=== PATIENT | male | born 1955 | race Caucasian/White ===

== ENCOUNTER 2024-11-29 12:07 | Outpatient (OUT) | payer MEDICARE, OTHER, SELFPAY ==
--- NOTE | 2024-11-29 13:19 | PM.CN ---
Consult Note: HPI Data of Consult Patient: new to practice Requesting Physician: Rima Abraham NP Primary Care Provider: ALEC VANESSA Consult Narrative Reason for consult: neck, right thoracic, low back pain Narrative: Onesimo Caldwell a pleasant 69 year old male presents for evaluation of neck, middle right back, and low back pain worsening over the last 3 months. initially pt reported no injury or known cause of onset, however upon conversation pt reports he fell in july/august with increased pain since. Pain today 2/10 increasing with bending, twisting. utilizing motrin for headaches. has not trialed tylenol or motrin for joint pain/inflammation. failed heat and ice. no imaging or PT per pt. cc:: CC: Rima Abraham NP Meds Home Medications and Allergies Home Medications ?Medication ?Instructions ?Recorded ?Confirmed ?Type fluoxetine 40 mg capsule (Prozac) 40 mg PO QAM 11/29/24 11/29/24 History levothyroxine 75 mcg capsule 75 mcg PO DAILY 11/29/24 11/29/24 History lisinopril 10 mg tablet 10 mg PO DAILY 11/29/24 11/29/24 History metformin 500 mg tablet 500 mg PO BID 11/29/24 11/29/24 History omeprazole 20 mg capsule,delayed 20 mg PO DAILY 11/29/24 11/29/24 History release pravastatin 40 mg tablet 40 mg PO DAILY 11/29/24 11/29/24 History Allergies Allergy/AdvReac Type Severity Reaction Status Date / Time metaxalone (From Skelaxin) Allergy Unknown Unknown Verified 11/29/24 13:04 pioglitazone Allergy Unknown Unknown Verified 11/29/24 13:04 tizanidine Allergy Unknown Unknown Verified 11/29/24 13:04 Exam Neck & C-Spine Cervical spine: cervical ROM abnormal and pain with cervical ROM Other: positive spurlings strength intact BUE, sensation intact BUE Back & Pelvis Thoracic spine/upper back: thoracic ROM normal; no pain with ROM and no thoracic spinal tenderness Lumbar spine/lower back: lumbar ROM normal; no pain with ROM and no lumbar spinal tenderness Other: notes pain over left flank without rash or tenderness to touch no increased pain with facet loading or palpation strength 5/5 in BLE sensation intact Assessment and Plan Assessment and Plan (1) Cervical spondylosis: (2) Thoracic spondylosis: (3) Lumbar spondylosis: (4) Myalgia: Plan 69 year old male with chronic neck, middle back, low back pain. advised tylenol and NSAIDs PRN. start baclofen 5-10mg BID PRN pain/spasms, risks vs benefits reviewed. PT for neck and back pain. update cervical, thoracic, lumbar xray. f/u 8 weeks to assess response to PT
== END 2024-11-29 12:08 | disposition home or self-care (01) ==
LOC: PM 12:08
PROVIDERS: PCP Internal Medicine; Visit Provider Nurse Practitioner
DX: M47.812 Spondylosis without myelopathy or radiculopathy, cervical region (principal); M47.814 Spondylosis without myelopathy or radiculopathy, thoracic region; M47.816 Spondylosis without myelopathy or radiculopathy, lumbar region; M50.30 Other cervical disc degeneration, unspecified cervical region; M51.369 Other intervertebral disc degeneration, lumbar region without mention of lumbar back pain or lower extremity pain; M48.14 Ankylosing hyperostosis [Forestier], thoracic region; M79.18 Myalgia, other site
CPT/HCPCS: 72050; 72070; 72110; G0463

== ENCOUNTER 2024-11-29 13:33 | Outpatient (OUT) | payer MEDICARE, OTHER, SELFPAY ==
--- NOTE | 2024-11-29 13:39 | XR_ITS ---
[address] [address] Patient Name: NEAL TOBIN MRN: [id number] date: 1955 Sex: M Assigned Patient Location: [facility] Current Patient Location: [facility] Accession/Order Number: [id number] Exam Date: 11/29/2024 15:10 Report Date: 11/29/2024 15:16 At the request of: COLTEN PAEZ NP Procedure: XR thoracic spine 2V 5 views of thecervical spine HISTORY: Chronic cervical, thoracic and lumbar back pain for years. Injury. COMPARISON: 10/02/2022 POSTOPERATIVE CHANGES: None BONY ALIGNMENT: Adequate HYPERMOBILITY::No bending imaging. LISTHESIS:Similar 5 mm C3-4 degenerative retrolisthesis additional mild degenerative listhesis. FRACTURE: None DISC DEGENERATION: Extensive C3-4 spondylosis. Extensive C4-5 spondylosis. Extensive C5-6 spondylosis. Moderate C6-7 spondylosis. FACETS: Multilevel facet degeneration FORAMEN: C3-C7 bilateral bony neural foraminal narrowing DENS: Intact CRANIOCERVICAL JUNCTION: Unremarkable SOFT TISSUES: Unremarkable XR/XR cervical spine 5V IMPRESSION: Extensive multilevel cervical degenerative and degenerative changes. Similar 5 mm C3-4 degenerative retrolisthesis 3 views thoracic spine Anterior hyperostosis. Moderate spondylosis. No acute compression fracture. IMPRESSION: Thoracic spondylosis and hyperostosis. 4 views lumbar spine Extensive L5-S1 spondylosis. Extensive L1-L2 3 spondylosis. Mild L3-4 spondylosis. Adequate alignment. No acute displaced fracture. Anterior hyperostosis. Lower lumbar hypertrophic facet changes. IMPRESSION: Extensive lower lumbar facet degeneration. Extensive L5-S1, L1-2 and L2-3 spondylosis. Impression dictated by: Gigi Garcia M.D. 11/29/2024 3:16 PM Dictation Location: [place] [address] Electronically authenticated by: [id number] Y Date: 11/29/2024 15:16
--- NOTE | 2024-11-29 13:39 | XR_ITS ---
[address] [address] Patient Name: NEAL TOBIN MRN: [id number] date: 1955 Sex: M Assigned Patient Location: [facility] Current Patient Location: [facility] Accession/Order Number: [id number] Exam Date: 11/29/2024 15:10 Report Date: 11/29/2024 15:16 At the request of: COLTEN PAEZ NP Procedure: XR thoracic spine 2V 5 views of thecervical spine HISTORY: Chronic cervical, thoracic and lumbar back pain for years. Injury. COMPARISON: 10/02/2022 POSTOPERATIVE CHANGES: None BONY ALIGNMENT: Adequate HYPERMOBILITY::No bending imaging. LISTHESIS:Similar 5 mm C3-4 degenerative retrolisthesis additional mild degenerative listhesis. FRACTURE: None DISC DEGENERATION: Extensive C3-4 spondylosis. Extensive C4-5 spondylosis. Extensive C5-6 spondylosis. Moderate C6-7 spondylosis. FACETS: Multilevel facet degeneration FORAMEN: C3-C7 bilateral bony neural foraminal narrowing DENS: Intact CRANIOCERVICAL JUNCTION: Unremarkable SOFT TISSUES: Unremarkable XR/XR thoracic spine 2V IMPRESSION: Extensive multilevel cervical degenerative and degenerative changes. Similar 5 mm C3-4 degenerative retrolisthesis 3 views thoracic spine Anterior hyperostosis. Moderate spondylosis. No acute compression fracture. IMPRESSION: Thoracic spondylosis and hyperostosis. 4 views lumbar spine Extensive L5-S1 spondylosis. Extensive L1-L2 3 spondylosis. Mild L3-4 spondylosis. Adequate alignment. No acute displaced fracture. Anterior hyperostosis. Lower lumbar hypertrophic facet changes. IMPRESSION: Extensive lower lumbar facet degeneration. Extensive L5-S1, L1-2 and L2-3 spondylosis. Impression dictated by: Gigi Garcia M.D. 11/29/2024 3:16 PM Dictation Location: [place] [address] Electronically authenticated by: [id number] Y Date: 11/29/2024 15:16
--- NOTE | 2024-11-29 13:41 | XR_ITS ---
[address] [address] Patient Name: NEAL TOBIN MRN: [id number] date: 1955 Sex: M Assigned Patient Location: [facility] Current Patient Location: [facility] Accession/Order Number: [id number] Exam Date: 11/29/2024 15:10 Report Date: 11/29/2024 15:16 At the request of: COLTEN PAEZ NP Procedure: XR thoracic spine 2V 5 views of thecervical spine HISTORY: Chronic cervical, thoracic and lumbar back pain for years. Injury. COMPARISON: 10/02/2022 POSTOPERATIVE CHANGES: None BONY ALIGNMENT: Adequate HYPERMOBILITY::No bending imaging. LISTHESIS:Similar 5 mm C3-4 degenerative retrolisthesis additional mild degenerative listhesis. FRACTURE: None DISC DEGENERATION: Extensive C3-4 spondylosis. Extensive C4-5 spondylosis. Extensive C5-6 spondylosis. Moderate C6-7 spondylosis. FACETS: Multilevel facet degeneration FORAMEN: C3-C7 bilateral bony neural foraminal narrowing DENS: Intact CRANIOCERVICAL JUNCTION: Unremarkable SOFT TISSUES: Unremarkable XR/XR lumbar spine min 4V IMPRESSION: Extensive multilevel cervical degenerative and degenerative changes. Similar 5 mm C3-4 degenerative retrolisthesis 3 views thoracic spine Anterior hyperostosis. Moderate spondylosis. No acute compression fracture. IMPRESSION: Thoracic spondylosis and hyperostosis. 4 views lumbar spine Extensive L5-S1 spondylosis. Extensive L1-L2 3 spondylosis. Mild L3-4 spondylosis. Adequate alignment. No acute displaced fracture. Anterior hyperostosis. Lower lumbar hypertrophic facet changes. IMPRESSION: Extensive lower lumbar facet degeneration. Extensive L5-S1, L1-2 and L2-3 spondylosis. Impression dictated by: Gigi Garcia M.D. 11/29/2024 3:16 PM Dictation Location: [place] [address] Electronically authenticated by: [id number] Y Date: 11/29/2024 15:16
== END 2024-11-29 13:34 | disposition home or self-care (01) ==
LOC: RAD 13:35
PROVIDERS: PCP Internal Medicine; Visit Provider Nurse Practitioner
DX: M47.816 Spondylosis without myelopathy or radiculopathy, lumbar region (principal); M47.814 Spondylosis without myelopathy or radiculopathy, thoracic region; M47.812 Spondylosis without myelopathy or radiculopathy, cervical region; M50.30 Other cervical disc degeneration, unspecified cervical region; M48.14 Ankylosing hyperostosis [Forestier], thoracic region
CPT/HCPCS: 72050; 72070; 72110

== ENCOUNTER 2024-12-04 10:27 | Outpatient (RCR) | payer MEDICARE, OTHER, SELFPAY | END 2025-02-02 07:42 | disposition home or self-care (01) | LOC: PT 10:27 | PROVIDERS: PCP Internal Medicine; Visit Provider Nurse Practitioner | DX: M47.812 Spondylosis without myelopathy or radiculopathy, cervical region (principal); M47.816 Spondylosis without myelopathy or radiculopathy, lumbar region | CPT/HCPCS: 97110; 97112; 97140; 97163 ==

== ENCOUNTER 2024-12-15 13:33 | Outpatient (OUT) | payer MEDICARE, OTHER, SELFPAY ==
--- NOTE | 2024-12-15 13:35 | MR_ITS ---
The [address] [address] Patient Name: NEAL TOBIN MRN: [id number] date: 1955 Sex: M Assigned Patient Location: [facility] Current Patient Location: [facility] Accession/Order Number: [id number] Exam Date: 12/15/2024 14:53 Report Date: 12/15/2024 14:58 At the request of: COLTEN PAEZ NP Procedure: MR cervical spine wo con MR cervical spine wo con 12/15/2024 2:20 PM SIGNS AND SYMPTOMS: Chronic back pain left greater than right PROTOCOL: Multiplanar multisequence MR images of the cervical spine without IV contrast COMPARISON: None. FINDINGS: There is 5 mm of retrolisthesis of C3 upon C4. The bones are in anatomic alignment otherwise. There is preservation of vertebral body heights. There is moderate disc height loss at C3-4 with Modic type I endplate edema. There is mild disc height loss at C4-5, C5-6, and C6-C7. The cord is normal in signal. No epidural or paraspinous fluid collection is appreciated. The visualized paraspinous soft tissues are within normal limits. The prevertebral soft tissues are within normal limits. At C2-C3: Facet degenerative changes are present with operative joint spurring contributing to moderate severe left neural foraminal narrowing with mild right neural foraminal narrowing. No spinal canal narrowing. At C3-C4: There is a broad-based disc bulge with facet hypertrophy joint degenerative change contributing to severe bilateral neural foraminal narrowing right greater than left. There is moderate spinal canal stenosis. At C4-C5: There is a broad-based disc bulge with facet hypertrophy and uncovertebral joint spurring. There is moderate spinal canal narrowing with severe right and moderate to severe left neural foraminal stenosis. At C5-C6: There is a broad-based disc bulge with facet hypertrophy and uncovertebral joint spurring. There is moderate spinal canal stenosis with severe right and moderate to severe left neural foraminal stenosis. At C6-C7: There is a broad-based disc bulge with facet and operative joint degenerative change. There is severe left and moderate to severe right neural foraminal narrowing. There is mild spinal canal narrowing. At C7-T1: There is a normal disc, central canal, and neural foramen. MR/MR cervical spine wo con IMPRESSION: No cord compression or cord signal abnormality. Significant multilevel spinal canal and neural foraminal stenosis is present as detailed above. There is 5 mm of retrolisthesis of C3 upon C4. Impression dictated by: Carmelo Kramer M.D. 12/15/2024 2:58 PM Dictation Location: [place] [address] Electronically authenticated by: [id number] Y Date: 12/15/2024 14:58
== END 2024-12-15 13:34 | disposition home or self-care (01) ==
LOC: MRI 13:33
PROVIDERS: PCP Internal Medicine; Visit Provider Nurse Practitioner
DX: M47.812 Spondylosis without myelopathy or radiculopathy, cervical region (principal); M48.02 Spinal stenosis, cervical region
CPT/HCPCS: 72141

== ENCOUNTER 2025-01-24 13:15 | Outpatient (OUT) | payer MEDICARE, OTHER, SELFPAY ==
--- OUTSIDE RECORDS SUMMARY | 2025-01-24 13:17 | XMS_ITS | Clinical Summary ---
Author Organization [facility] Address [address] [place], [place] [id number] Care Team Providers Care Programming Development Project Manager Name Role Phone Mann Baker MD Primary Care Provider [phone] Allergies Active Allergy Reactions Criticality Noted Date Comments Metaxalone Unknown 02/20/2014 Medications SUMAtriptan (IMITREX) 50 mg tablet Take 50 mg by mouth as needed. Active Omeprazole Magnesium (PRILOSEC OTC) 20 mg tablet Take 20 mg by mouth twice daily. Active pravastatin (PRAVACHOL) 40 mg tablet Take 40 mg by mouth once daily. Active levothyroxine (LEVOXYL) 100 mcg tablet Take 100 mcg by mouth daily before breakfast. Active FLUoxetine HCl (PROZAC) 40 mg capsule Take 40 mg by mouth once daily. Active FLUOXETINE HCL (PROZAC ORAL) Take 80 mg by mouth once daily. Active haloperidol 0.5 mg tablet Take 0.5 mg by mouth once daily. Active albuterol HFA (VENTOLIN HFA) 90 mcg/actuation inhaler Inhale 2 Puffs as instructed every 6 hours as needed. Active aspirin, enteric coated 81 mg EC tablet Take 81 mg by mouth once daily. Active ferrous sulfate 325 mg (65 mg iron) tablet Take 325 mg by mouth daily with breakfast. Active glipiZIDE (GLUCOTROL) 10 mg tablet Take 10 mg by mouth twice daily before meals. Active lisinopril (ZESTRIL, PRINIVIL) 5 mg tablet Take 5 mg by mouth once daily. Active metFORMIN (GLUCOPHAGE) 500 mg tablet Take 500 mg by mouth twice daily with meals. Active sucralfate (CARAFATE) 1 gram tablet Take 1 g by mouth four times daily. Active Active Problems Problem Noted Date Diagnosed Date Herniated disc Overview (02/13/2014): c5/6 OCD (obsessive compulsive disorder) Hypothyroidism DM (diabetes mellitus) Hyperlipidemia Colon cancer Tourette's Family History Medical History Relation Comments Coronary Artery Disease Father age 78 c omplications gallbladder surgery Colon Cancer Mother age 72 [place] Relation Status Comments Father Mother Social History Tobacco Use Types Packs/Day Years Used Date Smoking Tobacco: Former Cigarettes 1.5 31 0 06/21/1974 - 06/21/2005 Alcohol Use Standard Drinks/Week Comments No 0 (1 standard drink = 0.6 oz pur e alcohol) PHQ-2 Answer Date Recorded PHQ-2 score 0 04/14/2018 Area Deprivation Index Answer Date Jeevan rded National Score (1-100), lower number is lower ri sk Not on file 05/29/2020 State Score (1-10), lower number is lower risk N ot on file 05/29/2020 Data from: https://www.neighborhoodatlas.medicine.[facility]/. Last address used for calculation Not on file 05/29/2020 Sex and Gender Information Value Date Recorded Sex Assigned at Not on file Legal Sex Male 9:14 AM EDT Gender Identity Not on file Sexual Orientation Not on file Last Filed Vital Signs Vital Sign Reading Time Taken Comments Blood Pressure 129/83 04/14/2018 10:27 AM EDT Pulse 78 04/14/2018 10:27 AM EDT Temperature 36.6 C (97.9 F) 04/14/2018 10:27 AM EDT Respiratory Rate 18 04/14/2018 10:27 AM EDT Oxygen Saturation 100% 04/14/2018 10:27 AM EDT Inhaled Oxygen Concentration - - Weight 88.2 kg (194 lb 8 oz) 04/14/2018 10:27 AM EDT Height 182.9 cm (6' 0.01 ) 04/14/2018 10:27 AM E DT Body Mass Index 26.37 04/14/2018 10:27 AM EDT Plan of Treatment Health Maintenance Due Date Last Done Comments Abdominal Aortic Aneurysm Screening 1955 Anxiety Screening 1975 Depression Screening 1975 Hepatitis C Screening 1975 DTaP,Tdap,Td Vaccine (1 - Tdap) 02/05/1976 Lipid Screening 02/05/1992 CT Colonography 2002 Cologuard (FIT-DNA) 2002 Colonoscopy 2002 Colorectal Cancer Screening 2002 Fecal Occult Blood 2002 Prostate Cancer Screening Discussion 2002 Sigmoidoscopy 2002 Pneumococcal Vaccine: 50+ (1 of 1 - PCV) 2007 Shingrix Vaccine (1 of 2) 2007 Diabetes Screening 07/16/2021 07/16/2018 Advance Directive Discussion 06/21/2024 Influenza Vaccine (#1) 2025 RSV Vaccine (1 - 1-dose 75+ series) 02/05/2032 Insurance [employer] Care Teams Programming Development Project Manager Relationship Specialty Start Date End Date Mann Baker MD [address] [place] [address] PCP - General Family Medicine 03/24/18
--- NOTE | 2025-01-24 13:55 | PM.CN ---
Consult Note: HPI Data of Consult Patient: known to practice within the last 3 years Requesting Physician: Rima Abraham NP Primary Care Provider: ALEC VANESSA Consult Narrative Reason for consult: neck, right thoracic, low back pain Narrative: Onesimo Caldwell a pleasant 69 year old male presents for evaluation of neck, middle right back, and low back pain worsening over the last 5 months. initially pt reported no injury or known cause of onset, however upon conversation pt reports he fell in july/august with increased pain since. Pain today 2/10 increasing with bending, twisting. utilizing motrin for headaches. utilizing baclofen prn with benefit without side effects. underwent cervical, thoracic, and lumbar xray as well as cervical MRI which is consistent with degenerative disc disease, facet arthropathy, and cervical stenosis. cc:: CC: Rima Abraham NP Meds Home Medications and Allergies Home Medications ?Medication ?Instructions ?Recorded ?Confirmed ?Type fluoxetine 40 mg capsule (Prozac) 40 mg PO QAM 11/29/24 11/29/24 History levothyroxine 75 mcg capsule 75 mcg PO DAILY 11/29/24 11/29/24 History lisinopril 10 mg tablet 10 mg PO DAILY 11/29/24 11/29/24 History metformin 500 mg tablet 500 mg PO BID 11/29/24 11/29/24 History omeprazole 20 mg capsule,delayed 20 mg PO DAILY 11/29/24 11/29/24 History release pravastatin 40 mg tablet 40 mg PO DAILY 11/29/24 11/29/24 History Allergies Allergy/AdvReac Type Severity Reaction Status Date / Time metaxalone (From Skelaxin) Allergy Unknown Unknown Verified 11/29/24 13:04 pioglitazone Allergy Unknown Unknown Verified 11/29/24 13:04 tizanidine Allergy Unknown Unknown Verified 11/29/24 13:04 Exam Neck & C-Spine Cervical spine: cervical ROM abnormal and pain with cervical ROM Other: positive spurlings decreased sensation to left C5,6,7 strength intact BUE Back & Pelvis Thoracic spine/upper back: thoracic ROM normal; no pain with ROM and no thoracic spinal tenderness Lumbar spine/lower back: lumbar ROM normal; no pain with ROM and no lumbar spinal tenderness Other: no increased pain with facet loading or palpation strength 5/5 in BLE sensation intact Assessment and Plan Assessment and Plan (1) Cervical spinal stenosis: (2) Cervical radiculopathy: (3) Cervical spondylosis: (4) Thoracic spondylosis: (5) Lumbar spondylosis: (6) Myalgia: Plan imaging reviewed with pt, recommend left C5,6,7 TFESI under fluoroscopy but pt would like to defer at this time. informational handout provided. continue current medications. f/u PRN at this time
== END 2025-01-24 13:16 | disposition home or self-care (01) ==
LOC: PM 13:15
PROVIDERS: PCP Internal Medicine; Visit Provider Nurse Practitioner
DX: M48.02 Spinal stenosis, cervical region (principal); M54.12 Radiculopathy, cervical region; M47.812 Spondylosis without myelopathy or radiculopathy, cervical region; M47.814 Spondylosis without myelopathy or radiculopathy, thoracic region; M47.816 Spondylosis without myelopathy or radiculopathy, lumbar region; M79.18 Myalgia, other site
CPT/HCPCS: G0463

== ENCOUNTER 2025-02-05 09:25 | Day surgery (SDC) | payer MEDICARE, OTHER, SELFPAY ==
--- OUTSIDE RECORDS SUMMARY | 2025-01-31 16:00 | XMS_ITS | Encounter Summary ---
Author Organization [facility] tem Address [facility] [id number] [address] [place] [address] Care Team Providers Care Franchise Sales Manager Name Role Phone Javier Espinosa DO Primary Care Provider [phone] Reason for Referral * Consultation (Routine) - Authorized Specialty Diagnoses / Procedures Referred By Contac t Referred To Contact Nutrition Diagnoses Type 2 diabetes mellitus with diabetic polyneuropathy, without long-term current use of insulin ([facility]) Javier Espinosa DO [address] [place] [address] Phone: tel: fax: [facility] - Nutrition Services [address] [place] [address] Phone: tel: fax: Referral ID Status Reason Start Date Expiration Date V isits Requested Visits Authorized [id number] Authorized 01/31/2025 01/31/2026 1 1 Reason for Visit * Reason Comments intermittent lower abd pain Encounter Details Date Type Department Care Team (Late st Contact Info) Description 01/31/2025 4:00 PM EDT Office Visit [facility] Internal Medicine - Family Medicine [address] [place] [address] Javier Espinosa DO [address] [place] [address] Type 2 diabetes mellitus with diabetic polyneuropathy, without long-term current use of insulin ([facility]) (Primary Dx); Dea rash of groin; Laryngopharyngeal reflux (LPR) Social History Tobacco Use Types Packs/Day Years Used Date Smoking Tobacco: Former Cigarettes 1.5 20 1 982 - 2001 Smokeless Tobacco: Never Comments:Quit over 20 years ago Alcohol Use Standard Drinks/Week Comments Not Currently 0 (1 standard drink = 0.6 oz pur e alcohol) PHQ-2 Answer Date Recorded Total Score 0 01/31/2025 Childcare Answer Date Recorded Childcare Unknown 11/30/2018 Employment Answer Date Recorded Employment Unknown 11/30/2018 Hunger Screening Answer Date Recorded Within the past 12 months we worried whether our food would run out before we got money to buy more. Never True 01/31/2025 Within the past 12 months th e food we bought just didn't last and we didn't have money to get more. Never True 01/31/2025 Purpose - Life Answer Date Recorded Purpose and direction in life Unknown Sex and Gender Information Value Date Recorded Sex Assigned at Not on file Legal Sex Male 11:29 AM EDT Gender Identity Not on file Sexual Orientation Not on file documented as of this encounter Last Filed Vital Signs Vital Sign Reading Time Taken Comments Blood Pressure 110/78 01/31/2025 4:28 PM EDT Pulse 53 01/31/2025 4:28 PM EDT Temperature 36.6 C (97.8 F) 01/31/2025 4:28 PM EDT Respiratory Rate 18 01/31/2025 4:28 PM EDT Oxygen Saturation 98% 01/31/2025 4:28 PM EDT Inhaled Oxygen Concentration - - Weight 93.9 kg (207 lb) 01/31/2025 4:28 PM EDT Height 180.3 cm (5' 10.98 ) 01/31/2025 4:28 PM E DT Body Mass Index 28.88 01/31/2025 4:28 PM EDT documented in this encounter Progress Notes * Javier Espinosa DO - 01/31/2025 4:00 PM EDT Images from the original note were not included. IM PROGRESS NOTE Patient - Onesimo E Javi Age - 69 y.o. - 1955 [facility] # - [id number] ASSESSMENT & PLAN 1. Type 2 diabetes mellitus with diabetic polyneuropathy, without long-term current use of insulin ([facility]) (Primary) -goals of treatment reviewed with the patient -currently on metformin 500 mg b.i.d. -we discussed the importance of diet in controlling his diabetes -referral to dietitian for carb counting and increased fiber in his diet - [facility] - Nutrition Services; Future 2. Dea rash of groin -classic candidal rash in his groin and scrotal area -advised patient to wash the area well and dry completely before applying nystatin powder to the area on a daily basis - nystatin (MYCOSTATIN) powder; Apply 1 Application topically in the morning and 1 Application at noon and 1 Application in the evening and 1 Application before bedtime. Dispense: 30 g; Refill: 0 3. Laryngopharyngeal reflux (LPR) -we discussed control of the LPR in the rolls of medication -currently well controlled with omeprazole every other day, and this does minimize risks associatedwith long-term use of omeprazole -unfortunately, patient still worried about long-term effects and would like to try something different -he was advised he may stop the daily use of omeprazole, and use it p.r.n. he may also use a p.r.n.and acid to control symptoms if this is feasible Subjective 69-year-old male presents for a multitude of issues. Initially he scheduled this because he thoughthe was having more abdominal pain. However, he was seen by General surgery, and was scheduled for acolonoscopy to recheck on his colon cancer with resection. However he had to cancel the colonoscopybecause of transportation issues. The discomfort he originally was experiencing is now gone. -however, he is concerned that his diet may be affecting his bowels, as well as his diabetes. He typically eats TV dinners, and other processed foods for his evening meal. Does not follow any specific diet, in his never had any instruction in a diabetic diet. -patient stopped taking his Trelegy because he could not afford the medication. Insurance would notcover and it was going to cost him $ 900. -he is concerned about continuing to use omeprazole. In the past I tried taking him off of the omeprazole, but he said his heartburn and LPR were not controlled, and so we started the omeprazole every other day. He says this is controlling the symptoms and is wondering about replacing it with baking soda. A review of systems was negative except for the following: Dermatological: rash and has been noted in his groin and scrotal region bilaterally for the past year. Is intermittent, but generally worse during the summer and when he is sweating more. He has tried various OTC creams and has not been able to make it go away. He has never shown it to anyone in the past, and has never had any official treatment.. Exam BP 110/78 (BP Site: Left Arm, BP Postition: Sitting, BP CUFF SIZE: S (7-9 inches)) Pulse 53 Temp 36.6 ??C (97.8 ??F) (Tympanic) Resp 18 Ht 180.3 cm (5' 10.98 ) Wt 93.9 kg (207 lb) SpO2 98% BMI 28.88 kg/m?? Physical Exam Vitals reviewed. Constitutional: General: He is not in acute distress. Appearance: He is well-developed. He is not toxic-appearing. Comments: Overweight HENT: Head: Normocephalic. Right Ear: External ear normal. Left Ear: External ear normal. Nose: Nose normal. Mouth/Throat: Mouth: Mucous membranes are moist. Eyes: General: No scleral icterus. Neck: Vascular: No carotid bruit. Cardiovascular: Rate and Rhythm: Normal rate and regular rhythm. Heart sounds: No murmur heard. No gallop. Pulmonary: Effort: Pulmonary effort is normal. Breath sounds: No wheezing or rales. Abdominal: General: There is no distension. Palpations: Abdomen is soft. Tenderness: There is no abdominal tenderness. There is no guarding. Genitourinary: Pubic Area: Rash present. Comments: [place], slightly raised, macerated skin in the bilateral groin region extending under the scrotum and between the thighs Musculoskeletal: Right lower leg: No edema. Left lower leg: No edema. Comments: Lumbar flexion normal. Lumbar extension restricted, but without pain Lymphadenopathy: Cervical: No cervical adenopathy. Skin: General: Skin is warm and dry. Coloration: Skin is not jaundiced. Findings: No bruising. Neurological: Mental Status: He is alert and oriented to person, place, and time. Sensory: Sensory deficit (Loss of vibratory sensation in stocking-glove distribution to above the ankles bilaterally.) present. Motor: No weakness. Coordination: Coordination normal. Psychiatric: Mood and Affect: Mood normal. Behavior: Behavior normal. Meds Current Outpatient Medications: albuterol (PROVENTIL,VENTOLIN) 2.5 mg /3 mL (0.083 %) nebulizer solution, Inhale 3 mL (2.5 mg total) by nebulization 4 (four) times a day., Disp: 75 mL, Rfl: 1 artificial tears,hypromellose, (ISOPTO TEARS) 0.5 % ophthalmic solution, Administer 1 drop to both eyes as needed (15)., Disp: 15 mL, Rfl: 0 azelastine (ASTELIN) 137 mcg (0.1 %) nasal spray, One spray in each nostril as needed for congestion or nose pain, Disp: 30 mL, Rfl: 2 cyanocobalamin 1000 MCG tablet, TAKE 1 TABLET BY MOUTH EVERY MORNING, Disp: 90 tablet, Rfl: 1 FLUoxetine (PROzac) 40 mg capsule, TAKE 1 CAPSULE BY MOUTH EVERY MORNING, Disp: 90 capsule, Rfl: 0 hydrocortisone (HYTONE) 1 % ointment, , Disp: , Rfl: ibuprofen (MOTRIN) 800 mg tablet, Take 1 tablet (800 mg total) by mouth every 6 (six) hours as needed for pain., Disp: 21 tablet, Rfl: 0 levothyroxine (SYNTHROID, LEVOTHROID) 75 MCG tablet, TAKE 1 TABLET BY MOUTH EVERY MORNING ON AN EMPTY STOMACH SIX DAYS PER WEEK, Disp: 77 tablet, Rfl: 1 lisinopriL (PRINIVIL,ZESTRIL) 10 mg tablet, TAKE 1 TABLET BY MOUTH EVERY MORNING, Disp: 90 tablet, Rfl: 0 metFORMIN XR (GLUCOPHAGE XR) 500 mg 24 hr tablet, TAKE 1 TABLET BY MOUTH EVERY MORNING AND 1 TABLETBEFORE BEDTIME, Disp: 180 tablet, Rfl: 0 metroNIDAZOLE (MetrogeL) 1 % gel, Apply 1 Application topically in the morning., Disp: 60 g, Rfl: 0 pravastatin (PRAVACHOL) 40 mg tablet, TAKE 1 TABLET BY MOUTH EVERY MORNING, Disp: 90 tablet, Rfl: 1 psyllium husk (METAMUCIL ORAL), in the morning., Disp: , Rfl: vlfgatcxvyj-yfscrgkxf-jawaqlwk (TRELEGY ELLIPTA) 200-62.5-25 mcg blister with device, Inhale 1 puffin the morning. (Patient not taking: Reported on 01/31/2025), Disp: 180 each, Rfl: 1 nystatin (MYCOSTATIN) powder, Apply 1 Application topically in the morning and 1 Application at noon and 1 Application in the evening and 1 Application before bedtime., Disp: 30 g, Rfl: 0 Lab Results No visits with results within 1 Month(s) from this visit. Latest known visit with results is: Office Visit on 11/21/2024 Component Date Value Ref Range Status CHOLESTEROL 11/21/2024 159 150 - 200 mg/dL Final TRIGLYCERIDE 11/21/2024 233 (H) 27 - 150 mg/dL Final HDL CHOLESTEROL 11/21/2024 51 >39 mg/dL Final LDL (CALC) 11/21/2024 61 <130 mg/dL Final CHOLESTEROL:HDL 11/21/2024 3.1 1.0 - 5.0 Final VERY LOW LIPOPROTEIN 11/21/2024 47 (H) 0 - 30 mg/dL Final SODIUM 11/21/2024 139 134 - 146 mmol/L Final POTASSIUM 11/21/2024 4.6 3.5 - 5.0 mmol/L Final CHLORIDE 11/21/2024 106 98 - 109 mmol/L Final CARBON DIOXIDE 11/21/2024 23 22 - 32 mmol/L Final ANION GAP 11/21/2024 10 5 - 15 mmol/L Final BLOOD UREA NITROGEN 11/21/2024 18 5 - 27 mg/dL Final CREATININE 11/21/2024 1.12 0.60 - 1.30 mg/dL Final GLUCOSE 11/21/2024 112 (H) 65 - 99 mg/dL Final CALCIUM 11/21/2024 9.7 8.5 - 10.5 mg/dL Final TOTAL PROTEIN 11/21/2024 7.0 6.0 - 8.0 g/dL Final ALBUMIN 11/21/2024 4.5 3.2 - 5.3 g/dL Final ALKALINE PHOSPHATASE 11/21/2024 76 39 - 130 U/L Final AST 11/21/2024 18 <=41 U/L Final ALT 11/21/2024 14 <=40 U/L Final BILIRUBIN,TOTAL 11/21/2024 0.6 0.3 - 1.2 mg/dL Final EGFR Non-Race Dependent 11/21/2024 72 >=60 ml/min/1.73sq.m Final HEMOGLOBIN A1C 11/21/2024 6.6 (H) 4.4 - 5.6 % Final EST. AVERAGE GLUCOSE 11/21/2024 143 mg/dL Final FREE T4 11/21/2024 0.77 0.61 - 1.60 ng/dL Final TSH 11/21/2024 3.02 0.49 - 4.67 uIU/mL Final Other Testing No results found. Javier Espinosa DO., JEFF [facility] Office: [phone] documented in this encounter Plan of Treatment Upcoming Encounters Date Type Department Care Team (Late st Contact Info) Description 03/08/2025 1:00 PM EDT Support Visit [facility] - Diabetes and Nutrition Education [address] [place] [address] Javier Espinosa DO [address] [place] [address] Madelaine Schulz LD 03/27/2025 3:00 PM EDT Office Visit [facility] Internal Medicine - Family Medicine [address] [place] [address] Javier Espinosa DO [address] [place] [address] Scheduled Referrals Name Type Priority Associated Diagnoses Order Schedule [facility] - Nutrition Services Outpatient Referral Routine Type 2 diabetes mellitus with diabetic polyneuropathy, without long-term current use of insulin ([facility]) 1 Occurrences starting 01/31/2025 until 01/31/2026 documented as of this encounter Visit Diagnoses Diagnosis Type 2 diabetes mellitus with diabetic polyneuropathy, without long-term current use of insulin ([facility])- Primary Dea rash of groin Laryngopharyngeal reflux (LPR) documented in this encounter Additional Health Concerns Assessment Noted Time PHQ-9 Depression Total Score: 0 02/01/20 25 4:28 PM EDT documented as of this encounter Care Teams Franchise Sales Manager Relationship Specialty Start Date End Date Javier Espinosa DO [facility] [address] [place] [id number] PCP - General Internal Medicine 04/13/24 documented as of this encounter
--- OUTSIDE RECORDS SUMMARY | 2025-02-05 09:28 | XMS_ITS | Encounter Summary ---
Author Organization [facility] tem Address [id number] [address] [place] [address] Care Team Providers Care Wax Pattern Coater Name Role Phone Javier Espinosa DO Primary Care Provider [phone] Encounter Details Date Type Department Care Team (Late st Contact Info) Description [facility]/10[facility] [address] [place] [phone] Jennifer Coleman CMA Social History Tobacco Use Types Packs/Day Years Used Date Smoking Tobacco: Former Cigarettes 1.5 20 1 982 - 2002 Smokeless Tobacco: Never Comments:Quit over 20 years ago Alcohol Use Standard Drinks/Week Comments Not Currently 0 (1 standard drink = 0.6 oz pur e alcohol) PHQ-2 Answer Date Recorded Total Score 0 05/09/2024 Childcare Answer Date Recorded Childcare Unknown 11/30/2018 Employment Answer Date Recorded Employment Unknown 11/30/2018 Hunger Screening Answer Date Recorded Within the past 12 months we worried whether our food would run out before we got money to buy more. Never True 05/09/2024 Within the past 12 months th e food we bought just didn't last and we didn't have money to get more. Never True 05/09/2024 Purpose - Life Answer Date Recorded Purpose and direction in life Unknown Sex and Gender Information Value Date Recorded Sex Assigned at Not on file Legal Sex Male 11:29 AM EDT Gender Identity Not on file Sexual Orientation Not on file documented as of this encounter Miscellaneous Notes * Telephone Encounter - Jennifer Coleman CMA - 05/10/2024 11:13 AM EST ----- Message from Dr. Javier Espinosa DO sent at 05/10/2024 10:52 AM EST ----- So, does he want to do the B12 injections? ----- Message ----- From: Kaleb Rivera CMA Sent: 05/10/2024 9:03 AM EST To: Javier Espinosa DO I called pt and read result note. Pt verbally states he understands. He is taking the B12 everyday.I told him to make sure he is taking his Thyroid med on a empty stomach waiting a hour before eating. * Telephone Encounter - Jennifer Coleman CMA - 05/10/2024 11:13 AM EST Yes pt would like to start the B12 injections. * Telephone Encounter - Javier Espinosa DO - 05/10/2024 11:13 AM EST Message noted. I set up the injections at the infusion center at [facility] They should be contacting him * Telephone Encounter - Kaleb Rivera CMA - 05/10/2024 11:13 AM EST I called pt and let him know. They should be calling him. Also Should he stop taking the B12 supplements once he starts the injections? * Telephone Encounter - Javier Espinosa DO - 05/10/2024 11:13 AM EST Message noted. Yes * Telephone Encounter - Kaleb Rivera CMA - 05/10/2024 11:13 AM EST I called and told him. documented in this encounter Plan of Treatment Upcoming Encounters Date Type Department Care Team (Late st Contact Info) Description 03/08/2025 1:00 PM EDT Support Visit [facility] - Diabetes and Nutrition Education [address] [place] [place] [address] Javier Espinosa, [address] [facility] [place] [address] Madelaine Schulz LD 03/27/2025 3:00 PM EDT Office Visit [facility]icians Internal Medicine - Family Medicine [address] [place] [address] Javier Espinosa DO [address] [place] [address] documented as of this encounter Visit Diagnoses Not on filedocumented in this encounter Additional Health Concerns Infection Onset Date Last Indicated Resolved Time Respiratory Rule-Out 08/28/2024 08/28/2024 025 11:18 AM EDT Assessment Noted Time PHQ-9 Depression Total Score: 0 05/09/20 2:11 PM EST documented as of this encounter Care Teams Wax Pattern Coater Relationship Specialty Start Date End Date Javier Espinosa DO [address] [place] [address] PCP - General Internal Medicine 04/13/24 documented as of this encounter
--- OUTSIDE RECORDS SUMMARY | 2025-02-05 09:28 | XMS_ITS | Encounter Summary ---
Author Organization [facility] tem Address [id number] [address] [place] [address] Care Team Providers Care Honey Grader And Blender Name Role Phone Javier Espinosa DO Primary Care Provider [phone] Encounter Details Date Type Department Care Team (Late st Contact Info) Description 08/24/2024 Orders Only [facility] Internal Medicine - Family Medicine [address] [place] [address] Javier Espinosa DO [address] [place] [address] Hypothyroidism, unspecified type Social History Tobacco Use Types Packs/Day Years Used Date Smoking Tobacco: Former Cigarettes 1.5 20 1 982 - 2002 Smokeless Tobacco: Never Comments:Quit over 20 years ago Alcohol Use Standard Drinks/Week Comments Not Currently 0 (1 standard drink = 0.6 oz pur e alcohol) PHQ-2 Answer Date Recorded Total Score 0 08/23/2024 Childcare Answer Date Recorded Childcare Unknown 11/30/2018 Employment Answer Date Recorded Employment Unknown 11/30/2018 Hunger Screening Answer Date Recorded Within the past 12 months we worried whether our food would run out before we got money to buy more. Never True 08/23/2024 Within the past 12 months th e food we bought just didn't last and we didn't have money to get more. Never True 08/23/2024 Purpose - Life Answer Date Recorded Purpose and direction in life Unknown Sex and Gender Information Value Date Recorded Sex Assigned at Not on file Legal Sex Male 11:29 AM EDT Gender Identity Not on file Sexual Orientation Not on file documented as of this encounter Plan of Treatment Upcoming Encounters Date Type Department Care Team (Late st Contact Info) Description 03/08/2025 1:00 PM EDT Support Visit [facility] - Diabetes and Nutrition Education [address] [place] [address] Javier Espinosa, DO [address] [place] [address] Madelaine Schulz LD 03/27/2025 3:00 PM EDT Office Visit [facility]icians Internal Medicine - Family Medicine [address] [place] [address] Javier Espinosa DO [address] [place] [address] documented as of this encounter Visit Diagnoses Diagnosis Hypothyroidism, unspecified type documented in this encounter Additional Health Concerns Infection Onset Date Last Indicated Resolved Time Respiratory Rule-Out 08/28/2024 08/28/2024 025 11:18 AM EDT Assessment Noted Time PHQ-9 Depression Total Score: 0 08/24/19 25 2:37 PM EST documented as of this encounter Care Teams Honey Grader And Blender Relationship Specialty Start Date End Date Javier Espinosa DO [address] [place] [address] PCP - General Internal Medicine 04/13/24 documented as of this encounter
--- OUTSIDE RECORDS SUMMARY | 2025-02-05 09:28 | XMS_ITS ---
Author Organization [employer] tem Address [facility] [place]-[id number] [address] [place] [address] Care Team Providers Care Agricultural Equipment Operator Name Role Phone Javier Espinosa DO Primary Care Provider [phone] Active Problems Problem Noted Date Diagnosed Date B12 deficiency 05/10/2024 B12 neuropathy 07/08/2023 Type 2 diabetes mellitus wit h diabetic polyneuropathy, without long-term current use of insulin 07/08/2023 OCD (obsessive compulsive disorder) 03/30/2023 Mixed hyperlipidemia 08/29/2019 Current Treatment and Therapy Plans No current plan information found. Other Current Plans Cyanocobalamin (vitamin B12) IM titration to monthly* Plan Start Date:05/31/2024 Plan Provider:Javier Espinosa DO Linked Problems B12 deficiency Treatment Medications No medications scheduled. Past Treatment and Therapy Plans No past plan information found. Lifetime Dose Tracking * Chemical Lifetime Dose Automatic Entry Manual Entr y Fluoroscopy 6.2 mGy 6.2 mGy 0 mGy Resolved Problems Problem Noted Date Diagnosed Date Resolved Date Malignant neoplasm of colon, unspecified part of colon 08/17/2023 07/31/2024
--- OUTSIDE RECORDS SUMMARY | 2025-02-05 09:28 | XMS_ITS | Encounter Summary ---
Author Organization [facility] tem Address [facility] [place]-[id number] [address] [place] [address] Care Team Providers Care Radio Installer Automobile Name Role Phone Javier Espinosa DO Primary Care Provider Encounter Details Date Type Department Care Team (Late st Contact Info) Description 05/10/2024 Orders Only [facility] Internal Medicine - Family Medicine [address] [place] [address] Javier Espinosa DO [address] [place] [address] B12 deficiency (Primary Dx) Social History Tobacco Use Types Packs/Day Years [...] Description 03/08/2025 1:00 PM EDT Support Visit [facility] - Diabetes and Nutrition Education [address] [place] [address] Javier Espinosa, DO [address] [place] [address] Madelaine Schulz LD 03/27/2025 3:00 PM EDT Office Visit [facility] Internal Medicine - Family Medicine [address] [place] [address] Javier Espinosa DO [address] [place] [address] documented as of this encounter Visit Diagnoses Diagnosis B12 deficiency- Primary documented in this encounter Additional Health Concerns Infection Onset Date Last Indicated Resolved Time Respiratory Rule-Out 08/28/2024 08/28/2024 025 11:18 AM EDT Assessment Noted Time PHQ-9 Depression Total Score: 0 05/09/20 24 2:11 PM EST documented as of this encounter Care Teams Radio Installer Automobile Relationship Specialty Start Date End Date Javier Espinosa DO [address] [place] [address] PCP - General Internal Medicine 04/13/24 documented as of this encounter
--- OUTSIDE RECORDS SUMMARY | 2025-02-05 09:29 | XMS_ITS | Encounter Summary ---
Author Organization [facility] tem Address [facility] [place]-[id number] [address] [place] [address] Care Team Providers Care Senior Accounting Manager Name Role Phone Javier Espinosa DO Primary Care Provider [phone] Encounter Details Date Type Department Care Team (Late Contact Info) Description 01/10/2025 Orders Only [facility] Internal Medicine - Family Medicine [address] [place] [address] Ref Prov, [place] [address] Social History Tobacco Use Types Packs/Day Years Used Date Smoking Tobacco: Former Cigarettes 1.5 20 1 982 - 2002 Smokeless Tobacco: Never Comments:Quit over 20 years ago Alcohol Use Standard Drinks/Week Comments Not Currently 0 (1 standard drink = 0.6 oz pur e alcohol) PHQ-2 Answer Date Recorded Total Score 0 11/21/2024 Childcare Answer Date Recorded Childcare Unknown 11/30/2018 Employment Answer Date Recorded Employment Unknown 11/30/2018 Hunger Screening Answer Date Recorded Within the past 12 months we worried whether our food would run out before we got money to buy more. Never True 12/28/2024 Within the past 12 months th e food we bought just didn't last and we didn't have money to get more. Never True 12/28/2024 Purpose - Life Answer Date Recorded Purpose and direction in life Unknown Sex and Gender Information Value Date Recorded Sex Assigned at Not on file Legal Sex Male 11:29 AM EDT Gender Identity Not on file Sexual Orientation Not on file documented as of this encounter Plan of Treatment Upcoming Encounters Date Type Department Care Team (Late Contact Info) Description 03/08/2025 1:00 PM EDT Support Visit [facility] - Diabetes and Nutrition Education [address] [place] [place] [address] Javier Espinosa, DO [address] [facility] [place] [address] Zeus MadelaineSONIA 03/27/2025 3:00 PM EDT Office Visit [facility] Internal Medicine - Family Medicine [address] [place] [address] Javier Espinosa, DO [address] [place] [address] documented as of this encounter Procedures Procedure Name Priority Date/Time Associated Diagnosis Comments XR SPINE CERVICAL 3 VWS OR LESS Routine 11/29/2024 10:58 AM EDT XR LUMBAR SPINE AP, LATERAL, FLEXION AND EXTENSION ONLY Routine 11/29/2024 10:57 AM EDT XR SPINE THORACIC 2 VWS Routine 11/29/2024 10:53 AM EDT documented in this encounter Results * X-ray spine cervical 3 views or less (11/29/2024 10:58 AM EDT) Anatomical Region Laterality Modality MSK, Neuro, Spine, C-spine N/A Compu silvino Radiography us Not In System Ref Prov IMG DIAGNOSTIC IMAGING OR DERABLES Final Result * X-ray spine lumbar ap, lateral, flexion and extension only (11/29/2024 10:57 AM EDT) Anatomical Region Laterality Modality MSK, Neuro, Spine, L-spine N/A Compu silvino Radiography us Not In System Ref Prov IMG DIAGNOSTIC IMAGING OR DERABLES Final Result * X-ray spine thoracic 2 views (11/29/2024 10:53 AM EDT) Anatomical Region Laterality Modality MSK, Neuro, Spine, T-spine N/A Compu silvino Radiography us Not In System Ref Prov IMG DIAGNOSTIC IMAGING OR DERABLES Final Result documented in this encounter Visit Diagnoses Not on filedocumented in this encounter Additional Health Concerns Assessment Noted Time PHQ-9 Depression Total Score: 0 11/22/19 25 2:24 PM EDT documented as of this encounter Care Teams Senior Accounting Manager Relationship Specialty Start Date End Date Javier Espinosa DO [address] [place] [address] PCP - General Internal Medicine 04/13/24 documented as of this encounter
--- OUTSIDE RECORDS SUMMARY | 2025-02-05 09:29 | XMS_ITS | Encounter Summary ---
Author Organization [employer] [facility] tem Address [facility] [id number] [address] [place] [address] Care Team Providers Care Cook Jelly Name Role Phone Javier Espinosa DO Primary Care Provider [phone] Reason for Referral * Physical Therapy (Routine) - Closed Specialty Diagnoses / Procedures Referred By Contac t Referred To Contact Rehabilitation Diagnoses Cervical spondylosis without myelopathy Javier Espinosa DO [address] [place] [address] Phone: tel: fax: [facility] [address] [place] [address] Phone: tel: fax: Referral ID Status Reason Start Date Expiration Date V isits Requested Visits Authorized [id number] Closed Specialty Services Required 08/23/2023 08/22/2024 12 12 Encounter Details Date Type Department Care Team (Late st Contact Info) Description 08/23/2023 Orders Only [facility] Internal Medicine - Family Medicine [address] [place] [address] Javier Espinosa DO [address] [place] [address] Cervical spondylosis without myelopathy (Primary Dx) Social History Tobacco Use Types Packs/Day Years Used Date Smoking Tobacco: Former Cigarettes 1.5 20 1 982 - 2002 Smokeless Tobacco: Never Comments:Quit over 20 years ago Alcohol Use Standard Drinks/Week Comments Not Currently 0 (1 standard drink = 0.6 oz pur e alcohol) PHQ-2 Answer Date Recorded Total Score 0 08/17/2023 Childcare Answer Date Recorded Childcare Unknown 11/30/2018 Employment Answer Date Recorded Employment Unknown 11/30/2018 Hunger Screening Answer Date Recorded Within the past 12 months we worried whether our food would run out before we got money to buy more. Never True 08/17/2023 Within the past 12 months th e food we bought just didn't last and we didn't have money to get more. Never True 08/17/2023 Purpose - Life Answer Date Recorded Purpose [...] Description 03/08/2025 1:00 PM EDT Support Visit [facility] - Diabetes and Nutrition Education [address] [place] [address] Javier Espinosa DO [address] [place] [address] Madelaine Schulz LD 03/27/2025 3:00 PM EDT Office Visit [facility] Internal Medicine - Family Medicine [address] [place] [address] Javier Espinosa DO [address] [place] [address] Scheduled Referrals Name Type Priority Associated Diagnoses Order Schedule Ambulatory referral to Physical Therapy Outpatient Referral Routine Cervical spondylosis without myelopathy 1 Occurrences starting 08/23/2023 until 08/22/2024 documented as of this encounter Visit Diagnoses Diagnosis Cervical spondylosis without myelopathy- Primary documented in this encounter Additional Health Concerns Infection Onset Date Last Indicated Resolved Time Respiratory Rule-Out 08/28/2024 08/28/2024 025 11:18 AM EDT Assessment Noted Time PHQ-9 Depression Total Score: 0 08/17/19 8:10 AM EST documented as of this encounter Care Teams Cook Jelly Relationship Specialty Start Date End Date Javier Espinosa DO [address] [place] [id number] PCP - General Internal Medicine 04/13/24 documented as of this encounter
--- OUTSIDE RECORDS SUMMARY | 2025-02-05 09:29 | XMS_ITS | Encounter Summary ---
Author Organization [employer] [facility] tem Address [facility][id number] [address] [place] [address] Care Team Providers Care Glass Tinter Name Role Phone Javier Espinosa DO Primary Care Provider [phone] Reason for Referral * Consultation (Routine) - Authorized Specialty Diagnoses / Procedures Referred By Contac t Referred To Contact Pain Medicine Diagnoses Cervical spondylosis without myelopathy Javier Espinosa DO [address] [place] [address] Phone: tel: fax: Radha Chinchilla MD [address] [place] [address] Phone: tel: fax: Referral ID Status Reason Start Date Expiration Date V isits Requested Visits Authorized [id number] Authorized 11/07/2024 11/07/2025 4 4 Encounter Details Date Type Department Care Team (Late st Contact Info) Description 11/07/2024 Orders Only [facility] Internal Medicine - Family Medicine [address] [place] [address] Javier Espinosa DO [address] [place] [address] Cervical spondylosis without myelopathy (Primary Dx) Social History Tobacco Use Types Packs/Day Years Used Date Smoking Tobacco: Former Cigarettes 1.5 20 1 982 - 2002 Smokeless Tobacco: Never Comments:Quit over 20 years ago Alcohol Use Standard Drinks/Week Comments Not Currently 0 (1 standard drink = 0.6 oz pur e alcohol) PHQ-2 Answer Date Recorded Total Score 0 10/24/2024 Childcare Answer Date Recorded Childcare Unknown 11/30/2018 Employment Answer Date Recorded Employment Unknown 11/30/2018 Hunger Screening Answer Date Recorded Within the past 12 months we worried whether our food would run out before we got money to buy more. Never True 10/24/2024 Within the past 12 months th e food we bought just didn't last and we didn't have money to get more. Never True 10/24/2024 Purpose - Life Answer Date Recorded Purpose [...] Description 03/08/2025 1:00 PM EDT Support Visit [facility] - Diabetes and Nutrition Education [address] [place] [address] Javier Espinosa DO [address] [place] [address] Madelaine Schulz LD 03/27/2025 3:00 PM EDT Office Visit [facility] Internal Medicine - Family Medicine [address] [place] [address] Javier Espinosa DO [address] [place] [address] documented as of this encounter Results * Ambulatory referral to Pain Management ([facility]) (01/09/2025 4:51 PM EDT) us Javier Espinosa DO OUTPATIENT REFERRAL ORDERABLES F inal Result MANUALLY TRANSCRIBED RESULTS documented in this encounter Visit Diagnoses Diagnosis Cervical spondylosis without myelopathy- Primary documented in this encounter Additional Health Concerns Assessment Noted Time PHQ-9 Depression Total Score: 0 10/25/19 25 4:17 PM EDT documented as of this encounter Care Teams Glass Tinter Relationship Specialty Start Date End Date Javier Espinosa DO [address] [place] [address] PCP - General Internal Medicine 04/13/24 documented as of this encounter
--- OUTSIDE RECORDS SUMMARY | 2025-02-05 09:29 | XMS_ITS | Encounter Summary ---
Author Organization [facility] tem Address [facility] [place]-[id number] [address] [place] [address] Care Team Providers Care Master Coastal Waters Name Role Phone Javier Espinosa DO Primary Care Provider [phone] Reason for Visit * Reason Comments Med Refill Encounter Details Date Type Department Care Team (Late st Contact Info) Description 05/09/2023 Refill [facility] Internal Medicine - Family Medicine [address] [place] [address] Javier Espinosa DO [address] [place] [address] Laryngopharyngeal reflux (LPR) Social History Tobacco Use Types Packs/Day Years Used Date Smoking Tobacco: Former Cigarettes 1.5 20 1 982 - 2002 Smokeless Tobacco: Never Comments:Quit over 20 years ago Alcohol Use Standard Drinks/Week Comments Not Currently 0 (1 standard drink = 0.6 oz pur e alcohol) PHQ-2 Answer Date Recorded Total Score 0 04/26/2023 Childcare Answer Date Recorded Childcare Unknown 11/30/2018 Employment Answer Date Recorded Employment Unknown 11/30/2018 Hunger Screening Answer Date Recorded Within the past 12 months we worried whether our food would run out before we got money to buy more. Never True 04/26/2023 Within the past 12 months th e food we bought just didn't last and we didn't have money to get more. Never True 04/26/2023 Purpose - Life Answer Date Recorded Purpose and direction in life Unknown Sex and Gender Information Value Date Recorded Sex Assigned at Not on file Legal Sex Male 11:29 AM EDT Gender Identity Not on file Sexual Orientation Not on file documented as of this encounter Miscellaneous Notes * Telephone Encounter - Javier Espinosa DO - 05/09/2023 11:21 AM EST Duplicate request documented in this encounter Plan of Treatment Upcoming Encounters Date Type Department Care Team (Late st Contact Info) Description 03/08/2025 1:00 PM EDT Support Visit [facility] - Diabetes and Nutrition Education [address] [place] [address] Javier Espinosa DO [address] [place] [address] Madelaine Schulz LD 03/27/2025 3:00 PM EDT Office Visit [facility] Internal Medicine - Family Medicine [address] [place] [address] Javier Espinosa DO [address] [place] [address] documented as of this encounter Visit Diagnoses Diagnosis Laryngopharyngeal reflux (LPR) documented in this encounter Additional Health Concerns Infection Onset Date Last Indicated Resolved Time Respiratory Rule-Out 08/28/2024 08/28/2024 025 11:18 AM EDT Assessment Noted Time PHQ-9 Depression Total Score: 0 04/26/20 23 2:29 PM EST documented as of this encounter Care Teams Master Coastal Waters Relationship Specialty Start Date End Date Javier Espinosa DO [address] [place] [address] PCP - General Internal Medicine 04/13/24 documented as of this encounter
--- OUTSIDE RECORDS SUMMARY | 2025-02-05 09:29 | XMS_ITS | Encounter Summary ---
Author Organization [employer] [facility] tem Address [facility] [id number] [address] [place] [address] Care Team Providers Care Digital Media Associate Name Role Phone Javier Espinosa DO Primary Care Provider [phone] Encounter Details Date Type Department Care Team (Late st Contact Info) Description 06/15/2023 Telephone [facility]icians Internal Medicine - Family Medicine [address] [facility] [place] [address] Katherine Pierson CMA Social History Tobacco Use Types Packs/Day [...] encounter Miscellaneous Notes * Telephone Encounter - Katherine Pierson CMA - 06/15/2023 5:24 PM EST [facility] pharmacy called for pt , they need the quantity changed to 120 if pt is taking 4x a day * Telephone Encounter - Javier Espinosa DO - 06/15/2023 5:24 PM EST What medication? * Telephone Encounter - Katherine Pierson CMA - 06/15/2023 5:24 PM EST Sorry about that , omeprazole 20 mg * Telephone Encounter - Javier Espinosa DO - 06/15/2023 5:24 PM EST Message noted. Rx corrected and sent to [facility] * Telephone Encounter - Katherine Pierson CMA - 06/15/2023 5:24 PM EST Thank you documented in this encounter Plan of Treatment Upcoming Encounters Date Type Department Care Team (Late st Contact Info) Description 03/08/2025 1:00 PM EDT Support Visit [facility] - Diabetes and Nutrition Education [address] [place] [address] Javier Espinosa DO [address] [place] [address] Madelaine Schulz LD 03/27/2025 3:00 PM EDT Office Visit [facility] Internal Medicine - Family Medicine [address] [place] [address] Javier Espinosa DO [address] [place] [address] documented as of this encounter Visit Diagnoses Not on filedocumented in this encounter Additional Health Concerns Infection Onset Date Last Indicated Resolved Time Respiratory Rule-Out 08/28/2024 08/28/2024 025 11:18 AM EDT Assessment Noted Time PHQ-9 Depression Total Score: 0 04/26/20 23 2:29 PM EST documented as of this encounter Care Teams Digital Media Associate Relationship Specialty Start Date End Date Javier Espinosa DO [address] [place] [address] PCP - General Internal Medicine 04/13/24 documented as of this encounter
--- OUTSIDE RECORDS SUMMARY | 2025-02-05 09:29 | XMS_ITS | Encounter Summary ---
Author Organization [facility] [employer] [facility] tem Address [facility] [id number] [address] [place] [address] Care Team Providers Care Coal Washer Name Role Phone Javier Espinosa DO Primary Care Provider [phone] Encounter Details Date Type Department Care Team (Late st Contact Info) Description 12/28/2023 Orders Only [facility] Internal Medicine - Family Medicine [address] [place] [address] Javier Espinosa DO [address] [place] [address] Hypothyroidism, unspecified type (Primary Dx) Social History Tobacco Use Types Packs/Day Years Used Date Smoking Tobacco: Former Cigarettes 1.5 20 1 982 - 2002 Smokeless Tobacco: Never Comments:Quit over 20 years ago Alcohol Use Standard Drinks/Week Comments Not Currently 0 (1 standard drink = 0.6 oz pur e alcohol) PHQ-2 Answer Date Recorded Total Score 0 12/27/2023 Childcare Answer Date Recorded Childcare Unknown 11/30/2018 Employment Answer Date Recorded Employment Unknown 11/30/2018 Hunger Screening Answer Date Recorded Within the past 12 months we worried whether our food would run out before we got money to buy more. Never True 12/27/2023 Within the past 12 months th e food we bought just didn't last and we didn't have money to get more. Never True 12/27/2023 Purpose - Life Answer Date Recorded Purpose [...] 1:00 PM EDT Support Visit [facility] - Diabetes and Nutrition Education [address] [place] [address] Javier Espinosa, DO [address] [place] [address] Zeus MadelaineSONIA 03/27/2025 3:00 PM EDT Office Visit [facility] Physicians Internal Medicine - Family Medicine [address] [place] [address] Javier Espinosa DO [address] [place] [address] documented as of this encounter Visit Diagnoses Diagnosis Hypothyroidism, unspecified type- Primary documented in this encounter Additional Health Concerns Infection Onset Date Last Indicated Resolved Time Respiratory Rule-Out 08/28/2024 08/28/2024 025 11:18 AM EDT Assessment Noted Time PHQ-9 Depression Total Score: 0 12/27/19 24 2:36 PM EDT documented as of this encounter Care Teams Coal Washer Relationship Specialty Start Date End Date Javier Espinosa DO [address] [place] [address] PCP - General Internal Medicine 04/13/24 documented as of this encounter
--- OUTSIDE RECORDS SUMMARY | 2025-02-05 09:29 | XMS_ITS | Encounter Summary ---
Author Organization [employer] [facility] tem Address [facility] [place]-[id number] [address] [place] [address] Care Team Providers Care Credit Operations Specialist Name Role Phone Javier Espinosa DO Primary Care Provider [phone] Encounter Details Date Type Department Care Team (Late st Contact Info) Description 10/26/2024 Telephone [facility] - [facility] Medicine [address] [facility] [place] [address] Katherine Pierson CMA Social History Tobacco Use [...] Telephone Encounter - Katherine Pierson CMA - 10/26/2024 2:45 PM EDT ----- Message from SHERRIE Schroeder sent at 10/25/2024 2:04 PM EDT ----- DM recheck. ??BP recheck ----- Message ----- From: Javier Espinosa DO Sent: 10/23/2024 12:00 AM EDT To: [facility] Alessandra Guidance Adviser DM recheck. BP recheck documented in this encounter Plan of Treatment Upcoming Encounters Date Type Department Care Team (Late st Contact Info) Description 03/08/2025 1:00 PM EDT Support Visit [facility] - Diabetes and Nutrition Education [address] [place] [address] Javier Espinosa DO [address] [place] [address] Madelaine Schulz LD 03/27/2025 3:00 PM EDT Office Visit [facility]icians Internal Medicine - Family Medicine [address] [place] [address] Javier Espinosa DO [address] [place] [address] documented as of this encounter Visit Diagnoses Not on filedocumented in this encounter Additional Health Concerns Assessment Noted Time PHQ-9 Depression Total Score: 0 10/25/19 25 4:17 PM EDT documented as of this encounter Care Teams Credit Operations Specialist Relationship Specialty Start Date End Date Javier Espinosa DO [address] [place] [address] PCP - General Internal Medicine 04/13/24 documented as of this encounter
--- OUTSIDE RECORDS SUMMARY | 2025-02-05 09:29 | XMS_ITS | Encounter Summary ---
Author Organization [facility] [facility] tem Address [facility] [place][id number] [address] [place] [address] Care Team Providers Care Lard Renderer Name Role Phone Javier Espinosa DO Primary Care Provider [phone] Encounter Details Date Type Department Care Team (Late st Contact Info) Description 06/02/2023 Orders Only [facility] Internal Medicine - Family Medicine [address] [place] [address] Javier Espinosa DO [address] [place] [address] Chest pain, unspecified type (Primary Dx) Social History Tobacco [...] Description 03/08/2025 1:00 PM EDT Support Visit [facility] - Diabetes and Nutrition Education [address] [facility] [place] [address] Javier Espinosa, [address] [place] [address] Zeus MadelaineSONIA 03/27/2025 3:00 PM EDT Office Visit [facility] Internal Medicine - Family Medicine [address] [place] [address] Javier Espinosa DO [address] [place] [address] documented as of this encounter Visit Diagnoses Diagnosis Chest pain, unspecified type- Primary documented in this encounter Additional Health Concerns Infection Onset Date Last Indicated Resolved Time Respiratory Rule-Out 08/28/2024 08/28/2024 025 11:18 AM EDT Assessment Noted Time PHQ-9 Depression Total Score: 0 04/26/20 23 2:29 PM EST documented as of this encounter Care Teams Lard Renderer Relationship Specialty Start Date End Date Javier Espinosa DO [address] [place] [address] PCP - General Internal Medicine 04/13/24 documented as of this encounter
--- OUTSIDE RECORDS SUMMARY | 2025-02-05 09:29 | XMS_ITS | Encounter Summary ---
Author Organization [facility] [employer] [facility] tem Address [id number] [address] [place] [address] Care Team Providers Care Hat Forming Machine Feeder Name Role Phone Javier Espinosa DO Primary Care Provider [phone] Encounter Details Date Type Department Care Team (Late st Contact Info) Description 10/04/2023 Orders Only [facility] Internal Medicine - Family Medicine [address] [place] [address] Javier Espinosa DO [address] [place] [address] Laryngopharyngeal reflux (LPR) (Primary Dx) Social History Tobacco Use Types [...] Description 03/08/2025 1:00 PM EDT Support Visit [facility] - Diabetes and Nutrition Education [address] [facility] [place] [address] Javier Espinosa, [address] [place] [address] Zeus MadelaineSONIA 03/27/2025 3:00 PM EDT Office Visit [facility] Internal Medicine - Family Medicine [address] [place] [address] Javier Espinosa DO [address] [place] [address] documented as of this encounter Visit Diagnoses Diagnosis Laryngopharyngeal reflux (LPR)- Primary documented in this encounter Additional Health Concerns Infection Onset Date Last Indicated Resolved Time Respiratory Rule-Out 08/28/2024 08/28/2024 025 11:18 AM EDT Assessment Noted Time PHQ-9 Depression Total Score: 0 08/17/19 24 8:10 AM EST documented as of this encounter Care Teams Hat Forming Machine Feeder Relationship Specialty Start Date End Date Javier Espinosa DO [address] [place] [address] PCP - General Internal Medicine 04/13/24 documented as of this encounter
--- OUTSIDE RECORDS SUMMARY | 2025-02-05 09:29 | XMS_ITS | Encounter Summary ---
Author [facility] [facility] tem Address [id number] [address] [place] [address] Care Team Providers Care Product Grader Name Role Phone Javier Espinosa DO Primary Care Provider [phone] Encounter Details Date Type Department Care Team (Late st Contact Info) Description 07/21/2023 Orders Only [facility] Internal Medicine - Family Medicine [address] [place] [address] Javier Espinosa DO [address] [place] [address] Type 2 diabetes mellitus with diabetic polyneuropathy, without long-term current use of insulin ([facility]) Social History Tobacco Use Types Packs/Day Years Used Date Smoking Tobacco: Former Cigarettes 1.5 20 1 982 - 2002 Smokeless Tobacco: Never Comments:Quit over 20 years ago Alcohol Use Standard Drinks/Week Comments Not Currently 0 (1 standard drink = 0.6 oz pur e alcohol) PHQ-2 Answer Date Recorded Total Score 0 07/08/2023 Childcare Answer Date Recorded Childcare Unknown 11/30/2018 Employment Answer Date Recorded Employment Unknown 11/30/2018 Hunger Screening Answer Date Recorded Within the past 12 months we worried whether our food would run out before we got money to buy more. Never True 07/08/2023 Within the past 12 months th e food we bought just didn't last and we didn't have money to get more. Never True 07/08/2023 Purpose - Life Answer Date Recorded Purpose [...] Visit [facility] - Diabetes and Nutrition Education [address] [place] [address] Javier Espinosa, [address] [place] [address] Madelaine Schulz LD 03/27/2025 3:00 PM EDT Office Visit [facility] Internal Medicine - Family Medicine [address] [place] [address] Javier Espinosa DO [address] [place] [address] documented as of this encounter Visit Diagnoses Diagnosis Type 2 diabetes mellitus with diabetic polyneuropathy, without long-term current use of insulin ([facility]) documented in this encounter Additional Health Concerns Infection Onset Date Last Indicated Resolved Time Respiratory Rule-Out 08/28/2024 08/28/2024 025 11:18 AM EDT Assessment Noted Time PHQ-9 Depression Total Score: 0 07/08/19 24 7:59 AM EST documented as of this encounter Care Teams Product Grader Relationship Specialty Start Date End Date Javier Espinosa DO [address] [place] [address] PCP - General Internal Medicine 04/13/24 documented as of this encounter
--- OUTSIDE RECORDS SUMMARY | 2025-02-05 09:29 | XMS_ITS | Encounter Summary ---
Author Organization [facility] [employer] [facility] tem Address [id number] [address] [place] [address] Care Team Providers Care Wheel Worker Name Role Phone Javier Espinosa DO Primary Care Provider [phone] Encounter Details Date Type Department Care Team (Latest Contact Info) Description 01/31/2025 Travel Social History Tobacco Use Types Packs/Day Years [...] 1:00 PM EDT Support Visit [facility] - Diabetes and Nutrition Education [address] [place] [address] Javier Espinosa DO [address] [place] [address] Zeus MadelaineSONIA 03/27/2025 3:00 PM EDT Office Visit [facility] Internal Medicine - Family Medicine [address] [place] [address] Javier Espinosa DO [address] [place] [address] documented as of this encounter Visit Diagnoses Not on filedocumented in this encounter Additional Health Concerns Assessment Noted Time PHQ-9 Depression Total Score: 0 02/01/20 25 4:28 PM EDT documented as of this encounter Care Teams Wheel Worker Relationship Specialty Start Date End Date Javier Espinosa DO [address] [place] [address] PCP - General Internal Medicine 04/13/24 documented as of this encounter
--- OUTSIDE RECORDS SUMMARY | 2025-02-05 09:29 | XMS_ITS | Clinical Summary ---
Author Organization [employer] tem Address [id number] [address] [place] [address] Care Team Providers Care Environmental Inspector Name Role Phone Javier Espinosa Kelle MORA Primary Care Provider [phone] Allergies Active Allergy Reactions Criticality Noted Date Comments Pioglitazone 07/01/2022 Metaxalone 07/16/2018 Tizanidine 07/16/2018 Medications psyllium husk (METAMUCIL ORAL) in the morning. Active artificial tears,hypromellos e, (ISOPTO TEARS) 0.5 % ophthalmic solution Administer 1 drop to both eyes as needed (15). 15 mL 023 Active azelastine (ASTELIN) 137 mcg (0.1 %) nasal sprayIndications: Seasonal allergic rhinitis, unspecified trigger One spray in each nostril as needed for congestion or nose pain 30 mL 2 024 Active hydrocortisone (HYTONE) 1 % ointment 024 Active ibuprofen (MOTRIN) 800 mg tablet Take 1 tablet (800 mg total) by mouth every 6 (six) hours as needed for pain. 21 tablet 024 Active metroNIDAZOLE (MetrogeL) 1 % gelIndications:Ac ne rosacea Apply 1 Application topically in the morning. 60 g 024 Active levothyroxine (SYNTHROID, LEVOTHROID) 75 MCG tabletIndications :Hypothyroidism, unspecified type TAKE 1 TABLET BY MOUTH EVERY MORNING ON AN EMPTY STOMACH SIX DAYS PER WEEK 77 tablet 1 025 Active albuterol (PROVENTIL,VENTOL IN) 2.5 mg /3 mL (0.083 %) nebulizer solutionIndicatio ns:Acute exacerbation of chronic obstructive pulmonary disease (COPD) ([facility] [place] [place]) Inhale 3 mL (2.5 mg total) by nebulization 4 (four) times a day. 75 mL 1 025 Active cyanocobalamin 1000 MCG tabletIndications :B12 deficiency TAKE 1 TABLET BY MOUTH EVERY MORNING 90 tablet 1 025 Active fluticasone-umecl idin-vilanter (TRELEGY ELLIPTA) 200-62.5-25 mcg blister with deviceIndications :Chronic obstructive pulmonary disease, unspecified COPD type ([facility] [place] [place]) Inhale 1 puff in the morning. 180 each 1 025 Active Additional Information Patient not taking.Reason: Cost, Reported on 01/31/2025 FLUoxetine (PROzac) 40 mg capsuleIndication s:Obsessive-compu lsive disorder, unspecified type TAKE 1 CAPSULE BY MOUTH EVERY MORNING 90 capsule 025 Active pravastatin (PRAVACHOL) 40 mg tabletIndications :Hyperlipidemia, unspecified hyperlipidemia type TAKE 1 TABLET BY MOUTH EVERY MORNING 90 tablet 1 025 Active metFORMIN XR (GLUCOPHAGE XR) 500 mg 24 hr tabletIndications :Type 2 diabetes mellitus with diabetic polyneuropathy, without long-term current use of insulin ([facility] [place] [place]) TAKE 1 TABLET BY MOUTH EVERY MORNING AND 1 TABLET BEFORE BEDTIME 180 tablet 025 Active lisinopriL (PRINIVIL,ZESTRIL ) 10 mg tabletIndications :Essential hypertension TAKE 1 TABLET BY MOUTH EVERY MORNING 90 tablet 025 Active nystatin (MYCOSTATIN) powderIndications :Dea rash of groin Apply 1 Application topically in the morning and 1 Application at noon and 1 Application in the evening and 1 Application before bedtime. 30 g 025 Active omeprazole (PriLOSEC) 20 mg capsuleIndication s:Laryngopharynge al reflux (LPR) Take 1 capsule (20 mg total) by mouth every other day. 90 capsule 025 2024 Discontinued(T herapy completed) metFORMIN XR (GLUCOPHAGE XR) 500 mg 24 hr tabletIndications :Type 2 diabetes mellitus with diabetic polyneuropathy, without long-term current use of insulin ([facility] [place] [place]) TAKE 1 TABLET BY MOUTH EVERY MORNING AND TAKE 1 TABLET BEFORE BEDTIME 180 tablet 025 2024 Discontinued lisinopriL (PRINIVIL,ZESTRIL ) 10 mg tabletIndications :Essential hypertension TAKE 1 TABLET BY MOUTH EVERY MORNING 90 tablet 025 2024 Discontinued Active Problems Problem Noted Date Diagnosed Date B12 deficiency 05/10/2024 B12 neuropathy 07/08/2023 Type 2 diabetes mellitus wit h diabetic polyneuropathy, without long-term current use of insulin 07/08/2023 OCD (obsessive compulsive disorder) 03/30/2023 Mixed hyperlipidemia 08/29/2019 Resolved Problems Problem Noted Date Diagnosed Date Resolved Date Malignant neoplasm of colon, unspecified part of colon 08/17/2023 07/31/2024 Encounters Date Type Department Care Team Description 02/01/2025 Telephone [facility] - Diabetes [address] [facility] [address] [place] [phone] Ana Moeller CMA 01/31/2025 4:00 PM EDT Office Visit [facility] - Family Medicine [address] [place] [address] Javier Espinosa, Type 2 diabetes mellitus with diabetic polyneuropathy, without long-term current use of insulin ([facility]) (Primary Dx); Dea rash of groin; Laryngopharyngeal reflux (LPR) 01/31/2025 Travel 01/20/2025 Refill [facility] - [facility] Medicine [address] [place] [address] Javier Espinosa DO Essential hypertension 01/10/2025 Orders Only [facility] [address] [facility] [place] [address] Ref Prov, Not In System 01/09/2025 Orders Only [facility] - Family Medicine [address] [place] [address] Maria A Mitchell CMA Cervical spondylosis without myelopathy 01/08/2025 Refill [facility] [address] [facility] [facility] [place] [address] Javier Espinosa, Type 2 diabetes mellitus with diabetic polyneuropathy, without long-term current use of insulin ([facility]) 01/02/2025 Telephone [facility] [address] [place] [address] Dawood Hitchcock, DO 01/01/2025 11:59 PM EDT Anesthesia Event [facility] - Surgery [address] [place] [address] Carlos Reyes, DO 12/28/2024 11:00 AM EDT Office Visit [facility] General Surgery [address] [place] [address] Cathy Lopez, IESHA-FELTMAKER Rectal bleeding (Primary Dx); History of colon cancer 12/28/2024 Travel 12/18/2024 Refill [facility] - [facility] Medicine [address] [place] [address] Javier Espinosa, Hyperlipidemia, unspecified hyperlipidemia type 12/04/2024 Refill [facility] Internal Medicine - Family Medicine [address] [place] [address] Javier Espinosa, Obsessive-compulsive disorder, unspecified type 11/28/2024 10:00 AM EDT Clinical Support [facility] [address] [place] [address] Javier Espinosa DO Chronic obstructive pulmonary disease, unspecified COPD type ([facility]) (Primary Dx) 11/28/2024 Travel 11/21/2024 2:15 PM EDT Office Visit [facility] - [facility] Medicine [address] [place] [address] Javier Espinosa, Chronic obstructive pulmonary disease, unspecified COPD type ([facility]) (Primary Dx); Hypothyroidism, unspecified type; Type 2 diabetes mellitus with diabetic polyneuropathy, without long-term current use of insulin ([facility]); Essential hypertension 11/21/2024 Travel 11/21/2024 Refill [facility] - [facility] Medicine [address] [place] [address] Javier Espinosa, B12 deficiency 11/07/2024 Orders Only [facility] - Family Medicine [address] [place] [phone] Javier Espinosa, Cervical spondylosis without myelopathy (Primary Dx) 11/06/2024 Telephone [facility] - [facility] Medicine [address] [place] [phone] Elda Hunt CMA from Last 3 Months Immunizations Immunization Administration Dates Next Due Hep A / Hep B 08/21/2020,07/04/2020 Influenza (IM) Preservative Free 05/06/2017,03/23 Influenza, Injectable, quadrivalent (PF) 021,04/06/2019 Tdap 06/10/2010 Zoster Vaccine Recombinant 11/22/2020,07/04/2020 Family History Medical History Relation Name Comments Hypertension Brother Heart disease Father Cancer Mother Atrial fibrillation Sister Heart disease Sister Hypertension Sister Relation Name Status Comments Brother Father Mother Sister Social History Tobacco Use Types Packs/Day Years Used Date Smoking Tobacco: Former Cigarettes 1.5 20 1 982 - 2002 Smokeless Tobacco: Never Tobacco Cessation:Counseling Given: Not Answered Comments:Quit over 20 years ago Alcohol Use [...] Mass Index 28.88 01/31/2025 4:28 PM EDT Plan of Treatment Upcoming Encounters Date Type Department Care Team (Late st Contact Info) Description 03/08/2025 1:00 PM EDT Support Visit [facility] - Diabetes and Nutrition Education [address] [place] [address] Javier Espinosa, DO [address] [place] [address] Madelaine Schulz LD 03/27/2025 3:00 PM EDT Office Visit [facility] Internal Medicine - Family Medicine [address] [place] [address] Javier Espinosa, DO [address] [place] [address] Health Maintenance Due Date Last Done Comments Diabetic Ophthalmology Exam 1955 Medicare Annual Wellness Visit 1955 Adult BMI Follow Up Plan 1975 DTaP,Tdap and Td Vaccines (2 - Td or Tdap) 06/10/2020 06/10/2010 Abdominal Aortic Aneurysm (A AA) Screen 2022 Diabetic Foot Exam 12/26/2024 12/27/2023 Influenza Vaccine 02/19/2025 04/29/2021, , 05/06/2017, Additional history exists Statin Use: Diabetic 12/18/2025 12/18/2024 Adult BMI Screening 01/31/2026 01/31/2025 Depression Screening 01/31/2026 01/31/2025 Fall Risk Screening 01/31/2026 01/31/2025 Tobacco Screening 01/31/2026 01/31/2025 Colonoscopy 09/29/2027 09/28/2022, 09/19, 05/18/2022, Additional history exists Zoster (Shingles) Vaccine Completed 11/22/2020, Medical Devices Not on file Procedures Procedure Name Priority Date/Time Associated Diagnosis Comments AMB REFERRAL TO PAIN MANAGEMENT Routine 01/09/2025 4:51 PM EDT Cervical spondylosis without myelopathy XR SPINE CERVICAL 3 VWS OR LESS Routine 11/29/2024 10:58 AM EDT XR LUMBAR SPINE AP, LATERAL, FLEXION AND EXTENSION ONLY Routine 11/29/2024 10:57 AM EDT XR SPINE THORACIC 2 VWS Routine 11/29/2024 10:53 AM EDT THYROID PROFILE INCLUDES TSH FT4 Routine 11/21/2024 2:53 PM EDT Hypothyroidism, unspecified type HEMOGLOBIN A1C Routine 11/21/2024 2:53 PM EDT Type 2 diabetes mellitus with diabetic polyneuropathy, without long-term current use of insulin ([facility] [place] [place]) COMPREHENSIVE METABOLIC PANEL Routine 11/21/2024 2:53 PM EDT Type 2 diabetes mellitus with diabetic polyneuropathy, without long-term current use of insulin ([facility] [place] [place]) LIPID PROFILE Routine 11/21/2024 2:53 PM EDT Type 2 diabetes mellitus with diabetic polyneuropathy, without long-term current use of insulin ([facility] [place] [place]) COLONOSCOPY 09/28/2022 9:52 AM EDT from Last 3 Months or Most Recently Relevant to Health Maintenance Results * Ambulatory referral to Pain Management ([facility]) (01/09/2025 4:51 PM EDT) us Javier Espinosa DO OUTPATIENT REFERRAL ORDERABLES F inal Result MANUALLY TRANSCRIBED RESULTS * X-ray spine cervical 3 views or [...] DIAGNOSTIC IMAGING OR DERABLES Final Result * Thyroid profile includes TSH FT4 (11/21/2024 2:53 PM EDT) [facility] Signature FREE T4 0.77 0.61 - 1.60 ng/dL 11/21/2024 6:48 PM EDT [facility] TSH 3.02 0.49 - 4.67 uIU/mL 11/21/2024 6:48 PM EDT [facility] Blood Venous blood / Unknown 11/21/2024 2:53 PM EDT 11/21/2024 2:53 PM EDT us Javier Espinosa DO LAB BLOOD ORDERABLES Final Resul t [facility] [address] [place] [address], * (ABNORMAL) Hemoglobin A1c (11/21/2024 2:53 PM EDT) HEMOGLOBIN A1C 6.6(H) 4.4 - 5.6 % 11/21/2024 6:52 PM EDT [facility] Comment: ADA Guidelines Result HgbA1c Normal : less than 5.7 % Prediabetes : 5.7 % to 6.4 % Diabetes : > 6.4 % Use with caution in patients with abnormal hemoglobin variants as the half-life of red blood cells and in vivo glycation rates are affected. EST. AVERAGE GLUCOSE 143 mg/dL 11/21/2024 6:52 PM EDT [facility] Blood Venous blood / Unknown 11/21/2024 2:53 PM EDT 11/21/2024 2:53 PM EDT Javier Espinosa DO LAB BLOOD ORDERABLES Final Resul t [facility] [address] [place] [address], * (ABNORMAL) Lipid profile (11/21/2024 2:53 PM EDT) CHOLESTEROL 159 150 - 200 mg/dL 11/21/2024 6:39 PM EDT [facility] TRIGLYCERIDE 233(H) 27 - 150 mg/dL 11/21/2024 6:39 PM EDT [facility] HDL CHOLESTEROL 51 >39 mg/dL 6:39 PM EDT [facility] Comment: HDL <40 mg/dL - High Risk HDL > or = 40mg/dL- Desirable HDL >60 mg/dL - Negative Risk LDL (CALC) 61 <130 mg/dL 11/21/2024 6:39 PM EDT [facility] Comment: LDL <100 mg/dL - Desirable LDL >160 mg/dL - High Risk CHOLESTEROL:HDL 3.1 1.0 - 5.0 6:39 PM EDT [facility] VERY LOW LIPOPROTEIN 47(H) 0 - 30 mg/dL 11/21/2024 6:39 PM EDT [facility] Blood Venous blood / Unknown 11/21/2024 2:53 PM EDT 11/21/2024 2:53 PM EDT Javier Espinosa DO LAB BLOOD ORDERABLES Final Resul t [facility] [address] [place] [address], * (ABNORMAL) Comprehensive metabolic panel (11/21/2024 2:53 PM EDT) SODIUM 139 134 - 146 mmol/L 11/21/2024 6:39 PM EDT [facility] POTASSIUM 4.6 3.5 - 5.0 mmol/L 11/21/2024 6:39 PM EDT [facility] CHLORIDE 106 98 - 109 mmol/L 11/21/2024 6:39 PM EDT [facility] CARBON DIOXIDE 23 22 - 32 mmol/L 11/21/2024 6:39 PM EDT [facility] ANION GAP 10 5 - 15 mmol/L 11/21/2024 6:39 PM EDT [facility] BLOOD UREA NITROGEN 18 5 - 27 mg/dL 11/21/2024 6:39 PM EDT [facility] CREATININE 1.12 0.60 - 1.30 mg/dL 11/21/2024 6:39 PM EDT [facility] Comment:METHOD TRACEABLE TO IDMS STANDARD GLUCOSE 112(H) 65 - 99 mg/dL 11/21/2024 6:39 PM EDT [facility] CALCIUM 9.7 8.5 - 10.5 mg/dL 11/21/2024 6:39 PM EDT [facility] TOTAL PROTEIN 7.0 6.0 - 8.0 g/dL 11/21/2024 6:39 PM EDT [facility] ALBUMIN 4.5 3.2 - 5.3 g/dL 11/21/2024 6:39 PM EDT [facility] ALKALINE PHOSPHATASE 76 39 - 130 U/L 11/21/2024 6:39 PM EDT [facility] AST 18 <=41 U/L 11/21/2024 6:39 PM EDT [facility] ALT 14 <=40 U/L 11/21/2024 6:39 PM EDT [facility] BILIRUBIN,TOTAL 0.6 0.3 - 1.2 mg/dL 11/21/2024 6:39 PM EDT [facility] EGFR Non-Race Dependent 72 >=60 ml/min/1.7 3sq.m 11/21/2024 6:39 PM EDT [facility] Comment: Reported eGFR is based on the CKD-EPI 2020 equation that does not use a race coefficient. Blood Venous blood / Unknown 11/21/2024 2:53 PM EDT 11/21/2024 2:53 PM EDT Javier Espinosa DO LAB BLOOD ORDERABLES Final Resul t [facility] [address] [place] [address], * Colonoscopy (09/28/2022 9:52 AM EDT) 09/28/2022 9:52 AM EDT Narrative PM CARDIOVASCULAR - 09/28/2022 10:13 AM EDT [facility] Patient Name: Onesimo Caldwell Procedure Date No Time: 09/28/2022 CSN : [id number] Date of : 1955 Admit Type: Outpatient Age: 67 Room: [place] [address] Gender: Male Note Status: Finalized Attending MD: Dawood Hitchcock DO, Procedure: Colonoscopy Indications: Screening for colorectal malignant neoplasm, Personal history of malignant neoplasm of the colon Providers: Dawood Hitchcock DO Referring MD: Dawood Hitchcock DO Medicines: Propofol per Anesthesia Complications: No immediate complications. Procedure: After I obtained informed consent, the scope was passed under direct vision. Throughout the procedure, the patient's blood pressure, pulse, and oxygen saturations were monitored continuously. The [employer] [id number] #[id number] ADULT COLONOSCOPE was introduced through the anus and advanced to the ileocolonic anastomosis. The colonoscopy was performed without difficulty. The patient tolerated the procedure well. The quality of the bowel preparation was adequate to identify polyps greater than 5 mm in size. Findings: The perianal and digital rectal examinations were normal. A 5 mm polyp was found in the mid rectum. The polyp was sessile. The polyp was removed with a hot snare. Resection and retrieval were complete. The exam was otherwise without abnormality on direct and retroflexion views. Estimated Blood Loss: Estimated blood loss: none. Impression: - One 5 mm polyp in the mid rectum, removed with a hot snare. Resected and retrieved. - The examination was otherwise normal on direct and retroflexion views. Recommendation: - Discharge patient to home. - Patient has a contact number available for emergencies. The signs and symptoms of potential delayed complications were discussed with the patient. Return to normal activities tomorrow. Written discharge instructions were provided to the patient. - Repeat colonoscopy in 5 years for surveillance based on pathology results. - Return to my office PRN. Procedure Code(s): --- Professional --- 72345, Colonoscopy, flexible; with removal of tumor(s), polyp(s), or other lesion(s) by snare technique Diagnosis Code(s): --- Professional --- Z12.11, Encounter for screening for malignant neoplasm of colon D12.8, Benign neoplasm of rectum Z85.038, Personal history of other malignant neoplasm of large intestine CPT copyright 2021 [employer]. All rights reserved. The codes documented in this report are preliminary and upon irrigation service technician review may be revised to meet current compliance requirements. DO Dawood Reis DO 09/28/2022 10:13:13 AM Number of Addenda: 0 Note Initiated On: 09/28/2022 9:52 AM Procedure Note Dawood Hitchcock DO - 09/28/2022 [facility] Patient Name: Onesimo Caldwell Procedure Date No Time: 09/28/2022 CSN : [id number] Date of : 1955 Admit Type: Outpatient Age: 67 Room: [place] [address] Gender: Male Note Status: Finalized Attending MD: Dawood Hitchcock DO, Procedure: Colonoscopy Indications: Screening for colorectal malignant neoplasm,Personal history of malignant neoplasm of the colon Providers: Dawood Hitchcock DO Referring MD: Dawood Hitchcock DO Medicines: Propofol per Anesthesia Complications: No immediate complications. Procedure: After I obtained informed consent, the scope was passed under direct vision. Throughout theprocedure, the patient's blood pressure, pulse, and oxygen saturations were monitored continuously. [employer] [id number] #[id number] ADULT COLONOSCOPE was introduced through the anus and advanced to the ileocolonic anastomosis. The colonoscopy was performed without difficulty. The patient tolerated the procedurewell. The quality of the bowel preparation was adequateto identify polyps greater than 5 mm in size. Findings: The perianal and digital rectal examinations were normal. A 5 mm polyp was found in the mid rectum. The polyp was sessile. The polyp was removed with a hot snare. Resection and retrieval were complete. The exam was otherwise without abnormality on direct and retroflexion views. Estimated Blood Loss: Estimated blood loss: none. Impression: - One 5 mm polyp in the mid rectum, removed with ahot snare. Resected and retrieved. - The examination was otherwise normal on directand retroflexion views. Recommendation: - Discharge patient to home. - Patient has a contact number available for emergencies. The signs and symptoms of potential delayed complications were discussed with thepatient. Return to normal activities tomorrow. Written discharge instructions were provided to thepatient. - Repeat colonoscopy in 5 years for surveillancebased on pathology results. - Return to my office PRN. Procedure Code(s): --- Professional --- 25237, Colonoscopy, flexible; with removal of tumor(s), polyp(s), or other lesion(s) by snare technique Diagnosis Code(s): --- Professional --- Z12.11, Encounter for screening for malignant neoplasm of colon D12.8, Benign neoplasm of rectum Z85.038, Personal history of other malignant neoplasm of largeintestine CPT copyright 2021 [employer]. All rights reserved. The codes documented in this report are preliminary and upon irrigation service technician reviewmay be revised to meet current compliance requirements. DO Dawood Reis DO 09/28/2022 10:13:13 AM Number of Addenda: 0 Note Initiated On: 09/28/2022 9:52 AM us Dawood Hitchcock DO GI PROCEDURE ORDERABLES Fin al Result PM CARDIOVASCULAR from Last 3 Months or Most Recently Relevant to Health Maintenance Insurance MEDICARE [facility] Care Teams Environmental Inspector Relationship Specialty Start Date End Date Javier Espinosa DO [address] [place] [address] PCP - General Internal Medicine 04/13/24
--- OUTSIDE RECORDS SUMMARY | 2025-02-05 09:29 | XMS_ITS | Encounter Summary ---
Author Organization [facility] [employer] [facility] tem Address [id number] [address] [place] [address] Care Team Providers Care Jacquard Lace Weaver Name Role Phone Javier Espinosa DO Primary Care Provider [phone] Encounter Details Date Type Department Care Team (Late Contact Info) Description 03/30/2023 Orders Only [facility] Internal Medicine - Family Medicine [address] [place] [phone] Javier Esipnosa DO [address] [place] [address] B12 deficiency (Primary Dx) Social History Tobacco Use Types Packs/Day Years Used Date Smoking Tobacco: Former Cigarettes 1.5 20 1 982 - 2002 Smokeless Tobacco: Never Comments:Quit over 20 years ago Alcohol Use Standard Drinks/Week Comments Not Currently 0 (1 standard drink = 0.6 oz pur e alcohol) Childcare Answer Date Recorded Childcare Unknown 11/30/2018 Employment Answer Date Recorded Employment Unknown 11/30/2018 Purpose - Life Answer Date Recorded Purpose [...] Description 03/08/2025 1:00 PM EDT Support Visit [facility] - Diabetes and Nutrition Education [address] [place] [address] Javier Espinosa DO [address] [place] [address] Madelaine SchulzSONIA 03/27/2025 3:00 PM EDT Office Visit [facility] - Family Medicine [address] [place] [address] Javier Espinosa DO [address] [place] [address] documented as of this encounter Visit Diagnoses Diagnosis B12 deficiency- Primary documented in this encounter Additional Health Concerns Infection Onset Date Last Indicated Resolved Time Respiratory Rule-Out 08/28/2024 08/28/2024 025 11:18 AM EDT documented as of this encounter Care Teams Jacquard Lace Weaver Relationship Specialty Start Date End Date Javier Espinosa DO [address] [place] [address] PCP - General Internal Medicine 04/13/24 documented as of this encounter
--- OUTSIDE RECORDS SUMMARY | 2025-02-05 09:29 | XMS_ITS | Encounter Summary ---
Author Organization [facility] tem Address [facility]-[id number] [address] [place] [address] Care Team Providers Care Clay Machine Operator Name Role Phone Javier Espinosa DO Primary Care Provider [phone] Encounter Details Date Type Department Care Team (Late Contact Info) Description 10/20/2024 Orders Only [facility] Internal Medicine - Family Medicine [address] [place] [address] Ref Prov, [place] [address] Social History Tobacco Use Types Packs/Day Years [...] Description 03/08/2025 1:00 PM EDT Support Visit [facility] - Diabetes and Nutrition Education [address] [facility] [place] [address] Javier Espinosa DO [address] [place] [address] Zeus MadelaineSONIA 03/27/2025 3:00 PM EDT Office Visit [facility] Internal Medicine - Family Medicine [address] [place] [address] Javier Espinosa DO [address] [place], [place] [id number] documented as of this encounter Procedures Procedure Name Priority Date/Time Associated Diagnosis Comments [id number] Routine 10/19/2024 6:55 AM EDT documented in this encounter Results * [id number] (10/19/2024 6:55 AM EDT) Blood Venous blood / Unknown us Not In System Ref Prov LAB BLOOD ORDERABLES Padma farzad Result MANUALLY TRANSCRIBED RESULTS documented in this encounter Visit Diagnoses Not on filedocumented in this encounter Additional Health Concerns Assessment Noted Time PHQ-9 Depression Total Score: 0 10/20/19 25 4:33 PM EDT documented as of this encounter Care Teams Clay Machine Operator Relationship Specialty Start Date End Date Javier Espinosa DO [address] [place] [address] PCP - General Internal Medicine 04/13/24 documented as of this encounter
--- OUTSIDE RECORDS SUMMARY | 2025-02-05 09:29 | XMS_ITS | Encounter Summary ---
Author [facility] Address [id number] [address] [place] [address] Care Team Providers Care Chief Of Harbor Patrol Name Role Phone Javier Espinosa DO Primary Care Provider [phone] Reason for Visit * Reason Comments Med Refill Encounter Details Date Type Department Care Team (Late st Contact Info) Description 09/12/2023 Refill [facility] Internal Medicine - Family Medicine [address] [place] [address] Javier Espinosa DO [address] [place] [address] Laryngopharyngeal reflux (LPR) Social History Tobacco Use [...] Telephone Encounter - Javier Espinosa DO - 09/12/2023 6:57 AM EDT Discontinued documented in this encounter Plan of Treatment Upcoming Encounters Date Type Department Care Team (Late st Contact Info) Description 03/08/2025 1:00 PM EDT Support Visit [facility] - Diabetes and Nutrition Education [address] [place] [address] Javier Espinosa DO [address] [facility] [place] [address] Madelaine Schulz LD 03/27/2025 3:00 PM EDT Office Visit [facility] Internal Medicine - Family Medicine [address] [place] [address] Javier Espinosa DO [address] [place] [address] documented as of this encounter Visit Diagnoses Diagnosis Laryngopharyngeal reflux (LPR) documented in this encounter Additional Health Concerns Infection Onset Date Last Indicated Resolved Time Respiratory Rule-Out 08/28/2024 08/28/2024 025 11:18 AM EDT Assessment Noted Time PHQ-9 Depression Total Score: 0 08/17/19 8:10 AM EST documented as of this encounter Care Teams Chief Of Harbor Patrol Relationship Specialty Start Date End Date Jaiver Espinosa DO [address] [facility] [place] [address] PCP - General Internal Medicine 04/13/24 documented as of this encounter
--- OUTSIDE RECORDS SUMMARY | 2025-02-05 09:29 | XMS_ITS | Encounter Summary ---
Author Organization [facility] [employer] [facility] tem Address [facility] [id number] [address] [place] [address] Care Team Providers Care Lead Presser Name Role Phone Javier Espinosa DO Primary Care Provider [phone] Encounter Details Date Type Department Care Team (Late Contact Info) Description 01/09/2025 Orders Only [facility] Internal Medicine - Family Medicine [address] [facility] [place] [place] [id number] Maria A Mitchell CMA Cervical spondylosis without myelopathy Social History Tobacco Use Types Packs/Day Years [...] Description 03/08/2025 1:00 PM EDT Support Visit [facility] - Diabetes and Nutrition Education [address] [facility] [place] [address] Javier Espinosa DO [address] [facility] [place] [address] Zeus MadelaineSONIA 03/27/2025 3:00 PM EDT Office Visit [facility] Internal Medicine - Family Medicine [address] [place] [address] Javier Espinosa DO [address] [place] [address] documented as of this encounter Procedures Procedure Name Priority Date/Time Associated Diagnosis Comments AMB REFERRAL TO PAIN MANAGEMENT Routine 01/09/2025 4:51 PM EDT Cervical spondylosis without myelopathy documented in this encounter Results * Ambulatory referral to Pain Management ([facility]) (01/09/2025 4:51 PM EDT) Javier Espinosa DO OUTPATIENT REFERRAL ORDERABLES F inal Result MANUALLY TRANSCRIBED RESULTS documented in this encounter Visit Diagnoses Diagnosis Cervical spondylosis without myelopathy documented in this encounter Additional Health Concerns Assessment Noted Time PHQ-9 Depression Total Score: 0 11/22/19 25 2:24 PM EDT documented as of this encounter Care Teams Lead Presser Relationship Specialty Start Date End Date Javier Espinosa DO [address] [facility] [place] [address] PCP - General Internal Medicine 04/13/24 documented as of this encounter
--- OUTSIDE RECORDS SUMMARY | 2025-02-05 09:29 | XMS_ITS | Encounter Summary ---
Author Organization [facility] Address [id number] [address] [place] [address] Care Team Providers Care Warrant Clerk Name Role Phone Javier Espinosa DO Primary Care Provider Reason for Visit * Reason Comments Med Refill Encounter Details Date Type Department Care Team (Late st Contact Info) Description 11/22/2023 Refill [facility] Internal Medicine - Family Medicine [address] [place] [address] Javier Espinosa DO [address] [place] [address] Laryngopharyngeal reflux (LPR) Social History Tobacco Use Types Packs/Day Years Used Date Smoking Tobacco: Former Cigarettes 1.5 20 1 982 - 2002 Smokeless Tobacco: Never Comments:Quit over 20 years ago Alcohol Use Standard Drinks/Week Comments Not Currently 0 (1 standard drink = 0.6 oz pur e alcohol) PHQ-2 Answer Date Recorded Total Score 0 10/19/2023 Childcare Answer Date Recorded Childcare Unknown 11/30/2018 Employment Answer Date Recorded Employment Unknown 11/30/2018 Hunger Screening Answer Date Recorded Within the past 12 months we worried whether our food would run out before we got money to buy more. Never True 10/19/2023 Within the past 12 months th e food we bought just didn't last and we didn't have money to get more. Never True 10/19/2023 Purpose - Life Answer Date Recorded Purpose and direction in life Unknown Sex and Gender Information Value Date Recorded Sex Assigned at Not on file Legal Sex Male 11:29 AM EDT Gender Identity Not on file Sexual Orientation Not on file documented as of this encounter Miscellaneous Notes * Telephone Encounter - Javier Espinosa DO - 11/22/2023 6:10 PM EDT Requested refill too early documented in this encounter Plan of Treatment Upcoming Encounters Date Type Department Care Team (Late st Contact Info) Description 03/08/2025 1:00 PM EDT Support Visit [facility] - Diabetes and Nutrition Education [address] [place] [address] Javier Espinosa DO [address] [place] [address] Madelaine Schulz LD 03/27/2025 3:00 PM EDT Office Visit [facility] Internal Medicine - Family Medicine [address] [place] [address] Javier Espinosa DO [address] [place] [address] documented as of this encounter Visit Diagnoses Diagnosis Laryngopharyngeal reflux (LPR) documented in this encounter Additional Health Concerns Infection Onset Date Last Indicated Resolved Time Respiratory Rule-Out 08/28/2024 08/28/2024 025 11:18 AM EDT Assessment Noted Time PHQ-9 Depression Total Score: 0 10/19/19 24 7:55 AM EDT documented as of this encounter Care Teams Warrant Clerk Relationship Specialty Start Date End Date Javier Espinosa DO [address] [facility] [place] [address] PCP - General Internal Medicine 04/13/24 documented as of this encounter
--- OUTSIDE RECORDS SUMMARY | 2025-02-05 09:29 | XMS_ITS | Encounter Summary ---
Author Organization [facility] Address [facility] [place] [id number] Care Team Providers Care Aerospace Control And Warning Systems Name Role Phone Lai Pena DO Primary Care Provider [phone] Mann Baker MD Primary Care Provider [phone] Source Comments In the event this information is protected by the Federal Confidentiality of Alcohol and Drug AbusePatient Records regulations: The Federal rules restrict any use of the information to criminally investigate or prosecute any alcohol or drug abuse patient.[facility] Encounter Details Date Type Department Care Team (Latest Contact Info) Description 02/16/2018 H&P External-NonCCF Provider, External, PA-C Do not enter address information under generic External Provider. Social History Tobacco Use Types Packs/Day Years Used Date Smoking Tobacco: Former Cigarettes 1.5 31 0 06/21/1974 - 06/21/2005 Alcohol Use Standard Drinks/Week Comments No 0 (1 standard drink = 0.6 oz pur e alcohol) Sex and Gender Information Value Date Recorded Sex Assigned at Not on file Legal Sex Male 9:14 AM EDT Gender Identity Not on file Sexual Orientation Not on file documented as of this encounter Functional Status * Are you deaf or do you have serious difficulty hearing? Answer Date of Assessment Author No 02/20/2014 7:00 AM EDT Augie Toribio LPN * Are you blind or do you have serious difficulty seeing, even when wearing glasses? Answer Date of Assessment Author No 02/20/2014 7:00 AM BRENAugie Arnold CIRCULATION LIBRARIAN * Do you have serious difficulty walking or climbing stairs? Answer Date of Assessment Author Yes 02/20/2014 7:00 AM Augie Mullen LPN * Do you have difficulty dressing or bathing? Answer Date of Assessment Author 02/20/2014 7:00 AM Augie Mullen LPN * Because of a physical, mental, or emotional condition, do you have difficulty doing errands alone such as visiting a doctor's office or shopping? Answer Date of Assessment Author No 02/20/2014 7:00 AM BRENAugie Arnold LPN documented as of this encounter Mental Status * Because of a physical, mental, or emotional condition, do you have serious difficulty concentrating, remembering, or making decisions? Answer Entry Date Author No 02/20/2014 7:00 AM Augie Mullen LPN documented in this encounter Plan of Treatment Not on file documented as of this encounter Visit Diagnoses Not on filedocumented in this encounter Care Teams Aerospace Control And Warning Systems Relationship Specialty Start Date End Date Lai Pena DO PCP - General Family Medicine 02/01/14 03/23/18 Mann Baker MD [address] [place] [address] PCP - General Family Medicine 03/24/18 documented as of this encounter
--- OUTSIDE RECORDS SUMMARY | 2025-02-05 09:29 | XMS_ITS | Encounter Summary ---
Author Organization [facility] tem Address [facility]-[id number] [address] [place] [address] Care Team Providers Care Travel Counselor Automobile Club Name Role Phone Javier Espinosa DO Primary Care Provider [phone] Encounter Details Date Type Department Care Team (Late st Contact Info) Description 06/16/2023 Orders Only [facility] Internal Medicine - Family Medicine [address] [place] [address] Javier Espinosa DO [address] [place] [address] Laryngopharyngeal reflux (LPR) Social History Tobacco Use [...] Description 03/08/2025 1:00 PM EDT Support Visit [facility] - Diabetes and Nutrition Education [address] [place] [address] Javier Espinosa, DO [address] [place] [address] Madelaine Schulz LD 03/27/2025 3:00 PM EDT Office Visit [facility] Internal Medicine - Family Medicine [address] [place] [address] Javier Espinosa DO [address] [place] [address] documented as of this encounter Visit Diagnoses Diagnosis Laryngopharyngeal reflux (LPR) documented in this encounter Additional Health Concerns Infection Onset Date Last Indicated Resolved Time Respiratory Rule-Out 08/28/2024 08/28/2024 025 11:18 AM EDT Assessment Noted Time PHQ-9 Depression Total Score: 0 04/26/20 23 2:29 PM EST documented as of this encounter Care Teams Travel Counselor Automobile Club Relationship Specialty Start Date End Date Javier Espinosa DO [address] [place] [address] PCP - General Internal Medicine 04/13/24 documented as of this encounter
--- OUTSIDE RECORDS SUMMARY | 2025-02-05 09:29 | XMS_ITS | Encounter Summary ---
Author Organization [facility] tem Address [facility] [place]-[id number] [address] [place] [address] Care Team Providers Care Human Factors Advisor Lead Name Role Phone Javier Espinosa DO Primary Care Provider [phone] Encounter Details Date Type Department Care Team (Late Contact Info) Description 11/01/2024 Orders Only [facility] Internal Medicine - Family Medicine [address] [place] [address] Ref Prov, [place] [address] Social History Tobacco Use Types Packs/Day Years [...] 1:00 PM EDT Support Visit [facility] - Diabetes and Nutrition Education [address] [place] [address] Javier Espinosa, [address] [place] [address] Zeus MadelaineSONIA 03/27/2025 3:00 PM EDT Office Visit [facility] Internal Medicine - Family Medicine [address] [place] [address] Javier Espinosa, DO [address] [place], [place] [address] documented as of this encounter Procedures Procedure Name Priority Date/Time Associated Diagnosis Comments [id number] Routine 11/01/2024 4 :15 PM EDT documented in this encounter Results * [id number] (11/01/2024 4:15 PM EDT) Blood Venous blood / Unknown us Not In System Ref Prov LAB BLOOD ORDERABLES Padma l Result MANUALLY TRANSCRIBED RESULTS documented in this encounter Visit Diagnoses Not on filedocumented in this encounter Additional Health Concerns Assessment Noted Time PHQ-9 Depression Total Score: 0 10/25/19 25 4:17 PM EDT documented as of this encounter Care Teams Human Factors Advisor Lead Relationship Specialty Start Date End Date Javier Espinosa DO [address] [place] [address] PCP - General Internal Medicine 04/13/24 documented as of this encounter
--- OUTSIDE RECORDS SUMMARY | 2025-02-05 09:29 | XMS_ITS | Encounter Summary ---
Author Organization [employer] [facility] tem Address [facility]-[id number] [address] [place] [address] Care Team Providers Care Crib Pad Maker Name Role Phone Jesús Javier Nina DO Primary Care Provider [phone] Encounter Details Date Type Department Care Team (Late st Contact Info) Description 01/02/2025 Telephone [facility] General Surgery [address] [place] [address] Dawood Hitchcock DO [address] [place], [place] [address] Social History Tobacco Use Types Packs/Day Years [...] encounter Miscellaneous Notes * Telephone Encounter - Cindy Ponce - 01/02/2025 1:20 PM EDT Kerwin came into the office to cancel his colonoscopy with Dr Hitchcock for 12/12/2024, he states that hewill call the office back later to reschedule. * Telephone Encounter - CARLITOS Cruz - 01/02/2025 1:20 PM EDT [facility] surgery coordinator was called and the patient's surgery was cancelled. documented in this encounter Plan of Treatment Upcoming Encounters Date Type Department Care Team (Late st Contact Info) Description 03/08/2025 1:00 PM EDT Support Visit [facility] - Diabetes and Nutrition Education [address] [place] [address] Javier Espinosa DO [address] [place] [address] Madelaine Schulz LD 03/27/2025 3:00 PM EDT Office Visit [facility] Internal Medicine - Family Medicine [address] [place] [address] Javier Espinosa DO [address] [place] [address] documented as of this encounter Visit Diagnoses Not on filedocumented in this encounter Additional Health Concerns Assessment Noted Time PHQ-9 Depression Total Score: 0 11/22/19 25 2:24 PM EDT documented as of this encounter Care Teams Crib Pad Maker Relationship Specialty Start Date End Date Javier Espinosa DO [address] [place] [address] PCP - General Internal Medicine 04/13/24 documented as of this encounter
--- OUTSIDE RECORDS SUMMARY | 2025-02-05 09:29 | XMS_ITS | Encounter Summary ---
Author Organization [employer] tem Address [facility] [place][id number] [address] [place] [address] Care Team Providers Care Paper And Pulp Mill Worker Name Role Phone Javier Espinosa DO Primary Care Provider [phone] Reason for Referral * Consultation (Routine) - Pending Review Specialty Diagnoses / Procedures Referred By Contac t Referred To Contact Endocrinology, Diabetes & Metabolism Diagnoses Type 2 diabetes mellitus with diabetic polyneuropathy, without long-term current use of insulin ([facility]) Javier Espinosa DO [address] [place] [address] Phone: tel: fax: [facility] - Diabetes and Nutrition Education [address] [place] [address] Phone: tel: fax: Referral ID Status Reason Start Date Expiration Date Visits Requested Visits Authorized [id number] Pending Review Specialty Services Required 02/01/2025 02/01/2026 1 1 Encounter Details Date Type Department Care Team (Late st Contact Info) Description 02/01/2025 Telephone [facility] - Diabetes [address] [phone] Ana Moeller CMA Social History Tobacco Use Types Packs/Day [...] encounter Miscellaneous Notes * Telephone Encounter - Ana Moeller CMA - 02/01/2025 7:31 AM EDT We received a referral for education on Onesimo Jordan Caldwell 1955. However per CMS Guidelines we need to have the services requested marked as such on referral. Please see pended order and sign if you are agreeable. Thank you [facility] Diabetes and Nutrition Education * Telephone Encounter - Javier Espinosa DO - 02/01/2025 7:31 AM EDT Message noted. New diet education were signed documented in this encounter Plan of Treatment Upcoming Encounters Date Type Department Care Team (Late st Contact Info) Description 03/08/2025 1:00 PM EDT Support Visit [facility] - Diabetes and Nutrition Education [address] [place] [address] Javier Espinosa DO [address] [place] [address] Madelaine Schulz LD 03/27/2025 3:00 PM EDT Office Visit [facility] Internal Medicine - Family Medicine [address] [place] [address] Javier Espinosa DO [address] [place] [address] Scheduled Referrals Name Type Priority Associated Diagnoses Order Schedule Ambulatory referral to Diabetic Education Outpatient Referral Routine Type 2 diabetes mellitus with diabetic polyneuropathy, without long-term current use of insulin ([facility]) 1 Occurrences starting 02/01/2025 until 02/01/2026 documented as of this encounter Visit Diagnoses Diagnosis Type 2 diabetes mellitus with diabetic polyneuropathy, without long-term current use of insulin ([facility])- Primary documented in this encounter Additional Health Concerns Assessment Noted Time PHQ-9 Depression Total Score: 0 02/01/20 25 4:28 PM EDT documented as of this encounter Care Teams Paper And Pulp Mill Worker Relationship Specialty Start Date End Date Javier Espinosa DO [address] [place] [address] PCP - General Internal Medicine 04/13/24 documented as of this encounter
[2025-02-05 10:10] VITALS: BP 121/72; PULSE 54; TEMP 36.2; O2SAT 99
[2025-02-05] MEDS: BUPIVACAINE HCL 0.25% PF 25 MG/10 ML VIAL INJ (10:54)
[2025-02-05] MEDS: LIDOCAINE HCL 2% 400 MG/20 ML MDV 3 ML INJ (10:54)
[2025-02-05] MEDS: DEXAMETHASONE SOD PHOS 10 MG/ML VIAL INJ (10:54)
[2025-02-05] MEDS: IOHEXOL 240 MG/ML - 10 ML VIAL 12 MG INJ (10:54)
--- NOTE | 2025-02-05 10:58 | P.ON_ITS ---
Date of procedure: 02/05/25 Pre-op diagnosis: M54.12 Post-op diagnosis: same as pre-op Procedure: Procedure: Left C5-6, 6-7 transforaminal epidural steroid injection Medications: Bupivacaine 0.25% 1cc, lidocaine 2% 1cc, dexamethasone 10mg The patient was seen and examined in the preoperative holding area.? Informed consent was obtained and placed on the chart.? Patient was brought to the medical procedure unit and placed in the prone position where a timeout was completed verifying the correct patient, procedure site, position, and planned special equipment using sterile aseptic technique.? Under direct fluoroscopic visualization a 25-gauge Quincke tipped spinal needle was advanced to the designated neural foramen where contrast dye was injected to show adequate spread.? The needle was inserted at level left C5-6. There was no evidence of vascular or adverse uptake.? Epidural spread was appreciated.? The above- mentioned injectate was then placed in a 1.5 mL aliquot preceded by negative aspiration.? The needle was removed. The needle was inserted and the procedure repeated at level left C6-7.? The surgery site was covered.? Patient was taken to the postprocedural recovery area and monitored for an appropriate length of time before found suitable for discharge in the accompaniment of a responsible adult. Anesthesia: Local Surgeon: Radha Chinchilla Pathology: none sent Condition: stable Disposition: no change
[2025-02-05 14:40] VITALS: BP 114/64; BP 121/68; PULSE 59; PULSE 64; O2SAT 99
== END 2025-02-05 10:58 | disposition home or self-care (01) ==
PROVIDERS: PCP Internal Medicine; Visit Provider Anesthesiology
DX: M54.12 Radiculopathy, cervical region (principal); E11.8 Type 2 diabetes mellitus with unspecified complications; Z79.84 Long term (current) use of oral hypoglycemic drugs
CPT/HCPCS: 36415; 64479; 64480; 82948; J0665; J1100; Q9966

== ENCOUNTER 2025-02-14 13:25 | Outpatient (OUT) | payer MEDICARE, OTHER, SELFPAY ==
--- OUTSIDE RECORDS SUMMARY | 2025-01-31 16:00 | XMS_ITS | Encounter Summary ---
Author Organization [facility] tem Address [id number] [address] [place] [address] Care Team Providers Care Car Repairman Name Role Phone Javier Espinosa DO Primary Care Provider [phone] Reason for Referral * Consultation (Routine) - Authorized Specialty Diagnoses / Procedures Referred By Contac t Referred To Contact Nutrition Diagnoses Type 2 diabetes mellitus with diabetic polyneuropathy, without long-term current use of insulin ([facility]) Javier Espinosa DO [address] [place] [address] Phone: tel: fax: [facility] - Nutrition Services [address] [place] [address] Phone: tel: fax: Referral ID Status Reason Start Date Expiration Date V isits Requested Visits Authorized [id number] Authorized 01/31/2025 01/31/2026 1 1 Reason for Visit * Reason Comments intermittent lower abd pain Encounter Details Date Type Department Care Team (Late st Contact Info) Description 01/31/2025 4:00 PM EDT Office Visit [facility] Internal Medicine - Family Medicine [address] [place] [address] Javier Espinosa DO [address] [place] [address] Type 2 diabetes mellitus with diabetic polyneuropathy, without long-term current use of insulin ([facility]) (Primary Dx); Dea rash of groin; Laryngopharyngeal [...] Javi Age - 69 y.o. - 1955 [facility] # - [id number] ASSESSMENT & PLAN 1. Type 2 diabetes mellitus with diabetic polyneuropathy, without long-term current use of insulin ([facility]) (Primary) -goals of treatment reviewed with the patient -currently on metformin 500 mg b.i.d. -we discussed the importance of diet in controlling his diabetes -referral to dietitian for carb counting and increased fiber in his diet - [facility] - Nutrition Services; Future 2. Dea rash [...] guarding. Genitourinary: Pubic Area: Rash present. Comments: [place], slightly raised, macerated skin in the bilateral [...] ORAL), in the morning., Disp: , Rfl: rxsbwgvujci-naoqwecls-jkhthwxx (TRELEGY ELLIPTA) 200-62.5-25 mcg blister with device, [...] No results found. Javier Espinosa DO., JEFF [facility] Office: [phone] documented in this encounter Plan of Treatment Upcoming Encounters Date Type Department Care Team (Late st Contact Info) Description 03/08/2025 1:00 PM EDT Support Visit [facility] - Diabetes and Nutrition Education [address] [place] [address] Javier Espinosa DO [address] [place] [address] Madelaine Schulz LD 03/27/2025 3:00 PM EDT Office Visit [facility] Internal Medicine - Family Medicine [address] [place] [address] Javier Espinosa DO [address] [place] [address] Scheduled Referrals Name Type Priority Associated Diagnoses Order Schedule [facility] - Nutrition Services Outpatient Referral Routine Type 2 diabetes mellitus with diabetic polyneuropathy, without long-term current use of insulin ([facility]) 1 Occurrences starting 01/31/2025 until 01/31/2026 documented as of this encounter Visit Diagnoses Diagnosis Type 2 diabetes mellitus with diabetic polyneuropathy, without long-term current use of insulin ([facility])- Primary Dea rash of groin Laryngopharyngeal reflux (LPR) documented in this encounter Additional Health Concerns Assessment Noted Time PHQ-9 Depression Total Score: 0 02/01/20 25 4:28 PM EDT documented as of this encounter Care Teams Car Repairman Relationship Specialty Start Date End Date Javier Espinosa DO [facility] [address] [id number] PCP - General Internal Medicine 04/13/24 documented as of this encounter
--- OUTSIDE RECORDS SUMMARY | 2025-02-14 13:28 | XMS_ITS | Encounter Summary ---
Author Organization [employer] tem Address [facility] [place] [facility]-[id number] [address] [place] [address] Care Team Providers Care Bat Carrier Name Role Phone Javier Espinosa DO Primary Care Provider [phone] Reason for Referral * Consultation (Routine) - Pending Review Specialty Diagnoses / Procedures Referred By Contac t Referred To Contact Endocrinology, Diabetes & Metabolism Diagnoses Type 2 diabetes mellitus with diabetic polyneuropathy, without long-term current use of insulin ([facility]) Javier Espinosa DO [address] [place] [address] Phone: tel: fax: [facility] - Diabetes and Nutrition Education [address] [place] [address] Phone: tel: fax: Referral ID Status Reason Start Date Expiration Date Visits Requested Visits Authorized [id number] Pending Review Specialty Services Required 02/01/2025 02/01/2026 1 1 Encounter Details Date Type Department Care Team (Late st Contact Info) Description 02/01/2025 Telephone [facility] - Diabetes [address] [phone] Ana Moeller CMA Social History Tobacco Use [...] sign if you are agreeable. Thank you [facility] Diabetes and Nutrition Education * Telephone Encounter - Javier Espinosa DO - 02/01/2025 7:31 AM EDT Message noted. New diet education were signed documented in this encounter Plan of Treatment Upcoming Encounters Date Type Department Care Team (Late st Contact Info) Description 03/08/2025 1:00 PM EDT Support Visit [facility] - Diabetes [facility] Nutrition Education [address] [place] [address] Javier Espinosa DO [address] [place] [address] Madelaine Schulz LD 03/27/2025 3:00 PM EDT Office Visit [facility] - Family Medicine [address] [place] [phone] Javier Espinosa DO [address] [place] [address] Scheduled Referrals Name Type Priority Associated Diagnoses Order Schedule Ambulatory referral to Diabetic Education Outpatient Referral Routine Type 2 diabetes mellitus with diabetic polyneuropathy, without long-term current use of insulin ([facility]) 1 Occurrences starting 02/01/2025 until 02/01/2026 documented as of this encounter Visit Diagnoses Diagnosis Type 2 diabetes mellitus with diabetic polyneuropathy, without long-term current use of insulin ([facility])- Primary documented in this encounter Additional Health Concerns Assessment Noted Time PHQ-9 Depression Total Score: 0 02/01/20 25 4:28 PM EDT documented as of this encounter Care Teams Bat Carrier Relationship Specialty Start Date End Date Javier Espinosa DO [address] [place] [address] PCP - General Internal Medicine 04/13/24 documented as of this encounter
--- OUTSIDE RECORDS SUMMARY | 2025-02-14 13:28 | XMS_ITS | Encounter Summary ---
Author Organization [facility] [employer] [facility] tem Address [id number] [address] [place] [address] Care Team Providers Care Record Label Internship Name Role Phone Javier Espinosa DO Primary Care Provider Encounter Details Date Type Department Care Team (Late st Contact Info) Description 05/10/2024 Orders Only [facility] - Family Medicine [address] [place] [address] Javier Espinosa DO [address] [place] [address] B12 deficiency (Primary Dx) Social History Tobacco [...] Description 03/08/2025 1:00 PM EDT Support Visit [facility] - Diabetes and Nutrition Education [address] [place] [address] Javier Espinosa, DO [address] [place] [address] Madelaine Schulz LD 03/27/2025 3:00 PM EDT Office Visit [facility] Internal Medicine - Family Medicine [address] [place] [phone] Javier Espinosa DO [address] [place] [address] documented as of this encounter Visit Diagnoses Diagnosis B12 deficiency- Primary documented in this encounter Additional Health Concerns Infection Onset Date Last Indicated Resolved Time Respiratory Rule-Out 08/28/2024 08/28/2024 025 11:18 AM EDT Assessment Noted Time PHQ-9 Depression Total Score: 0 05/09/20 24 2:11 PM EST documented as of this encounter Care Teams Record Label Internship Relationship Specialty Start Date End Date Javier Espinosa DO [address] [place] [address] PCP - General Internal Medicine 04/13/24 documented as of this encounter
--- OUTSIDE RECORDS SUMMARY | 2025-02-14 13:28 | XMS_ITS | Encounter Summary ---
Author Organization [facility] [employer] [facility] tem Address [id number] [address] [place] [address] Care Team Providers Care Pediatric Allergist Name Role Phone Javier Espinosa DO Primary Care Provider [phone] Encounter Details Date Type Department Care Team [...] Description 03/08/2025 1:00 PM EDT Support Visit [facility] - Diabetes and Nutrition Education [address] [place] [address] Javier Espinosa DO [address] [place] [address] Zeus MadelaineSONIA 03/27/2025 3:00 PM EDT Office Visit [facility] - Family Medicine [address] [place] [address] Javier Espinosa DO [address] [place] [address] documented as of this encounter Visit Diagnoses Not on filedocumented in this encounter Additional Health Concerns Assessment Noted Time PHQ-9 Depression Total Score: 0 02/01/20 25 4:28 PM EDT documented as of this encounter Care Teams Pediatric Allergist Relationship Specialty Start Date End Date Javier Espinosa DO [address] [place] [address] PCP - General Internal Medicine 04/13/24 documented as of this encounter
--- OUTSIDE RECORDS SUMMARY | 2025-02-14 13:28 | XMS_ITS | Encounter Summary ---
Author Organization [facility] [employer] [facility] tem Address [id number] [address] [place] [address] Care Team Providers Care Assembler Caterpillar Spider Name Role Phone Javier Espinosa DO Primary Care Provider [phone] Encounter Details Date Type Department Care Team (Late Contact Info) Description 01/09/2025 Orders Only [facility] Internal [facility] - Family Medicine [address] [place] [phone] Maria A Mitchell CMA Cervical spondylosis without [...] Description 03/08/2025 1:00 PM EDT Support Visit [facility] - Diabetes and Nutrition Education [address] [facility] [place] [address] Javier Espinosa DO [address] [facility] [address] Zeus MadelaineSONIA 03/27/2025 3:00 PM EDT Office Visit [facility] Internal Medicine - Family Medicine [address] [place] [address] Javier Espinosa DO [address] [place] [address] documented as of this encounter Procedures Procedure [...] documented as of this encounter Care Teams Assembler Caterpillar Spider Relationship Specialty Start Date End Date Javier Espinosa DO [address] [facility] [place] [address] PCP - General Internal Medicine 04/13/24 documented as of this encounter
--- OUTSIDE RECORDS SUMMARY | 2025-02-14 13:28 | XMS_ITS | Encounter Summary ---
Author Organization [facility] tem Address [facility]-[id number] [address] [place] [address] Care Team Providers Care Construction Job Titles Name Role Phone Javier Espinosa DO Primary Care Provider [phone] Encounter Details Date Type Department Care Team (Late st Contact Info) Description 08/24/2024 Orders Only [facility] Internal [facility] - Family Medicine [address] [place] [address] Javier Espinosa DO [address] [place] [address] Hypothyroidism, unspecified type Social History Tobacco Use [...] Description 03/08/2025 1:00 PM EDT Support Visit [facility] - Diabetes and Nutrition Education [address] [place] [address] Javier Espinosa, DO [address] [place] [address] Madelaine Schulz LD 03/27/2025 3:00 PM EDT Office Visit [facility] Internal Medicine - Family Medicine [address] [place] [phone] Javier Espinosa DO [address] [place] [address] documented as of this encounter Visit Diagnoses Diagnosis Hypothyroidism, unspecified type documented in this encounter Additional Health Concerns Infection Onset Date Last Indicated Resolved Time Respiratory Rule-Out 08/28/2024 08/28/2024 025 11:18 AM EDT Assessment Noted Time PHQ-9 Depression Total Score: 0 08/24/19 25 2:37 PM EST documented as of this encounter Care Teams Construction Job Titles Relationship Specialty Start Date End Date Javier Espinosa DO [address] [place] [address] PCP - General Internal Medicine 04/13/24 documented as of this encounter
--- OUTSIDE RECORDS SUMMARY | 2025-02-14 13:28 | XMS_ITS | Encounter Summary ---
Author Organization [employer] [facility] tem Address [facility]-[id number] [address] [place] [address] Care Team Providers Care Management Lecturer Name Role Phone Javier Espinosa DO Primary Care Provider [phone] Encounter Details Date Type Department Care Team (Late st Contact Info) Description 05/10/2024 [facility] [address] [place] [address] Jennifer Coleman CMA Social History Tobacco Use [...] the injections at the infusion center at [facility] They should be contacting him * Telephone [...] 03/08/2025 1:00 PM EDT Support Visit [facility] - Diabetes and Nutrition Education [address] [place] [address] Javier Espinosa, [address] [facility] [place] [address] Madelaine Schulz LD 03/27/2025 3:00 PM EDT Office Visit [facility] Internal Medicine - Family Medicine [address] [place] [address] Javier Espinosa DO [address] [place] [address] documented as of this encounter Visit Diagnoses Not on filedocumented in this encounter Additional Health Concerns Infection Onset Date Last Indicated Resolved Time Respiratory Rule-Out 08/28/2024 08/28/2024 025 11:18 AM EDT Assessment Noted Time PHQ-9 Depression Total Score: 0 05/09/20 2:11 PM EST documented as of this encounter Care Teams Management Lecturer Relationship Specialty Start Date End Date Javier Espinosa DO [address] [place] [address] PCP - General Internal Medicine 04/13/24 documented as of this encounter
--- OUTSIDE RECORDS SUMMARY | 2025-02-14 13:28 | XMS_ITS | Encounter Summary ---
Author Organization [facility] tem Address [facility]-[id number] [address] [place] [address] Care Team Providers Care Voltage Regulator Assembler Name Role Phone Javier Espinosa DO Primary Care Provider [phone] Encounter Details Date Type Department Care Team (Late Contact Info) Description 01/10/2025 Orders Only [facility] Internal [facility] - Family Medicine [address] [place] [address] Ref Prov, [place] [address] Social History Tobacco Use Types Packs/Day Years [...] Description 03/08/2025 1:00 PM EDT Support Visit [facility] - Diabetes and Nutrition Education [address] [place] [address] Javier Espinosa, DO [address] [place] [address] Zeus MadelaineSONIA 03/27/2025 3:00 PM EDT Office Visit [facility] Internal Medicine - Family Medicine [address] [place] [address] Javier Espinosa, DO [address] [place] [address] documented as of this encounter Procedures Procedure [...] documented as of this encounter Care Teams Voltage Regulator Assembler Relationship Specialty Start Date End Date Javier Espinosa DO [address] [place] [address] PCP - General Internal Medicine 04/13/24 documented as of this encounter
--- OUTSIDE RECORDS SUMMARY | 2025-02-14 13:28 | XMS_ITS | Clinical Summary ---
Author Organization [employer] tem Address [id number] [address] [place] [address] Care Team Providers Care Brazing Furnace Feeder Name Role Phone Javier Espinosa Kelle MORA Primary Care Provider [phone] Allergies Active Allergy Reactions Criticality Noted Date [...] exacerbation of chronic obstructive pulmonary disease (COPD) ([facility]) Inhale 3 mL (2.5 mg total) by nebulization 4 (four) times a day. 75 mL 1 025 Active cyanocobalamin 1000 MCG tabletIndications :B12 deficiency TAKE 1 TABLET BY MOUTH EVERY MORNING 90 tablet 1 025 Active fluticasone-umecl idin-vilanter (TRELEGY ELLIPTA) 200-62.5-25 mcg blister with deviceIndications :Chronic obstructive pulmonary disease, unspecified COPD type ([facility]) Inhale 1 puff in the morning. 180 [...] polyneuropathy, without long-term current use of insulin ([facility]) TAKE 1 TABLET BY MOUTH EVERY MORNING [...] Application before bedtime. 30 g 025 Active blood-glucose meter (TRUE METRIX GLUCOSE METER) miscIndications:T ype 2 diabetes mellitus with diabetic polyneuropathy, without long-term current use of insulin ([facility]) 1 Device by miscellaneous route in the morning. 1 each 025 Active blood sugar diagnostic (TRUE METRIX GLUCOSE TEST STRIP) stripIndications: Type 2 diabetes mellitus with diabetic polyneuropathy, without long-term current use of insulin ([facility]) 1 strip by other route every morning before breakfast. 100 strip 1 025 Active lancets miscIndications:T ype 2 diabetes mellitus with diabetic polyneuropathy, without long-term current use of insulin ([facility]) 1 Lancet by miscellaneous route in the morning. 100 each 1 025 Active omeprazole (PriLOSEC) 20 mg capsuleIndication s:Laryngopharynge al reflux (LPR) Take 1 capsule (20 mg total) by mouth every other day. 90 capsule 025 2024 Discontinued(T herapy completed) lisinopriL (PRINIVIL,ZESTRIL ) 10 mg tabletIndications :Essential [...] Encounters Date Type Department Care Team Description 02/06/2025 Orders Only [facility] Internal Medicine - Family Medicine [address] [place] [address] Javier Espinosa, Type 2 diabetes mellitus with diabetic polyneuropathy, without long-term current use of insulin ([facility]) (Primary Dx) 02/06/2025 Telephone [facility] Medicine [address] [place] [address] Elda Hunt [facility] Med Refill 02/01/2025 Telephone [facility] Diabetes [place] - Diabetes [address] [facility] [address] [place] [address] Ana Moeller CMA 01/31/2025 4:00 PM EDT Office Visit [facility] - Family Medicine [address] [place] [address] Javier Espinosa, Type 2 diabetes mellitus with diabetic polyneuropathy, without long-term current use of insulin ([facility]) (Primary Dx); Dea rash of groin; Laryngopharyngeal reflux (LPR) 01/31/2025 Travel 01/20/2025 Refill [facility] Internal [facility] - Family Medicine [address] [place] [address] Javier Espinosa, Essential hypertension 01/10/2025 Orders Only [facility] Internal Medicine - Family Medicine [address] [place] [address] Ref Prov, Not In System 01/09/2025 Orders Only [facility] Internal Medicine - Family Medicine [address] [place] [address] Maria A Mitchell CMA Cervical spondylosis without myelopathy 01/08/2025 Refill [facility] Internal [facility] - Family Medicine [address] [place] [address] Javier Espinosa, Type 2 diabetes mellitus with diabetic polyneuropathy, without long-term current use of insulin ([facility]) 01/02/2025 Telephone [facility] General Surgery [address] [place] [address] Dawood Hitchcock, DO 01/01/2025 11:59 PM EDT Anesthesia Event [facility] - Surgery [address] [place] [address] Carlos Reyes, 12/28/2024 11:00 AM EDT Office Visit [facility] General Surgery [address] [place] [address] Cathy Lopez APRN-JING Rectal bleeding (Primary Dx); History of colon cancer 12/28/2024 Travel 12/18/2024 Refill [facility] Internal [facility] - Family Medicine [address] [place] [address] Javier Espinosa DO Hyperlipidemia, unspecified hyperlipidemia type 12/04/2024 Refill [facility] Internal [facility] - Family Medicine [address] [address] Javier Espinosa DO Obsessive-compulsive disorder, unspecified type 11/28/2024 10:00 AM EDT Clinical Support [facility] - [facility] Medicine [address] [place] [address] Javier Espinosa DO Chronic obstructive pulmonary disease, unspecified COPD type ([facility]) (Primary Dx) 11/28/2024 Travel 11/21/2024 2:15 PM EDT Office Visit [facility] - Family Medicine [address] [place] [address] Javier Espinosa DO Chronic obstructive pulmonary disease, unspecified COPD type ([facility]) (Primary Dx); Hypothyroidism, unspecified type; Type 2 diabetes mellitus with diabetic polyneuropathy, without long-term current use of insulin ([facility]); Essential hypertension 11/21/2024 Travel 11/21/2024 Refill [facility] - [facility] Medicine [address] [place] [address] Javier Espinosa DO B12 deficiency from Last 3 Months Immunizations Immunization Administration [...] Support Visit [facility] - Diabetes and Nutrition Education [address] [place] [address] Javier Espinosa, [address] [facility] [place] [address] Madelaine Schulz LD 03/27/2025 3:00 PM EDT Office Visit [facility] Internal Medicine - Family Medicine [address] [facility] [place] [address] Javier Espinosa, DO [address] [place] [address] Health Maintenance Due Date Last Done Comments [...] polyneuropathy, without long-term current use of insulin ([facility]) COMPREHENSIVE METABOLIC PANEL Routine 11/21/2024 2:53 PM EDT Type 2 diabetes mellitus with diabetic polyneuropathy, without long-term current use of insulin ([facility]) LIPID PROFILE Routine 11/21/2024 2:53 PM EDT Type 2 diabetes mellitus with diabetic polyneuropathy, without long-term current use of insulin ([facility]) COLONOSCOPY 09/28/2022 9:52 AM EDT from Last [...] includes TSH FT4 (11/21/2024 2:53 PM EDT) FREE T4 0.77 0.61 - 1.60 ng/dL 11/21/2024 6:48 PM EDT [facility] TSH 3.02 0.49 - 4.67 uIU/mL 11/21/2024 6:48 PM EDT [facility] Blood Venous blood / Unknown 11/21/2024 2:53 PM EDT 11/21/2024 2:53 PM EDT Javier Campajosi LAB BLOOD ORDERABLES Final Resul t [facility] [address] [place] [address], [place] [phone] * (ABNORMAL) Hemoglobin A1c (11/21/2024 2:53 PM EDT) HEMOGLOBIN A1C 6.6(H) 4.4 - 5.6 % 11/21/2024 6:52 PM EDT [facility] Comment: ADA Guidelines Result HgbA1c Normal : less than 5.7 % Prediabetes : 5.7 % to 6.4 % Diabetes : > 6.4 % Use with caution in patients with abnormal hemoglobin variants as the half-life of red blood cells and in vivo glycation rates are affected. EST. AVERAGE GLUCOSE 143 mg/dL 11/21/2024 6:52 PM EDT [facility] Blood Venous blood / Unknown 11/21/2024 2:53 PM EDT 11/21/2024 2:53 PM EDT Javier Espinosa DO LAB BLOOD ORDERABLES Final Resul t [facility] [address] [place] [address], [place] [phone] * (ABNORMAL) Lipid profile (11/21/2024 2:53 PM EDT) CHOLESTEROL 159 150 - 200 mg/dL 11/21/2024 6:39 PM EDT [facility] TRIGLYCERIDE 233(H) 27 - 150 mg/dL 11/21/2024 6:39 PM EDT [facility] HDL CHOLESTEROL 51 >39 mg/dL 6:39 PM EDT [facility] Comment: HDL <40 mg/dL - High Risk HDL > or = 40mg/dL- Desirable HDL >60 mg/dL - Negative Risk LDL (CALC) 61 <130 mg/dL 11/21/2024 6:39 PM EDT [facility] Comment: LDL <100 mg/dL - Desirable LDL >160 mg/dL - High Risk CHOLESTEROL:HDL 3.1 1.0 - 5.0 6:39 PM EDT [facility] VERY LOW LIPOPROTEIN 47(H) 0 - 30 mg/dL 11/21/2024 6:39 PM EDT [facility] Blood Venous blood / Unknown 11/21/2024 2:53 PM EDT 11/21/2024 2:53 PM EDT Javier Espinosa DO LAB BLOOD ORDERABLES Final Resul t [facility] [address] [place] [address], [place] [phone] * (ABNORMAL) Comprehensive metabolic panel (11/21/2024 2:53 PM EDT) SODIUM 139 134 - 146 mmol/L 11/21/2024 6:39 PM EDT [facility] POTASSIUM 4.6 3.5 - 5.0 mmol/L 11/21/2024 6:39 PM EDT [facility] CHLORIDE 106 98 - 109 mmol/L 11/21/2024 6:39 PM EDT [facility] CARBON DIOXIDE 23 22 - 32 mmol/L 11/21/2024 6:39 PM EDT [facility] ANION GAP 10 5 - 15 mmol/L 11/21/2024 6:39 PM EDT [facility] BLOOD UREA NITROGEN 18 5 - 27 mg/dL 11/21/2024 6:39 PM EDT [facility] CREATININE 1.12 0.60 - 1.30 mg/dL 11/21/2024 6:39 PM EDT [facility] Comment:METHOD TRACEABLE TO IDID STANDARD GLUCOSE 112(H) 65 - 99 mg/dL 11/21/2024 6:39 PM EDT [facility] CALCIUM 9.7 8.5 - 10.5 mg/dL 11/21/2024 6:39 PM EDT [facility] TOTAL PROTEIN 7.0 6.0 - 8.0 g/dL 11/21/2024 6:39 PM EDT [facility] ALBUMIN 4.5 3.2 - 5.3 g/dL 11/21/2024 6:39 PM EDT [facility] ALKALINE PHOSPHATASE 76 39 - 130 U/L 11/21/2024 6:39 PM EDT [facility] AST 18 <=41 U/L 11/21/2024 6:39 PM EDT [facility] ALT 14 <=40 U/L 11/21/2024 6:39 PM EDT [facility] BILIRUBIN,TOTAL 0.6 0.3 - 1.2 mg/dL 11/21/2024 6:39 PM EDT [facility] EGFR Non-Race Dependent 72 >=60 ml/min/1.7 3sq.m 11/21/2024 6:39 PM EDT [facility] Comment: Reported eGFR is based on the CKD-EPI 2020 equation that does not use a race coefficient. Blood Venous blood / Unknown 11/21/2024 2:53 PM EDT 11/21/2024 2:53 PM EDT us Javier Espinosa DO LAB BLOOD ORDERABLES Final Resul t [facility] [address] [place] [address], [place] [phone] * Colonoscopy (09/28/2022 9:52 AM EDT) 09/28/2022 9:52 AM EDT Narrative PM CARDIOVASCULAR - 09/28/2022 10:13 AM EDT [facility] Patient Name: Onesimo Caldwell Procedure Date No Time: 09/28/2022 CSN : [id number] Date of : 1955 Admit Type: Outpatient Age: 67 Room: [place] [address] Gender: Male Note Status: Finalized Attending MD: [...] and oxygen saturations were monitored continuously. The [employer] [id number] #[id number] ADULT COLONOSCOPE was introduced through the anus [...] office PRN. Procedure Code(s): --- Professional --- 95979, Colonoscopy, flexible; with removal of tumor(s), polyp(s), or other lesion(s) by snare technique Diagnosis Code(s): --- Professional --- Z12.11, Encounter for screening for malignant neoplasm of colon D12.8, Benign neoplasm of rectum Z85.038, Personal history of other malignant neoplasm of large intestine CPT copyright 2021 [employer]. All rights reserved. The codes documented in this report are preliminary and upon flavoring machine operator review may be revised to meet current compliance requirements. DO Dawood Reis DO 09/28/2022 10:13:13 AM Number of Addenda: 0 Note Initiated On: 09/28/2022 9:52 AM Procedure Note Dawood Hitchcock DO - 09/28/2022 [facility] Patient Name: Onesimo Caldwell Procedure Date No Time: 09/28/2022 CSN : [id number] Date of : 1955 Admit Type: Outpatient Age: 67 Room: [place] [address] Gender: Male Note Status: Finalized Attending MD: [...] pulse, and oxygen saturations were monitored continuously. [employer] [id number] #[id number] ADULT COLONOSCOPE was introduced through the anus [...] office PRN. Procedure Code(s): --- Professional --- 27543, Colonoscopy, flexible; with removal of tumor(s), polyp(s), or other lesion(s) by snare technique Diagnosis Code(s): --- Professional --- Z12.11, Encounter for screening for malignant neoplasm of colon D12.8, Benign neoplasm of rectum Z85.038, Personal history of other malignant neoplasm of largeintestine CPT copyright 2021 [employer]. All rights reserved. The codes documented in this report are preliminary and upon flavoring machine operator reviewmay be revised to meet current compliance requirements. DO Dawood Reis DO 09/28/2022 10:13:13 AM Number of Addenda: 0 Note Initiated On: 09/28/2022 9:52 AM Dawood Hitchcock DO GI PROCEDURE ORDERABLES Fin al Result PM CARDIOVASCULAR from Last 3 Months or Most Recently Relevant to Health Maintenance Insurance [address] [place] [address] MEDICARE [facility] [place] [address] Care Teams Brazing Furnace Feeder Relationship Specialty Start Date End Date Javier Espinosa DO [address] [place] [id number] PCP - General Internal Medicine 04/13/24
--- OUTSIDE RECORDS SUMMARY | 2025-02-14 13:28 | XMS_ITS ---
Author Organization [employer] tem Address [id number] [address] [place] [address] Care Team Providers Care Sensitometrist Name Role Phone Javier Espinosa DO Primary Care Provider [phone] Active Problems Problem Noted Date Diagnosed Date [...]
--- OUTSIDE RECORDS SUMMARY | 2025-02-14 13:29 | XMS_ITS | Encounter Summary ---
Author Organization [facility] Address [id number] [address] [place] [address] Care Team Providers Care Contact Acid Plant Operator Name Role Phone Javier Espinosa DO Primary Care Provider [phone] Reason for Visit * Reason Comments Med Refill Encounter Details Date Type Department Care Team (Late st Contact Info) Description 11/22/2023 Refill [facility] Internal Medicine - Family Medicine [address] [place] [address] Javier Espinosa DO [address] [place] [address] Laryngopharyngeal reflux (LPR) Social History Tobacco Use [...] Description 03/08/2025 1:00 PM EDT Support Visit [facility] - Diabetes and Nutrition Education [address] [place] [address] Javier Espinosa DO [address] [place] [address] Madelaine Schulz LD 03/27/2025 3:00 PM EDT Office Visit [facility] Internal Medicine - Family Medicine [address] [place] [address] Javier Espinosa DO [address] [place] [address] documented as of this encounter Visit Diagnoses Diagnosis Laryngopharyngeal reflux (LPR) documented in this encounter Additional Health Concerns Infection Onset Date Last Indicated Resolved Time Respiratory Rule-Out 08/28/2024 08/28/2024 025 11:18 AM EDT Assessment Noted Time PHQ-9 Depression Total Score: 0 10/19/19 24 7:55 AM EDT documented as of this encounter Care Teams Contact Acid Plant Operator Relationship Specialty Start Date End Date Javier Espinosa DO [address] [facility] [place] [address] PCP - General Internal Medicine 04/13/24 documented as of this encounter
--- OUTSIDE RECORDS SUMMARY | 2025-02-14 13:29 | XMS_ITS | Encounter Summary ---
Author Organization [employer] [facility] tem Address [id number] [address] [place] [address] Care Team Providers Care Technical Assistance Consultant Name Role Phone Jesús Javier Nina DO Primary Care Provider [phone] Encounter Details Date Type Department Care Team (Late st Contact Info) Description 01/02/2025 Telephone [facility] General Surgery [address] [place] [address] Dawood Hitchcock DO [address] [place], [place] [phone] Social History Tobacco Use Types Packs/Day Years [...] CARLITOS Cruz - 01/02/2025 1:20 PM EDT [facility] surgery coordinator was called and the patient's surgery was cancelled. documented in this encounter Plan of Treatment Upcoming Encounters Date Type Department Care Team (Late st Contact Info) Description 03/08/2025 1:00 PM EDT Support Visit [facility] - Diabetes and Nutrition Education [address] [place] [address] Javier Espinosa DO [address] [place] [address] Madelaine Schulz LD 03/27/2025 3:00 PM EDT Office Visit [facility] Internal Medicine - Family Medicine [address] [place] [address] Javier Espinosa DO [address] [place] [address] documented as of this encounter Visit Diagnoses Not on filedocumented in this encounter Additional Health Concerns Assessment Noted Time PHQ-9 Depression Total Score: 0 11/22/19 25 2:24 PM EDT documented as of this encounter Care Teams Technical Assistance Consultant Relationship Specialty Start Date End Date Javier Espinosa DO [address] [place] [address] PCP - General Internal Medicine 04/13/24 documented as of this encounter
--- OUTSIDE RECORDS SUMMARY | 2025-02-14 13:29 | XMS_ITS | Encounter Summary ---
Author Organization [facility] tem Address [id number] [address] [place] [address] Care Team Providers Care Woodworker Helper Name Role Phone Javier Espinosa DO Primary Care Provider [phone] Encounter Details Date Type Department Care Team (Late Contact Info) Description 10/20/2024 Orders Only [facility] Internal Medicine - Family Medicine [address] [place] [address] Ref Prov, [place] [address] Social History Tobacco Use Types Packs/Day Years [...] 1:00 PM EDT Support Visit [facility] - Diabetes and Nutrition Education [address] [facility] [place] [address] Javier Espinosa DO [address] [facility] [place] [address] Zeus MadelaineSONIA 03/27/2025 3:00 PM EDT Office Visit [facility] Internal Medicine - Family Medicine [address] [place] [address] Javier Espinosa DO [address] [place], [place] [address] documented as of this encounter Procedures Procedure Name Priority Date/Time Associated Diagnosis Comments [id number] Routine 10/19/2024 6:55 AM EDT documented in this encounter Results * [id number] (10/19/2024 6:55 AM EDT) Blood Venous blood / Unknown us Not In System Ref Prov LAB BLOOD ORDERABLES Padma farzad Result MANUALLY TRANSCRIBED RESULTS documented in this encounter Visit Diagnoses Not on filedocumented in this encounter Additional Health Concerns Assessment Noted Time PHQ-9 Depression Total Score: 0 10/20/19 25 4:33 PM EDT documented as of this encounter Care Teams Woodworker Helper Relationship Specialty Start Date End Date Javier Espinosa DO [address] [facility] [address] PCP - General Internal Medicine 04/13/24 documented as of this encounter
--- OUTSIDE RECORDS SUMMARY | 2025-02-14 13:29 | XMS_ITS | Encounter Summary ---
Author Organization [facility] tem Address [facility]-[id number] [address] [place] [address] Care Team Providers Care Poultry Barn Manager Name Role Phone Javier Espinosa Primary Care Provider [phone] Reason for Visit * Reason Onset Date Comments Med Refill 02/06/2025 Encounter Details Date Type Department Care Team (Late st Contact Info) Description 02/06/2025 [facility]phone [facility] [address] [place] [address] Elda Hunt, SHERRIE Med Refill Social History Tobacco Use Types Packs/Day Years [...] encounter Miscellaneous Notes * Telephone Encounter - Elda Hunt CMA - 02/06/2025 1:52 PM EDT Patient stopped by and asked if you can send an order in for true metrix meter, strips and lancets.These need sent to [facility] pharmacy. * Telephone Encounter - Javier Espinosa DO - 02/06/2025 1:52 PM EDT Message noted. Glucometer and supplies sent to pharmacy documented in this encounter Plan of Treatment Upcoming Encounters Date Type Department Care Team (Late st Contact Info) Description 03/08/2025 1:00 PM EDT Support Visit [facility] - Diabetes and Nutrition Education [address] [place] [address] Javier Espinosa DO [address] [place] [address] Madelaine Schulz LD 03/27/2025 3:00 PM EDT Office Visit [facility] Internal Medicine - Family Medicine [address] [place] [address] Javier Espinosa DO [address] [place] [address] documented as of this encounter Visit Diagnoses Not on filedocumented in this encounter Additional Health Concerns Assessment Noted Time PHQ-9 Depression Total Score: 0 02/01/20 25 4:28 PM EDT documented as of this encounter Care Teams Poultry Barn Manager Relationship Specialty Start Date End Date Javier Espinosa DO [address] [place] [address] PCP - General Internal Medicine 04/13/24 documented as of this encounter
--- OUTSIDE RECORDS SUMMARY | 2025-02-14 13:29 | XMS_ITS | Encounter Summary ---
Author Organization [facility] [employer] [facility] tem Address [id number] [address] [place] [address] Care Team Providers Care Signal Repairer Name Role Phone Javier Espinosa DO Primary Care Provider [phone] Encounter Details Date Type Department Care Team (Late st Contact Info) Description 10/04/2023 Orders Only [facility] Internal Medicine - Family Medicine [address] [place] [address] Javier Espinosa DO [address] [place] [address] Laryngopharyngeal reflux (LPR) (Primary Dx) Social History [...] Description 03/08/2025 1:00 PM EDT Support Visit [facility] - Diabetes and Nutrition Education [address] [facility] [place] [address] Javier Espinosa, [address] [place] [address] Zeus MadelaineSONIA 03/27/2025 3:00 PM EDT Office Visit [facility] Internal Medicine - Family Medicine [address] [place] [address] Javier Espinosa DO [address] [place] [address] documented as of this encounter Visit Diagnoses Diagnosis Laryngopharyngeal reflux (LPR)- Primary documented in this encounter Additional Health Concerns Infection Onset Date Last Indicated Resolved Time Respiratory Rule-Out 08/28/2024 08/28/2024 025 11:18 AM EDT Assessment Noted Time PHQ-9 Depression Total Score: 0 08/17/19 24 8:10 AM EST documented as of this encounter Care Teams Signal Repairer Relationship Specialty Start Date End Date Javier Espinosa DO [address] [place] [address] PCP - General Internal Medicine 04/13/24 documented as of this encounter
--- OUTSIDE RECORDS SUMMARY | 2025-02-14 13:29 | XMS_ITS | Encounter Summary ---
Author Organization [employer] [facility] tem Address [facility][id number] [address] [place] [address] Care Team Providers Care Crumb Packer Name Role Phone Javier Espinosa DO Primary Care Provider [phone] Reason for Referral * Consultation (Routine) - Authorized Specialty Diagnoses / Procedures Referred By Contac t Referred To Contact Pain Medicine Diagnoses Cervical spondylosis without myelopathy Javier Espinosa DO [address] [place] [address] Phone: tel: fax: Radha Chinchilla MD [address] [place] [address] Phone: tel: fax: Referral ID Status Reason Start Date Expiration Date V isits Requested Visits Authorized [id number] Authorized 11/07/2024 11/07/2025 4 4 Encounter Details Date Type Department Care Team (Late st Contact Info) Description 11/07/2024 Orders Only [facility] Internal Medicine - Family Medicine [address] [place] [address] Javier Espinosa DO [address] [place] [address] Cervical spondylosis without myelopathy (Primary Dx) Social [...] Diabetes and Nutrition Education [address] [place] [address] Javier Espinosa DO [address] [place] [address] Madelaine Schulz LD 03/27/2025 3:00 PM EDT Office Visit [facility] Internal Medicine - Family Medicine [address] [place] [address] Javier Espinosa DO [address] [place] [address] documented as of this encounter Results * [...] documented as of this encounter Care Teams Crumb Packer Relationship Specialty Start Date End Date Javier Espinosa DO [address] [place] [address] PCP - General Internal Medicine 04/13/24 documented as of this encounter
--- OUTSIDE RECORDS SUMMARY | 2025-02-14 13:29 | XMS_ITS | Encounter Summary ---
Author Organization [facility] tem Address [facility] [id number] [address] [place] [address] Care Team Providers Care Cna Hha Name Role Phone Javier Espinosa DO Primary Care Provider [phone] Encounter Details Date Type Department Care Team (Late Contact Info) Description 03/30/2023 Orders Only [facility] Internal Medicine - Family Medicine [address] [place] [address] Javier Espinosa DO [address] [place] [address] B12 deficiency (Primary Dx) Social History Tobacco [...] Description 03/08/2025 1:00 PM EDT Support Visit [facility] - Diabetes and Nutrition Education [address] [place] [address] Javier Espinosa DO [address] [place] [address] Madelaine SchulzSONIA 03/27/2025 3:00 PM EDT Office Visit [facility] Internal Medicine - Family Medicine [address] [place] [address] Javier Espinosa DO [address] [place] [address] documented as of this encounter Visit Diagnoses Diagnosis B12 deficiency- Primary documented in this encounter Additional Health Concerns Infection Onset Date Last Indicated Resolved Time Respiratory Rule-Out 08/28/2024 08/28/2024 025 11:18 AM EDT documented as of this encounter Care Teams Cna Hha Relationship Specialty Start Date End Date Javier Espinosa DO [address] [place] [address] PCP - General Internal Medicine 04/13/24 documented as of this encounter
--- OUTSIDE RECORDS SUMMARY | 2025-02-14 13:29 | XMS_ITS | Encounter Summary ---
Author Organization [facility] tem Address [facility] [place][id number] [address] [place] [address] Care Team Providers Care Doughnut Icer Name Role Phone Javier Espinosa DO Primary Care Provider [phone] Reason for Visit * Reason Comments Med Refill Encounter Details Date Type Department Care Team (Late st Contact Info) Description 05/09/2023 Refill [facility] Internal Medicine - Family Medicine [address] [place] [address] Javier Espinosa DO [address] [place] [address] Laryngopharyngeal reflux (LPR) Social History Tobacco Use [...] Description 03/08/2025 1:00 PM EDT Support Visit [facility] - Diabetes and Nutrition Education [address] [place] [address] Javier Espinosa DO [address] [place] [address] Madelaine Schulz LD 03/27/2025 3:00 PM EDT Office Visit [facility] Internal Medicine - Family Medicine [address] [place] [address] Javier Espinosa DO [address] [place] [address] documented as of this encounter Visit Diagnoses Diagnosis Laryngopharyngeal reflux (LPR) documented in this encounter Additional Health Concerns Infection Onset Date Last Indicated Resolved Time Respiratory Rule-Out 08/28/2024 08/28/2024 025 11:18 AM EDT Assessment Noted Time PHQ-9 Depression Total Score: 0 04/26/20 23 2:29 PM EST documented as of this encounter Care Teams Doughnut Icer Relationship Specialty Start Date End Date Javier Espinosa DO [address] [place] [address] PCP - General Internal Medicine 04/13/24 documented as of this encounter
--- OUTSIDE RECORDS SUMMARY | 2025-02-14 13:29 | XMS_ITS | Encounter Summary ---
Author Organization [facility] tem Address [facility] [id number] [address] [place] [address] Care Team Providers Care Tower Hand Name Role Phone Javier Espinosa DO Primary Care Provider [phone] Encounter Details Date Type Department Care Team (Late Contact Info) Description 11/01/2024 Orders Only [facility] Internal Medicine - Family Medicine [address] [place] [address] Ref Prov, [place] [address] Social History Tobacco Use Types Packs/Day Years [...] Description 03/08/2025 1:00 PM EDT Support Visit [facility] - Diabetes and Nutrition Education [address] [place] [address] Javier Espinosa, [address] [place] [facility] [place] [address] Zeus MadelaineSONIA 03/27/2025 3:00 PM EDT Office Visit [facility] Internal Medicine - Family Medicine [address] [place] [address] Javier Espinosa, DO [address] [place], [place] [phone] documented as of this encounter Procedures Procedure Name Priority Date/Time Associated Diagnosis Comments [id number] Routine 11/01/2024 4 :15 PM EDT documented in this encounter Results * [id number] (11/01/2024 4:15 PM EDT) Blood Venous blood / Unknown us Not In System Ref Prov LAB BLOOD ORDERABLES Padma l Result MANUALLY TRANSCRIBED RESULTS documented in this encounter Visit Diagnoses Not on filedocumented in this encounter Additional Health Concerns Assessment Noted Time PHQ-9 Depression Total Score: 0 10/25/19 25 4:17 PM EDT documented as of this encounter Care Teams Tower Hand Relationship Specialty Start Date End Date Javier Espinosa DO [address] [place] [facility] [place] [address] PCP - General Internal Medicine 04/13/24 documented as of this encounter
--- OUTSIDE RECORDS SUMMARY | 2025-02-14 13:29 | XMS_ITS | Encounter Summary ---
Author Organization [facility] tem Address [facility] [place]-[id number] [address] [place] [address] Care Team Providers Care Inflated Ball Molder Name Role Phone Javier Espinosa DO Primary Care Provider [phone] Encounter Details Date Type Department Care Team (Late st Contact Info) Description 07/21/2023 Orders Only [facility] Internal Medicine - Family Medicine [address] [place] [address] Javier Espinosa DO [address] [place] [address] Type 2 diabetes mellitus with diabetic polyneuropathy, without long-term current use of insulin ([facility]) Social History Tobacco Use Types Packs/Day Years [...] and Nutrition Education [address] [place] [address] Javier Espinosa, [address] [place] [address] Madelaine Schulz LD 03/27/2025 3:00 PM EDT Office Visit [facility] Internal Medicine - Family Medicine [address] [place] [address] Javier Espinosa DO [address] [place] [address] documented as of this encounter Visit Diagnoses Diagnosis Type 2 diabetes mellitus with diabetic polyneuropathy, without long-term current use of insulin ([facility]) documented in this encounter Additional Health Concerns Infection Onset Date Last Indicated Resolved Time Respiratory Rule-Out 08/28/2024 08/28/2024 025 11:18 AM EDT Assessment Noted Time PHQ-9 Depression Total Score: 0 07/08/19 24 7:59 AM EST documented as of this encounter Care Teams Inflated Ball Molder Relationship Specialty Start Date End Date Javier Espinosa DO [address] [place] [address] PCP - General Internal Medicine 04/13/24 documented as of this encounter
--- OUTSIDE RECORDS SUMMARY | 2025-02-14 13:29 | XMS_ITS | Encounter Summary ---
Author Organization [facility] Address [facility] [place] [id number] Care Team Providers Care Recreation Supervisor Name Role Phone Lai Pena DO Primary Care Provider [phone] Mann Baker MD Primary Care Provider [phone] Source Comments In the event this information is protected by the Federal Confidentiality of Alcohol and Drug AbusePatient Records regulations: The Federal rules restrict any use of the information to criminally investigate or prosecute any alcohol or drug abuse patient.[facility] Encounter Details Date Type Department Care [...] Author No 02/20/2014 7:00 AM BRENAugie Arnold [employer] * Do you have serious difficulty walking [...] on filedocumented in this encounter Care Teams Recreation Supervisor Relationship Specialty Start Date End Date Lai Pena DO PCP - General Family Medicine 02/01/14 03/23/18 Mann Baker MD [address] [place] [address] PCP - General Family Medicine 03/24/18 documented as of this encounter
--- OUTSIDE RECORDS SUMMARY | 2025-02-14 13:29 | XMS_ITS | Encounter Summary ---
Author Organization [facility] [employer] [facility] tem Address [facility] [place]-[id number] [address] [place] [address] Care Team Providers Care Cook Apprentice Name Role Phone Javier Espinosa DO Primary Care Provider [phone] Encounter Details Date Type Department Care Team (Late st Contact Info) Description 06/02/2023 Orders Only [facility] Internal Medicine - Family Medicine [address] [place] [address] Javier Espinosa DO [address] [place] [address] Chest pain, unspecified type (Primary Dx) Social [...] Description 03/08/2025 1:00 PM EDT Support Visit [facility] - Diabetes and Nutrition Education [address] [facility] [place] [address] Javier Espinosa, [address] [place] [address] Zeus MadelaineSONIA 03/27/2025 3:00 PM EDT Office Visit [facility] Internal Medicine - Family Medicine [address] [place] [address] Javier Espinosa DO [address] [place] [address] documented as of this encounter Visit Diagnoses Diagnosis Chest pain, unspecified type- Primary documented in this encounter Additional Health Concerns Infection Onset Date Last Indicated Resolved Time Respiratory Rule-Out 08/28/2024 08/28/2024 025 11:18 AM EDT Assessment Noted Time PHQ-9 Depression Total Score: 0 04/26/20 23 2:29 PM EST documented as of this encounter Care Teams Cook Apprentice Relationship Specialty Start Date End Date Javier Espinosa DO [address] [place] [address] PCP - General Internal Medicine 04/13/24 documented as of this encounter
--- OUTSIDE RECORDS SUMMARY | 2025-02-14 13:29 | XMS_ITS | Encounter Summary ---
Author Organization [facility] tem Address [facility]-[id number] [address] [place] [address] Care Team Providers Care Associate Buyer Name Role Phone Javier Espinosa DO Primary Care Provider [phone] Encounter Details Date Type Department Care Team (Late st Contact Info) Description 06/16/2023 Orders Only [facility] Internal Medicine - Family Medicine [address] [place] [address] Javier Espinosa DO [address] [place] [address] Laryngopharyngeal reflux (LPR) Social History Tobacco Use [...] Description 03/08/2025 1:00 PM EDT Support Visit [facility] - Diabetes and Nutrition Education [address] [place] [address] Javier Espinosa, DO [address] [place] [address] Madelaine Schulz LD 03/27/2025 3:00 PM EDT Office Visit [facility]icians Internal Medicine - Family Medicine [address] [place] [address] Javier Espinosa DO [address] [place] [address] documented as of this encounter Visit Diagnoses Diagnosis Laryngopharyngeal reflux (LPR) documented in this encounter Additional Health Concerns Infection Onset Date Last Indicated Resolved Time Respiratory Rule-Out 08/28/2024 08/28/2024 025 11:18 AM EDT Assessment Noted Time PHQ-9 Depression Total Score: 0 04/26/20 23 2:29 PM EST documented as of this encounter Care Teams Associate Buyer Relationship Specialty Start Date End Date Javier Espinosa DO [address] [place] [address] PCP - General Internal Medicine 04/13/24 documented as of this encounter
--- OUTSIDE RECORDS SUMMARY | 2025-02-14 13:29 | XMS_ITS | Encounter Summary ---
Author Organization [employer] [facility] tem Address [facility] [place][id number] [address] [place] [address] Care Team Providers Care Saddle Stitching Machine Operator Name Role Phone Javier Espinosa DO Primary Care Provider [phone] Encounter Details Date Type Department Care Team (Late st Contact Info) Description 10/26/[address] - [facility] [address] [facility] [place] [address] Katherine Pierson CMA Social History Tobacco Use [...] DO Sent: 10/23/2024 12:00 AM EDT To: [facility] Aless[facility] Breastfeeding Program Coordinator DM recheck. BP recheck documented in this encounter Plan of Treatment Upcoming Encounters Date Type Department Care Team (Late st Contact Info) Description 03/08/2025 1:00 PM EDT Support Visit [facility] - Diabetes and Nutrition Education [address] [place] [address] Javier Espinosa DO [address] [place] [address] Madelaine Schulz LD 03/27/2025 3:00 PM EDT Office Visit [facility] Internal Medicine - Family Medicine [address] [place] [address] Javier Espinosa DO [address] [place] [address] documented as of this encounter Visit Diagnoses Not on filedocumented in this encounter Additional Health Concerns Assessment Noted Time PHQ-9 Depression Total Score: 0 10/25/19 25 4:17 PM EDT documented as of this encounter Care Teams Saddle Stitching Machine Operator Relationship Specialty Start Date End Date Javier Espinosa DO [address] [place] [address] PCP - General Internal Medicine 04/13/24 documented as of this encounter
--- OUTSIDE RECORDS SUMMARY | 2025-02-14 13:29 | XMS_ITS | Encounter Summary ---
Author Organization [employer] [facility] tem Address [facility] [place][id number] [address] [place] [address] Care Team Providers Care Rivet Sticker Name Role Phone Javier Espinosa Primary Care Provider [phone] Encounter Details Date Type Department Care Team (Late st Contact Info) Description 06/15/2023 Telephone [facility] Internal Medicine - Family Medicine [address] [facility] [place] [place] [address] Katherine Pierson CMA Social History Tobacco Use [...] Pierson CMA - 06/15/2023 5:24 PM EST [facility] pharmacy called for pt , they [...] Message noted. Rx corrected and sent to [facility] * Telephone Encounter - Katherine Pierson CMA - 06/15/2023 5:24 PM EST Thank you documented in this encounter Plan of Treatment Upcoming Encounters Date Type Department Care Team (Late st Contact Info) Description 03/08/2025 1:00 PM EDT Support Visit [facility] - Diabetes and Nutrition Education [address] [place] [address] Javier Espinosa DO [address] [place] [address] Madelaine Schulz LD 03/27/2025 3:00 PM EDT Office Visit [facility]icians Internal Medicine - Family Medicine [address] [place] [address] Javier Espinosa DO [address] [place] [address] documented as of this encounter Visit Diagnoses Not on filedocumented in this encounter Additional Health Concerns Infection Onset Date Last Indicated Resolved Time Respiratory Rule-Out 08/28/2024 08/28/2024 025 11:18 AM EDT Assessment Noted Time PHQ-9 Depression Total Score: 0 04/26/20 23 2:29 PM EST documented as of this encounter Care Teams Rivet Sticker Relationship Specialty Start Date End Date Javier Espinosa DO [address] [place] [address] PCP - General Internal Medicine 04/13/24 documented as of this encounter
--- OUTSIDE RECORDS SUMMARY | 2025-02-14 13:29 | XMS_ITS | Encounter Summary ---
Author Organization [facility] tem Address [facility][id number] [address] [place] [address] Care Team Providers Care Ukrainian Folk Arts Instructor Name Role Phone Javier Espinosa DO Primary Care Provider Encounter Details Date Type Department Care Team (Late st Contact Info) Description 02/06/2025 Orders Only [facility] Internal Medicine - Family Medicine [address] [place] [address] Javier Espinosa DO [address] [place] [address] Type 2 diabetes mellitus with diabetic polyneuropathy, without long-term current use of insulin ([facility]) (Primary Dx) Social History Tobacco Use Types [...] 1:00 PM EDT Support Visit [facility] - Diabetes and Nutrition Education [address] [place] [address] Javier Espinosa, [address] [place] [address] Madelaine Schulz LD 03/27/2025 3:00 PM EDT Office Visit [facility] Internal Medicine - Family Medicine [address] [place] [address] Javier Espinosa DO [address] [place] [address] documented as of this encounter Visit Diagnoses Diagnosis Type 2 diabetes mellitus with diabetic polyneuropathy, without long-term current use of insulin ([facility])- Primary documented in this encounter Additional Health Concerns Assessment Noted Time PHQ-9 Depression Total Score: 0 02/01/20 25 4:28 PM EDT documented as of this encounter Care Teams Ukrainian Folk Arts Instructor Relationship Specialty Start Date End Date Javier Espinosa DO [address] [place] [address] PCP - General Internal Medicine 04/13/24 documented as of this encounter
--- OUTSIDE RECORDS SUMMARY | 2025-02-14 13:29 | XMS_ITS | Encounter Summary ---
Author Organization [facility] tem Address [id number] [address] [place] [address] Care Team Providers Care Rn Perioperative Name Role Phone Javier Espinosa DO Primary Care Provider [phone] Reason for Visit * Reason Comments Med Refill Encounter Details Date Type Department Care Team (Late st Contact Info) Description 09/12/2023 Refill [facility] Internal Medicine - Family Medicine [address] [place] [address] Javier Espinosa DO [address] [place] [address] Laryngopharyngeal reflux (LPR) Social History Tobacco Use [...] Description 03/08/2025 1:00 PM EDT Support Visit [facility] - Diabetes and Nutrition Education [address] [place] [address] Javier Espinosa DO [address] [facility] [place] [address] Madelaine Schulz LD 03/27/2025 3:00 PM EDT Office Visit [facility] Internal Medicine - Family Medicine [address] [place] [address] Javier Espinosa DO [address] [place] [address] documented as of this encounter Visit Diagnoses Diagnosis Laryngopharyngeal reflux (LPR) documented in this encounter Additional Health Concerns Infection Onset Date Last Indicated Resolved Time Respiratory Rule-Out 08/28/2024 08/28/2024 025 11:18 AM EDT Assessment Noted Time PHQ-9 Depression Total Score: 0 08/17/19 8:10 AM EST documented as of this encounter Care Teams Rn Perioperative Relationship Specialty Start Date End Date Javier Espinosa DO [address] [facility] [place] [address] PCP - General Internal Medicine 04/13/24 documented as of this encounter
--- OUTSIDE RECORDS SUMMARY | 2025-02-14 13:29 | XMS_ITS | Encounter Summary ---
Author Organization [facility] tem Address [facility] [place]-[id number] [address] [place] [address] Care Team Providers Care Phlebotomy Supervisor Name Role Phone Javier Espinosa DO Primary Care Provider [phone] Encounter Details Date Type Department Care Team (Late st Contact Info) Description 12/28/2023 Orders Only [facility] Internal Medicine - Family Medicine [address] [place] [address] Javier Espinosa DO [address] [place] [address] Hypothyroidism, unspecified type (Primary Dx) Social History [...] Description 03/08/2025 1:00 PM EDT Support Visit [facility] - Diabetes and Nutrition Education [address] [place] [address] Javier Espinosa, DO [address] [place] [address] Zeus MadelaineSONIA 03/27/2025 3:00 PM EDT Office Visit [facility] Internal Medicine - Family Medicine [address] [place] [address] Javire Espinosa DO [address] [place] [address] documented as of this encounter Visit Diagnoses Diagnosis Hypothyroidism, unspecified type- Primary documented in this encounter Additional Health Concerns Infection Onset Date Last Indicated Resolved Time Respiratory Rule-Out 08/28/2024 08/28/2024 025 11:18 AM EDT Assessment Noted Time PHQ-9 Depression Total Score: 0 12/27/19 24 2:36 PM EDT documented as of this encounter Care Teams Phlebotomy Supervisor Relationship Specialty Start Date End Date Javier Espinosa DO [address] [place] [address] PCP - General Internal Medicine 04/13/24 documented as of this encounter
--- OUTSIDE RECORDS SUMMARY | 2025-02-14 13:29 | XMS_ITS | Encounter Summary ---
Author Organization [facility] tem Address [facility] [id number] [address] [place] [address] Care Team Providers Care Guillotine Trimmer Name Role Phone Javier Espinosa DO Primary Care Provider [phone] Reason for Referral * Physical Therapy (Routine) - Closed Specialty Diagnoses / Procedures Referred By Contac t Referred To Contact Rehabilitation Diagnoses Cervical spondylosis without myelopathy Javier Espinosa DO [address] [place] [address] Phone: tel: fax: [facility] [address] [place] [address] Phone: tel: fax: Referral ID Status Reason Start Date Expiration Date V isits Requested Visits Authorized [id number] Closed Specialty Services Required 08/23/2023 08/22/2024 12 12 Encounter Details Date Type Department Care Team (Late st Contact Info) Description 08/23/2023 Orders Only [facility] Internal Medicine - Family Medicine [address] [place] [address] Javier Espinosa DO [address] [place] [address] Cervical spondylosis without myelopathy (Primary Dx) Social [...] Description 03/08/2025 1:00 PM EDT Support Visit [facility] - Diabetes and Nutrition Education [address] [place] [address] Javier Espinosa DO [address] [place] [address] Madelaine Schulz LD 03/27/2025 3:00 PM EDT Office Visit [facility]icians Internal Medicine - Family Medicine [address] [place] [address] Javier Espinosa DO [address] [place] [address] Scheduled Referrals Name Type Priority Associated Diagnoses [...] documented as of this encounter Care Teams Guillotine Trimmer Relationship Specialty Start Date End Date Javier Espinosa DO [address] [place] [id number] PCP - General Internal Medicine 04/13/24 documented as of this encounter
--- NOTE | 2025-02-14 13:50 | PM.CN ---
Consult Note: HPI Data of Consult Patient: known to practice within the last 3 years Requesting Physician: Rima Abraham NP Primary Care Provider: ALEC VANESSA Consult Narrative Reason for consult: neck pain Narrative: Onesimo Caldwell a pleasant 69 year old male presents for evaluation of neck pain. recently underwent left C5-6 C6-7 TFESI with significant ongoing relief, pain 1-2/10 increasing to 2-3/10. MERY 13%. pt utilizing motrin and tylenol prn with benefit without side effects. denies fall/injury since last visit. cc:: CC: Rima Abraham NP Meds Home Medications and Allergies Home Medications ?Medication ?Instructions ?Recorded ?Confirmed ?Type fluoxetine 40 mg capsule (Prozac) 40 mg PO QAM 11/29/24 02/05/25 History levothyroxine 75 mcg capsule 75 mcg PO DAILY 11/29/24 02/05/25 History lisinopril 10 mg tablet 10 mg PO DAILY 11/29/24 02/05/25 History metformin 500 mg tablet 500 mg PO BID 11/29/24 02/05/25 History omeprazole 20 mg capsule,delayed 20 mg PO DAILY 11/29/24 02/05/25 History release pravastatin 40 mg tablet 40 mg PO DAILY 11/29/24 02/05/25 History Allergies Allergy/AdvReac Type Severity Reaction Status Date / Time metaxalone (From Skelaxin) Allergy Unknown Unknown Verified 02/05/25 10:12 pioglitazone Allergy Unknown Unknown Verified 02/05/25 10:12 tizanidine Allergy Unknown Unknown Verified 02/05/25 10:12 Exam Neck & C-Spine Cervical spine: cervical ROM normal and normal cervical lordosis; no pain with cervical ROM and no cervical spine tenderness Other: negative spurlings strength 5/5 in BUE Back & Pelvis Thoracic spine/upper back: thoracic ROM normal; no pain with ROM and no thoracic spinal tenderness Lumbar spine/lower back: no pain with ROM and no lumbar spinal tenderness Other: no increased pain with facet loading or palpation strength 5/5 in BLE sensation intact Assessment and Plan Assessment and Plan (1) Cervical spinal stenosis: (2) Cervical radiculopathy: (3) Cervical spondylosis: (4) Myalgia: Plan restart baclofen 5-10mg bid prn pain/spasms continue HEP as tolerated continue tylenol and motrin PRN f/u 3 months, sooner if needed
== END 2025-02-14 13:26 | disposition home or self-care (01) ==
LOC: PM 13:26
PROVIDERS: PCP Internal Medicine; Visit Provider Nurse Practitioner
DX: M48.02 Spinal stenosis, cervical region (principal); M54.12 Radiculopathy, cervical region; M47.812 Spondylosis without myelopathy or radiculopathy, cervical region; M79.18 Myalgia, other site
CPT/HCPCS: G0463

== ENCOUNTER 2025-04-11 14:34 | Outpatient (OUT) | payer MEDICARE, OTHER, SELFPAY ==
--- NOTE | 2025-04-11 14:59 | PM.CN ---
Consult Note: HPI Data of Consult Patient: known to practice within the last 3 years Requesting Physician: Rima Abraham NP Primary Care Provider: ALEC VANESSA Consult Narrative Reason for consult: neck pain Narrative: Onesimo Caldwell a pleasant 70 year old male presents for evaluation of neck pain. pt has had chronic neck and LUE pain > 12 months unresponsive to > 6 weeks of PT/HEP, heat, ice, tylenol, NSAIDs. cervical xray and MRI consistent with listhesis at C3-4, moderate DDD, and moderate to severe central/foraminal narrowing C3-6. Pt reports prior left C5-6 C6-7 TFESI provided significant relief for 3 months, noticing increasing pain and weakness to LUE over the last few weeks. Pain today 4/10 increasing to 7/10 with twsiting, lifting, bending. notes improvement in pain with sitting, lying, and neck support. utilizing advil, baclofen prn with benefit denies side effects. cc:: CC: Rima Abraham NP Meds Home Medications and Allergies Home Medications ?Medication ?Instructions ?Recorded ?Confirmed ?Type fluoxetine 40 mg capsule (Prozac) 40 mg PO QAM 11/29/24 02/05/25 History levothyroxine 75 mcg capsule 75 mcg PO DAILY 11/29/24 02/05/25 History lisinopril 10 mg tablet 10 mg PO DAILY 11/29/24 02/05/25 History metformin 500 mg tablet 500 mg PO BID 11/29/24 02/05/25 History omeprazole 20 mg capsule,delayed 20 mg PO DAILY 11/29/24 02/05/25 History release pravastatin 40 mg tablet 40 mg PO DAILY 11/29/24 02/05/25 History baclofen 10 mg tablet See Rx Instructions .Route 02/14/25 Rx .COMPLEX PRN muscle spasm #60 tabs Allergies Allergy/AdvReac Type Severity Reaction Status Date / Time metaxalone (From Skelaxin) Allergy Unknown Unknown Verified 02/05/25 10:12 pioglitazone Allergy Unknown Unknown Verified 02/05/25 10:12 tizanidine Allergy Unknown Unknown Verified 02/05/25 10:12 Exam Constitutional Documenting provider has reviewed patient's vital signs: yes Common normals: no apparent distress, oriented x3, healthy appearing, alert and well nourished General appearance: cooperative HENMT Common normals: normocephalic, hearing grossly normal bilaterally and moist oral mucous membranes Head and scalp: normocephalic Eye Common normals: PERRL Pupil: PERRL Neck & C-Spine Common normals: full ROM General: normal visual inspection Cervical spine: cervical ROM abnormal, pain with cervical ROM and cervical spine tenderness Other: positive spurlings strength 4/5 in LUE and 5/5 in RUE decreased sensation left C5,6,7 Chest Common normals: inspection of chest normal Respiratory Common normals: normal respiratory effort, no retractions and no use of accessory muscles Back & Pelvis Thoracic spine/upper back: thoracic ROM normal; no pain with ROM and no thoracic spinal tenderness Lumbar spine/lower back: no pain with ROM and no lumbar spinal tenderness Other: no increased pain with facet loading or palpation strength 5/5 in BLE sensation intact Neuro Common normals: oriented x3 Sensorium/orientation: alert Psych Common normals: mental status grossly normal, thought process normal, cooperative, affect normal, speech normal and activity/motor behavior normal Speech: normal speech Thought process: normal thought process Results Additional Findings Additional findings: If on a controlled substance or opioids, I have checked an [place] report on this patient and there are no aberrancies noted in the prescribing history.??If on a controlled substance or opioid a drug screen was completed and reviewed within the last year, and if there has not been a drug screen completed we ordered one today to monitor higher risk, state monitored pain medication use. As part of providing excellent, safe, comprehensive care, the following was completed at our patient's visit: 1. A medication reconciliation and review to ensure accurate knowledge of current/active medications, including asking our patients to inform us about any puel-nog-eyahyiz medications or herbal remedies/nutritional supplements/alternative remedies. 2. A review to specifically ensure our patients have had annual screening for screening for depression, screening for tobacco use, and screening for unhealthy alcohol use. For concerning screenings had a discussion with the patient, provided patient education, and recommended follow-up with primary care provider when appropriate. If patient noted with a risk of falling, they received education on strength, gait, and balance training to prevent future risk of falling. Portions of this note may have been carried over from the previous visit and updated as appropriate. Please note this office utilizes paper charting in addition to the electronic medical record. A list of current medications, vitals, and PMH is available there as the clinical staff outside of myself do not have access to [employer] charting during the clinic day operations. As part of providing quality comprehensive care the current medications, vitals, and PMH were reviewed in the paper chart. Assessment and Plan Assessment and Plan (1) Cervical spinal stenosis: Assessment and Plan: The patient has had over 3 months of moderate to severe neck and LUE pain with functional impairment and inadequate response to conservative care including NSAIDS (unless there are contraindication such as concurrent blood thinners), multiple oral or topical pain medications, and home exercise program/physical therapy.? Patient has completed >6 weeks of guided home exercise program and/or formal physical therapy program without relief of their symptoms.? The Oswestry Disability Index was completed, and the patient scored a 23%.? (2) Cervical radiculopathy: (3) Cervical spondylosis: (4) Myalgia: Plan pt noting intermittent pain radiating into base of skull, bilateral jaw, and difficulty chewing/swallowing. this is happening sparingly, does not note dizziness, drowsiness, lightheadedness. will refer to NS for evaluation/establish care based on prior cervical xray and MRI results repeat left C5-6 C6-7 TFESI under fluoroscopy for cervical radiculopathy and stenosis. prior injection provided at least 50% improvement for 3 months continue baclofen 5-10mg BID PRN pain/spasms f/u 2 weeks after injection
== END 2025-04-11 14:35 | disposition home or self-care (01) ==
LOC: PM 14:34
PROVIDERS: PCP Internal Medicine; Visit Provider Nurse Practitioner
DX: M48.02 Spinal stenosis, cervical region (principal); M54.12 Radiculopathy, cervical region; M47.812 Spondylosis without myelopathy or radiculopathy, cervical region; M79.10 Myalgia, unspecified site
CPT/HCPCS: G0463

== ENCOUNTER 2025-04-16 09:23 | Day surgery (SDC) | payer MEDICARE, OTHER, SELFPAY ==
--- OUTSIDE RECORDS SUMMARY | 2025-04-03 19:31 | XMS_ITS | Encounter Summary ---
Author Organization [facility] [address] [facility] tem Address [id number] [address] [place] [address] Care Team Providers Care Cap Lining Machine Operator Name Role Phone JesúsJavier DO Primary Care Provider [phone] Reason for Visit * ReasonCommentsShoulder Pain Encounter Details DateTypeDepartmentCare Team (Latest Contact Info)Cvkpvqjnsgv85/14/2025 7:31 PM EDT - 04/03/2025 8:34 PM EDTEmergency [facility] [address] [place] [id number] Chronic right shoulder pain (Primary Dx) Discharge Disposition: Home Social History Tobacco UseTypesPacks/DayYears UsedDateSmoking Tobacco: FormerCigarettes1.520 1981 - 2001Smokeless Tobacco: Never Comments:Quit over 20 years ago Alcohol UseStandard Drinks/WeekCommentsNot Currently0 (1 standard drink = 0.6 oz pure alcohol)PHQ-2AnswerDate RecordedTotal Fiwhw4045ChildcareAnswerDate BxbzgstsDaviiotgkOwvgbyq72/12/2019EmploymentAnswerDate RecordedEmploymentUnknown 11/30/2018Hunger ScreeningAnswerDate RecordedWithin the past 12 months we worried whether our food would run out before we got money to buy more.Never True04/03/2025Within the past 12 months the food we bought just didn't last and we didn't have money to get more.Never True04/03/2025Purpose - LifeAnswerDate RecordedPurpose and direction in juisDhhvvvq04/11/2021ex and Gender Information ValueDate RecordedSex Assigned at BirthNot on fileLegal AxyQmzy4901/24/2015 11:29 AM EDTGender IdentityNot on fileSexual OrientationNot on filedocumented as of this encounter Last Filed Vital Signs Vital SignReadingTime TakenCommentsBlood Lehioirg755/7410 8:32 PM EDT Motkd232304/03/2025 8:32 PM TEAFojdjiioohq31.4 ??C (97.6 ??F)04/03/2025 7:38 PM EDTRespiratory Wfbl8259 8:32 PM EDTOxygen Ldsvssdoqz04%04/03/2025 8:32 PM EDTInhaled Oxygen Concentration--Ebndwh48.7 kg (200 lb)04/03/2025 7:38 PM EDT Duguhh930.8 cm (5' 10 )04/03/2025 7:38 PM EDTBody Mass Index28.710 7:38 PM EDTdocumented in this encounter Discharge Instructions * Discharge Instructions* TAM Cowan - 04/03/2025 8:25 PM EDT Thank you for choosing us for your medical care. We know you have a choice, and we appreciate you choosing us for your medical concerns! You may receive a survey from the hospital about your visit. We very much appreciate your comments and concerns. Please read all medication insert instructions and side effects when dispensed by the pharmacy. Every medication has side effects, and you may experience any of them. Please call the emergency room with any questions or concerns you have. Please call your doctor for outpatient follow up and recommendations. The emergency room cannot replace ongoing care, and it is important for your personal physician to evaluate you and monitor your health. Return to the ER for increased pain, fever > 101.5, vomiting twice, or any concern you deem emergent. Laurita Stack CNP documented in this encounter Medications at Time of Discharge MedicationSigDispense QuantityRefillsLast FilledStart DateEnd Date albuterol (PROVENTIL,VENTOLIN) 2.5 mg /3 mL (0.083 %) nebulizer solution Indications:Acute exacerbation of chronic obstructive pulmonary disease (COPD) ([facility])Inhale 3 mL (2.5 mg total) by nebulization 4 (four) times a day. 75 mL artificial tears,hypromellose, (ISOPTO TEARS) 0.5 % ophthalmic solution Administer 1 drop to both eyes as needed (15). 15 mL 07/18/2022 azelastine (ASTELIN) 137 mcg (0.1 %) nasal spray Indications:Seasonal allergic rhinitis, unspecified triggerOne spray in each nostril as needed for congestion or nose pain 30 mL blood sugar diagnostic (TRUE METRIX GLUCOSE TEST STRIP) strip Indications:Type 2 diabetes mellitus with diabetic polyneuropathy, without long- term current use of insulin ([facility])1 strip by other route every morning before breakfast. 100 strip blood-glucose meter (TRUE METRIX GLUCOSE METER) [facility] Indications:Type 2 diabetes mellitus with diabetic polyneuropathy, without long- term current use of insulin ([facility])1 Device by miscellaneous route in the morning. 1 each 02/06/2025 cyanocobalamin 1000 MCG tablet Indications:B12 deficiencyTAKE 1 TABLET BY MOUTH EVERY MORNING 90 tablet FLUoxetine (PROzac) 40 mg capsule Indications:Obsessive-compulsive disorder, unspecified typeTAKE 1 CAPSULE BY MOUTH EVERY MORNING 90 capsule 03/05/2025 gvezzdinxmz-yiuxguigi-jfkppefh (TRELEGY ELLIPTA) 200-62.5-25 mcg blister with device Indications:Chronic obstructive pulmonary disease, unspecified COPD type ([facility])Inhale 1 puff in the morning. 180 each hydrocortisone (HYTONE) 1 % ointment 12/16/2023 ibuprofen (MOTRIN) 800 mg tablet Take 1 tablet (800 mg total) by mouth every 6 (six) hours as needed for pain. 21 tablet 04/13/2024 lancets [facility] Indications:Type 2 diabetes mellitus with diabetic polyneuropathy, without long- term current use of insulin ([facility])1 Lancet by miscellaneous route in the morning. 100 each lisinopriL (PRINIVIL,ZESTRIL) 10 mg tablet Indications:Essential hypertensionTAKE 1 TABLET BY MOUTH EVERY MORNING 90 tablet 01/20/2025 metroNIDAZOLE (MetrogeL) 1 % gel Indications:Acne rosaceaApply 1 Application topically in the morning. 60 g 05/09/2024 nystatin (MYCOSTATIN) powder Indications:Dea rash of groinApply 1 Application topically in the morning and 1 Application at noon and 1 Application in the evening and 1 Application before bedtime. 30 g 01/31/2025 pravastatin (PRAVACHOL) 40 mg tablet Indications:Hyperlipidemia, unspecified hyperlipidemia typeTAKE 1 TABLET BY MOUTH EVERY MORNING 90 tablet psyllium husk (METAMUCIL ORAL) in the morning. levothyroxine (SYNTHROID, LEVOTHROID) 75 MCG tablet Indications:Hypothyroidism, unspecified typeTAKE 1 TABLET BY MOUTH EVERY MORNING ON AN EMPTY STOMACH SIX DAYS PER WEEK 77 tablet metFORMIN XR (GLUCOPHAGE XR) 500 mg 24 hr tablet Indications:Type 2 diabetes mellitus with diabetic polyneuropathy, without long- term current use of insulin ([facility])TAKE 1 TABLET BY MOUTH EVERY MORNING AND 1 TABLET BEFORE BEDTIME 180 tablet documented as of this encounter ED Notes * Laurita Stack APRN-JING - 04/03/2025 7:40 PM EDT Images from the original note were not included. [facility] - EMERGENCY Pt Name: Onesimo Caldwell Birthdate: 1955 Chief Complaint: Chief Complaint Patient presents with Shoulder Pain History of Present Illness: Onesimo Caldwell is a 70 year old male that present to the ED with complaint of neck and shoulder pain.Patient has chronic neck and shoulder pain. He follows with his family doctor and pain management. Today he states his right arm as more sore than normal in his looking to get an x-ray. He recently had an MRI of the neck which showed spondylitis. He states he has a follow up with his family doctor this week and pain management next week. History provided by: Patient warehouse pricing and inventory clerk used: No Past Medical History: Past Medical History: Diagnosis Date Anemia Arthritis Colon cancer ([facility]) COPD (chronic obstructive pulmonary disease) ([facility]) Diabetes mellitus ([facility]) takes metformin Diabetes mellitus type 2, controlled ([facility]) GERD (gastroesophageal reflux disease) Hyperlipidemia Hypertension takes medication Hypothyroid Migraine OCD (obsessive compulsive disorder) Tourette's Visual impairment Past Surgical History: Past Surgical History: Procedure Laterality Date BIOPSY / EXCISION / DISSECTION AXILLARY NODE Left Lateral 12/17/2023 CHOLECYSTECTOMY COLONOSCOPY N/A 09/28/2022 Performed by Dawood Hitchcock DO at [facility] COLONOSCOPY N/A 05/18/2022 Performed by Dawood Hitchcock DO at [facility] COLOSTOMY ESOPHAGOGASTRODUODENOSCOPY N/A 05/18/2022 Performed by Dawood Hitchcock DO at [facility] HIATAL HERNIA REPAIR LAPAROSCOPIC COLON RESECTION Family History: Family History Problem Relation Age of Onset Cancer Mother Heart disease Father Heart disease Sister Atrial fibrillation Sister Hypertension Sister Hypertension Brother Social History: Social History Socioeconomic History Marital status: Tobacco Use Smoking status: Former Current packs/day: 0.00 Average packs/day: 1.5 packs/day for 20.0 years (30.0 ttl pk-yrs) Types: Cigarettes Start date: 1981 Quit date: 2002 Years since quittin.8 Smokeless tobacco: Never Tobacco comments: Quit over 20 years ago Vaping Use Vaping status: Never Used Substance and Sexual Activity Alcohol use: Not Currently Drug use: Not Currently Sexual activity: Not Currently Social Drivers of Health Food Insecurity: No Food Insecurity (04/03/2025) Hunger Screening Food Insecurity - Worry: Never True Food Insecurity - Inability: Never True Review of Systems: Review of Systems Constitutional: Negative for chills and fever. HENT: Negative for ear pain. Eyes: Negative for pain. Respiratory: Negative for shortness of breath. Cardiovascular: Negative for chest pain/discomfort. Gastrointestinal: Negative for abdominal pain, diarrhea, nausea and vomiting. Genitourinary: Negative for flank pain. Musculoskeletal: Positive for neck pain. Negative for back pain. Right shoulder pain Skin: Negative for rash. Neurological: Negative for headaches. Psychiatric/Behavioral: Negative for sleep disturbance and suicidal ideas. Physical Exam: ED Triage Vitals [04/03/251937] Temp Heart Rate Resp BP SpO2 36.4 ??C (97.6 ??F) 67 16 129/71 96 % Temp Source Heart Rate Source Patient Position BP Location FiO2 (%) Oral Monitor Sitting Left arm -- Vitals: 04/03/251937 BP: 129/71 Temp: 36.4 ??C (97.6 ??F) TempSrc: Oral Pulse: 67 Resp: 16 SpO2: 96% Height: 177.8 cm (5' 10 ) Weight: 90.7 kg (200 lb) Physical Exam Vitals reviewed. HENT: Head: Normocephalic and atraumatic. Eyes: Conjunctiva/sclera: Conjunctivae normal. Musculoskeletal: General: Normal range of motion. Right shoulder: Tenderness present. No swelling or deformity. Cervical back: Normal range of motion and neck supple. Pain with movement present. Skin: General: Skin is warm and dry. Neurological: General: No focal deficit present. Mental Status: He is alert and oriented to person, place, and time. GCS: GCS eye subscore is 4. GCS verbal subscore is 5. GCS motor subscore is 6. Procedure: Procedures Re-evaluation: 2024 - x-ray unremarkable for any acute finding. Patient given 1 time dose of oral Toradol and discharged to follow up with pain management as this pain is chronic and ongoing for years. Patient is agreeable to this plan of care and discharge at this time Medical Decision Making Plan of care - x-ray, 1 time dose of Toradol Amount and/or Complexity of Data Reviewed Radiology: ordered. Decision-making details documented in ED Course. Risk Prescription drug management. ED Course: Clinical Impressions as of 04/03/252027 Chronic right shoulder pain . ED Disposition ED Disposition Discharge Date/Time WedApr 03, 2025 8:27 PM Comment At the time of discharge, the plan has been discussed with the patient regarding the diagnosis and prognosis. All questions have been answered. Verbal discharge instructions were discussed with the patient. The patient has been advised to follow up w ith their Primary Care Provider within 1 week. The patient was also instructed to return to the ED if their symptoms change, worsen, new symptoms arise or if they have any additional concerns. JESSY Supervision Only Supervising Physician was Dr. Estefani Lisa Please note that portions of this note were completed with a voice recognition program. Efforts were made to edit the dictations but occasionally words are mis-transcribed. TAM Cowan 04/03/251947 TAM Cowan 04/03/252027 * Odilia Palmer RN - 04/03/2025 7:37 PM EDT Right shoulder pain, for a couple years . documented in this encounter Plan of Treatment DateTypeDepartmentCare Team (Latest Contact Info)Hiwmsxvvymg25/06/2025 2:00 PM ESTOffice Visit [facility] [address] [place] [address] Javier Espinosa DO [address] [place] [address] documented as of this encounter Procedures Procedure NamePriorityDate/TimeAssociated DiagnosisCommentsXR SHOULDER RT MIN 2 OFPBSTK63/14/2025 7:57 PM EDT documented in this encounter Results * X-ray shoulder right minimum 2 views (04/03/2025 7:57 PM EDT)Anatomical Region LateralityModalityMSK, Upper Extremities, ShoulderRightComputed Radiography Specimen (Source)Anatomical Location / LateralityCollection Method / Volume Collection TimeReceived Time04/03/2025 8:21 PM EDT Narrative 04/03/2025 8:21 PM EDT CLINICAL INFORMATION: pain TECHNIQUE: XR SHOULDER RT MIN 2 VWS 3 views right shoulder were obtained. Acromioclavicular degenerative changes noted with subacromialspurring. Humeral head shows normal articulation with the glenoid. No fracture or dislocation. IMPRESSION: AC joint degenerative changes. Finalized by Shakeel Varela MD on 04/03/2025 8:21 PM Procedure Note Shakeel Varela MD - 04/03/2025 CLINICAL INFORMATION: pain TECHNIQUE: XR SHOULDER RT MIN 2 VWS 3 views right shoulder were obtained. Acromioclavicular degenerativechanges noted with subacromial spurring. Humeral head shows normalarticulation with the glenoid. No fracture or dislocation. IMPRESSION: AC joint degenerative changes. Finalized by Shakeel Varela MD on 04/03/2025 8:21 PM Authorizing ProviderResult TypeResult StatusAmber Sreekanth POLICE SURGEON-CNPIMG DIAGNOSTIC IMAGING ORDERABLESFinal Result documented in this encounter Visit Diagnoses Diagnosis Chronic right shoulder pain- Primary Pain in joint, shoulder region documented in this encounter Administered Medications Medication OrderMAR ActionAction DateDoseRateSite ketorolac (TORADOL) tablet 10 mg 10 mg, oral, Once, On Wed04/03/25 at 1941, For 1 dose, Look-alike/sound-alike medication - verify indication for use. Duration of therapy is not to exceed 5 days. Maximum recommended dose = 40mg/24 hours. Given04/03/2025 8:16 PM EDT10 mgdocumented in this encounter Active and Recently Administered Medications Times are shown in EDT.Medication Order/ ketorolac (TORADOL) tablet 10 mg (COMPLETED) 10 mg, oral, Once, On Wed04/03/25 at 1941, For 1 dose, Look-alike/sound-alike medication - verify indication for use. Duration of therapy is not to exceed 5 days. Maximum recommended dose = 40mg/24 hours. * 2015 (Given - Provider: Odilia Palmer RN) documented in this encounter Additional Health Concerns AssessmentNoted TimePHQ-9 Depression Total Score: 4:28 PM EDT documented as of this encounter Care Teams Team MemberRelationshipSpecialtyStart DateEnd Date Javier Espinosa DO [address] [place] [address] PCP - GeneralInternal Pvkzvink84/14/25documented as of this encounter
--- OUTSIDE RECORDS SUMMARY | 2025-04-16 09:26 | XMS_ITS | Encounter Summary ---
Author Organization [facility] [employer] [facility] tem Address [facility]-[id number] [address] [place] [address] Care Team Providers Care Publication Distributor Name Role Phone Javier Espinosa DO Primary Care Provider [phone] Reason for Visit * ReasonCommentsMed Refill Encounter Details DateTypeDepartmentCare Team (Latest Contact Info)Ceecnglnhfq87/19/2025Refill [facility] [address] [place] [phone] Javier Espinosa DO [address] [place] [id number] Hypothyroidism, unspecified type Social History Tobacco UseTypesPacks/DayYears UsedDateSmoking Tobacco: FormerCigarettes1.520 1981 - 2001Smokeless Tobacco: Never Comments:Quit over 20 years ago Alcohol UseStandard Drinks/WeekCommentsNot Currently0 (1 standard drink = 0.6 oz pure alcohol)PHQ-2AnswerDate RecordedTotal [id number] VxqoithrAqarfcgtzYvmdzxy43/12/2019EmploymentAnswerDate RecordedEmploymentUnknown 11/30/2018Hunger ScreeningAnswerDate RecordedWithin the past 12 months we worried whether our food would run out before we got money to buy more.Never True04/03/2025Within the past 12 months the food we bought just didn't last and we didn't have money to get more.Never True04/03/2025Purpose - LifeAnswerDate RecordedPurpose and direction in elexMtgkjwu15/11/2021ex and Gender Information ValueDate RecordedSex Assigned at BirthNot on fileLegal UubDxoe4701/24/2015 11:29 AM EDTGender IdentityNot on fileSexual OrientationNot on filedocumented as of this encounter Plan of Treatment DateTypeDepartmentCare Team (Latest Contact Info)Jemtafeawkm43/06/2025 2:00 PM ESTOffice Visit [facility] [address] [place] [address] Javier Espinosa DO [address] [place] [address] documented as of this encounter Visit Diagnoses Diagnosis Hypothyroidism, unspecified type documented in this encounter Additional Health Concerns AssessmentNoted TimePHQ-9 Depression Total Score: 4:28 PM EDT documented as of this encounter Care Teams Team MemberRelationshipSpecialtyStart DateEnd Date Javier Espinosa DO [address] [place] [address] PCP - GeneralInternal Ipifgiud56/14/25documented as of this encounter
--- OUTSIDE RECORDS SUMMARY | 2025-04-16 09:26 | XMS_ITS | Encounter Summary ---
Author Organization [facility] [employer] [facility] tem Address [facility]-[id number] [address] [place] [address] Care Team Providers Care Probation And Patrol Agent Name Role Phone Javier Espinosa DO Primary Care Provider [phone] Reason for Visit * ReasonCommentsMed Refill Encounter Details DateTypeDepartmentCare Team (Latest Contact Info)Beaoagohdht71/17/2025Refill [facility] Internal Medicine - Family Medicine [address] [place] [phone] Javier Espinosa DO [address] [place] [address] Type 2 diabetes mellitus with diabetic polyneuropathy, without long-term current use of insulin ([facility]) Social History Tobacco UseTypesPacks/DayYears UsedDateSmoking Tobacco: FormerCigarettes1.520 1981 - 2001Smokeless Tobacco: Never Comments:Quit over 20 years ago Alcohol UseStandard Drinks/WeekCommentsNot Currently0 (1 standard drink = 0.6 oz pure alcohol)PHQ-2AnswerDate RecordedTotal [id number] VwnregmoQygzajmskTtwshuk02/12/2019EmploymentAnswerDate RecordedEmploymentUnknown 11/30/2018Hunger ScreeningAnswerDate RecordedWithin the past 12 months we worried whether our food would run out before we got money to buy more.Never True04/03/2025Within the past 12 months the food we bought just didn't last and we didn't have money to get more.Never True04/03/2025Purpose - LifeAnswerDate RecordedPurpose and direction in mmrwShlpzas06/11/2021ex and Gender Information ValueDate RecordedSex Assigned at BirthNot on fileLegal VjwBzfp4901/24/2015 11:29 AM EDTGender IdentityNot on fileSexual OrientationNot on filedocumented as of this encounter Plan of Treatment DateTypeDepartmentCare Team (Latest Contact Info)Saopmyxnksc61/06/2025 2:00 PM ESTOffice Visit [facility] [address] [place] [address] Javier Espinosa DO [address] [place] [address] documented as of this encounter Visit Diagnoses Diagnosis Type 2 diabetes mellitus with diabetic polyneuropathy, without long-term current use of insulin ([facility]) documented in this encounter Additional Health Concerns AssessmentNoted TimePHQ-9 Depression Total Score: 4:28 PM EDT documented as of this encounter Care Teams Team MemberRelationshipSpecialtyStart DateEnd Date Javier Espinosa DO [address] [place] [address] PCP - GeneralInternal Tephytsy37/14/25documented as of this encounter
--- OUTSIDE RECORDS SUMMARY | 2025-04-16 09:27 | XMS_ITS | Encounter Summary ---
Author Organization [facility] tem Address [facility]-[id number] [address] [place] [address] Care Team Providers Care Ram Press Operator Name Role Phone Javier Espinosa DO Primary Care Provider [phone] Encounter Details DateTypeDepartmentCare Team (Latest Contact Info)Cymgwejcqzd34/22/2025Orders Only [facility] [address] [place] [phone] Ref Prov, [place] [address] Social History Tobacco UseTypesPacks/DayYears UsedDateSmoking Tobacco: FormerCigarettes1.520 1981 - 2001Smokeless Tobacco: Never Comments:Quit over 20 years ago Alcohol UseStandard Drinks/WeekCommentsNot Currently0 (1 standard drink = 0.6 oz pure alcohol)PHQ-2AnswerDate RecordedTotal [id number]te SutsbwhiMzdlceghdWbxrssn50/12/2019EmploymentAnswerDate RecordedEmploymentUnknown 11/30/2018Hunger ScreeningAnswerDate RecordedWithin the past 12 months we worried whether our food would run out before we got money to buy more.Never True04/03/2025Within the past 12 months the food we bought just didn't last and we didn't have money to get more.Never True04/03/2025Purpose - LifeAnswerDate RecordedPurpose and direction in drgmAdgxkbg88/11/2021Sex and Gender Information ValueDate RecordedSex Assigned at BirthNot on fileLegal FtgSrfa2601/24/2015 11:29 AM EDTGender IdentityNot on fileSexual OrientationNot on filedocumented as of this encounter Plan of Treatment DateTypeDepartmentCare Team (Latest Contact Info)Bflwltpbxuf64/06/2025 2:00 PM ESTOffice Visit [facility] [address] [place] [address] Javier Espinosa, [address] [place] [address] documented as of this encounter Procedures Procedure NamePriorityDate/TimeAssociated DiagnosisCommentsMR CERVICAL SPINE W WO TEOUSfyojnr75/22/2025 2:57 PM EDTdocumented in this encounter Results * MR cervical spine with and without contrast (04/11/2025 2:57 PM EDT)Anatomical RegionLateralityModalityMSK, Neuro, Spine, C-spine, Spine CoveraN/AMagnetic Resonance Narrative Authorizing ProviderResult TypeResult StatusNot In System Ref ProvIMG MRI ORDERABLESFinal Result documented in this encounter Visit Diagnoses Not on filedocumented in this encounter Additional Health Concerns AssessmentNoted TimePHQ-9 Depression Total Score: 4:28 PM EDT documented as of this encounter Care Teams Team MemberRelationshipSpecialtyStart DateEnd Date Javier Espinosa DO [address] [place] [address] PCP - GeneralInternal Wvvjuldx46/14/25documented as of this encounter
--- OUTSIDE RECORDS SUMMARY | 2025-04-16 09:27 | XMS_ITS ---
Author Organization [employer] tem Address [facility]-[id number] [address] [place] [address] Care Team Providers Care Dip Dyer Name Role Phone Javier Espinosa DO Primary Care Provider [phone] Active Problems ProblemNoted DateDiagnosed DateB12 tqtarvahgc98/20/0771B49 jnaamfpxsf82/18/2024 Type 2 diabetes mellitus with diabetic polyneuropathy, without long-term current use of hlhinhl6407/08/2023OCD (obsessive compulsive disorder)03/30/2023Mixed gohwfnaxukaode42/10/2020 Current Treatment and Therapy Plans No current plan information found. Other Current Plans Cyanocobalamin (vitamin B12) IM titration to monthly* Plan Start Date:05/31/2024 Plan Provider:Javier Espinosa DO Linked Problems B12 deficiency Treatment Medications No medications scheduled. Past Treatment and Therapy Plans No past plan information found. Lifetime Dose Tracking * ChemicalLifetime DoseAutomatic EntryManual EntryFluoroscopy6.2 mGy6.2 mGy0 mGy Resolved Problems ProblemNoted DateDiagnosed DateResolved DateMalignant neoplasm of colon, unspecified part of colon/03/2025
--- OUTSIDE RECORDS SUMMARY | 2025-04-16 09:27 | XMS_ITS | Clinical Summary ---
Author Organization [facility] Healthcare Address [address] [facility] [[email or web address] [address] Care Team Providers Care Supervisor Taping Name Role Phone Javier Espinosa MD Primary Care Provider [phone] Allergies Active AllergyReactionsCriticalityNoted LjzpIbkydbqdHxmfpdnhgfOggmdri98/02/2014 AfoigdvzgppiPkyvlsy69/11/1410HszywilfilWsndmkw09/26/2019 Medications MedicationSigDispense QuantityRefillsLast FilledStart DateEnd DateStatus albuterol HFA (Ventolin HFA) 90 mcg/act inhaler Inhale 2 puffs every 4 (four) hours if needed for wheezingActive ascorbic acid (Vitamin C) 500 MG chewable tablet Chew 500 mg 1 (one) time each day at the same timeActive ASPIRIN 81 MG chewable tablet Chew 81 mg DailyActive hyoscyamine (Anaspaz,Levsin) 0.125 MG tablet Take 0.125 mg by mouth every 6 (six) hours if needed for cramping or diarrhea 08/25/2022ctive levothyroxine (Synthroid, Levoxyl) 125 MCG tablet Take 125 mcg by mouth in the morning. Take before meals.05/06/2023ctive metFORMIN XR (Glucophage-XR) 500 MG 24 hr tablet Take 500 mg by mouth in the evening. Take with meals04/11/2023ctive omeprazole (PriLOSEC) [address] capsule Take 20 mg by mouth in the morning and 20 mg in the evening. Take before meals. 06/01/2023ctive oxyCODONE-acetaminophen (Percocet) 5-325 MG tablet Take 1 tablet by mouth every 6 (six) hours if sswxwd7808/21/2022ctive pravastatin (Pravachol) 40 MG tablet Take 40 mg by mouth at bkupiqd5403/31/2023ctive traZODone (Desyrel) 50 MG tablet Take 50 mg by mouth in the morning and 50 mg in the evening and 50 mg before bedtime.Active lisinopril 10 MG tablet Indications:Heart failure and kidney disease due to high blood pressure (HCC) Take 1 tablet (10 mg) by mouth in the morning. 30 tablet ctive glipiZIDE (Glucotrol) 10 MG tablet Indications:Type 2 diabetes mellitus with hyperglycemia, without long-term current use of insulin (HCC)Take 1 tablet (10 mg) by mouth in the morning and 1 tablet (10 mg) in the evening. Take before meals. 60 tablet ctive FLUoxetine (PROzac) 40 MG capsule Indications:Current moderate episode of major depressive disorder, unspecified whether recurrent (HCC)Take 2 capsules (80 mg) by mouth Daily 180 capsule 12/06/2023ctive nystatin (Mycostatin) 800022 UNIT/GM powder Indications:Erythema intertrigoApply to the affected area, twice a day when needed, 30 day supply 30 g ctive hydrocortisone 1 % ointment Indications:Erythema intertrigoApply thin layer to affected areas, twice a day as needed for flares, 30 day supply 28.4 g ctive triamcinolone (Kenalog) 0.1 % cream Indications:Lichen planusApply to affected areas, up to twice a day when flared, do not use one the face, groin, or underarms, 30 day supply 80 g ctive Active Problems No known active problems Family History Medical HistoryRelationNameCommentsMelanomaNeg Hx Social History Tobacco UseTypesPacks/DayYears UsedDateSmoking Tobacco: NeverSmokeless Tobacco: Never Tobacco Cessation:Counseling Given: Not Answered PHQ-2AnswerDate RecordedPatient Health Questionnaire-2 Anbjz40708/09/2022Sex and Gender InformationValueDate RecordedSex Assigned at BirthNot on fileLegal Sex Male09/02/2022 7:09 PM EDTGender IdentityNot on fileSexual OrientationNot on file Last Filed Vital Signs Vital SignReadingTime TakenCommentsBlood Uoagbtkv923/7604 12:00 PM EDT Pulse--Temperature--Respiratory Rate--Oxygen Saturation--Inhaled Oxygen Concentration--Hdqwsi17.1 kg (203 lb)10/17/2018 12:00 PM AAMOctswb573.9 cm (6') 06/09/2021 12:00 PM ESTBody Mass Index27.53010/17/2018 12:00 PM EDT Plan of Treatment DateTypeDepartmentCare Team (Latest Contact Info)Pgnszicsnlw91/06/2026 2:20 PM ESTOffice Visit [facility] [address] [place] [phone] Shani Rodriguez MD [address] [place] [address] [place] [address] Care Teams Team MemberRelationshipSpecialtyStart DateEnd Date Javier Espinosa MD [address] [place] [address] PCP - GeneralInternal Medicine03/06/24
--- OUTSIDE RECORDS SUMMARY | 2025-04-16 09:27 | XMS_ITS | Clinical Summary ---
Author Organization [employer] tem Address [id number] [address] [place] [address] Care Team Providers Care Tool Turret Lathe Set Up Operator Name Role Phone Javier Espinosa Primary Care Provider [phone] Allergies Active AllergyReactionsCriticalityNoted KhbvGkyifhzhWphjtrbuxiop18/11/2023 Wrlkwglcna40/26/5425Zahcebrvhn05/26/2019 Medications MedicationSigDispense QuantityRefillsLast FilledStart DateEnd DateStatus psyllium husk (METAMUCIL ORAL) in the morning.Active artificial tears,hypromellose, (ISOPTO TEARS) 0.5 % ophthalmic solution Administer 1 drop to both eyes as needed (15). 15 mL 07/18/2022ctive azelastine (ASTELIN) 137 mcg (0.1 %) nasal spray Indications:Seasonal allergic rhinitis, unspecified triggerOne spray in each nostril as needed for congestion or nose pain 30 mL ctive hydrocortisone (HYTONE) 1 % ointment 12/16/2023ctive ibuprofen (MOTRIN) 800 mg tablet Take 1 tablet (800 mg total) by mouth every 6 (six) hours as needed for pain. 21 tablet 04/13/2024ctive metroNIDAZOLE (MetrogeL) 1 % gel Indications:Acne rosaceaApply 1 Application topically in the morning. 60 g 05/09/2024ctive albuterol (PROVENTIL,VENTOLIN) 2.5 mg /3 mL (0.083 %) nebulizer solution Indications:Acute exacerbation of chronic obstructive pulmonary disease (COPD) ([facility])Inhale 3 mL (2.5 mg total) by nebulization 4 (four) times a day. 75 mL 5Active cyanocobalamin 1000 MCG tablet Indications:B12 deficiencyTAKE 1 TABLET BY MOUTH EVERY MORNING 90 tablet 5Active kjjhlcqdots-evrafzuif-dldotpcs (TRELEGY ELLIPTA) 200-62.5-25 mcg blister with device Indications:Chronic obstructive pulmonary disease, unspecified COPD type ([facility])Inhale 1 puff in the morning. 180 each 5Active Additional Information Patient not taking.Reason: Cost, Reported on 01/31/2025 pravastatin (PRAVACHOL) 40 mg tablet Indications:Hyperlipidemia, unspecified hyperlipidemia typeTAKE 1 TABLET BY MOUTH EVERY MORNING 90 tablet 5Active lisinopriL (PRINIVIL,ZESTRIL) 10 mg tablet Indications:Essential hypertensionTAKE 1 TABLET BY MOUTH EVERY MORNING 90 tablet 5Active nystatin (MYCOSTATIN) powder Indications:Dea rash of groinApply 1 Application topically in the morning and 1 Application at noon and 1 Application in the evening and 1 Application before bedtime. 30 g 5Active blood-glucose meter (TRUE METRIX GLUCOSE METER) [facility] Indications:Type 2 diabetes mellitus with diabetic polyneuropathy, without long- term current use of insulin ([facility])1 Device by miscellaneous route in the morning. 1 each 5Active blood sugar diagnostic (TRUE METRIX GLUCOSE TEST STRIP) strip Indications:Type 2 diabetes mellitus with diabetic polyneuropathy, without long- term current use of insulin ([facility])1 strip by other route every morning before breakfast. 100 strip 5Active lancets [facility] Indications:Type 2 diabetes mellitus with diabetic polyneuropathy, without long- term current use of insulin ([facility])1 Lancet by miscellaneous route in the morning. 100 each 5Active FLUoxetine (PROzac) 40 mg capsule Indications:Obsessive-compulsive disorder, unspecified typeTAKE 1 CAPSULE BY MOUTH EVERY MORNING 90 capsule 5Active metFORMIN XR (GLUCOPHAGE XR) 500 mg 24 hr tablet Indications:Type 2 diabetes mellitus with diabetic polyneuropathy, without long- term current use of insulin ([facility])TAKE 1 TABLET BY MOUTH EVERY MORNING AND TAKE 1 TABLET BEFORE BEDTIME 180 tablet 5Active levothyroxine (SYNTHROID, LEVOTHROID) 75 MCG tablet Indications:Hypothyroidism, unspecified typeTAKE 1 TABLET BY MOUTH EVERY MORNING 90 tablet 5Active levothyroxine (SYNTHROID, LEVOTHROID) 75 MCG tablet Indications:Hypothyroidism, unspecified typeTAKE 1 TABLET BY MOUTH EVERY MORNING ON AN EMPTY STOMACH SIX DAYS PER WEEK 77 tablet Discontinued metFORMIN XR (GLUCOPHAGE XR) 500 mg 24 hr tablet Indications:Type 2 diabetes mellitus with diabetic polyneuropathy, without long- term current use of insulin ([facility])TAKE 1 TABLET BY MOUTH EVERY MORNING AND 1 TABLET BEFORE BEDTIME 180 tablet Discontinued Active Problems ProblemNoted DateDiagnosed DateB12 ljisguzizj99/20/7863J65 csyglxpuha78/18/2024 Type 2 diabetes mellitus with diabetic polyneuropathy, without long-term current use of qhqkgbi8507/08/2023OCD (obsessive compulsive disorder)03/30/2023Mixed rbrnlzbmfefohm46/10/2020 Resolved Problems ProblemNoted DateDiagnosed DateResolved DateMalignant neoplasm of colon, unspecified part of colon Encounters DateTypeDepartmentCare KiujDyvotysszxe91/22/2025Orders Only [facility] [address] [place] [address] Ref Prov, Not In System 04/08/2025Refill [facility] [address] [place] [address] Javier Espinosa, Hypothyroidism, unspecified type04/06/2025Refill [facility] [address] [place] [address] Javier Espinosa, Type 2 diabetes mellitus with diabetic polyneuropathy, without long-term current use of insulin ([facility])04/04/2025Telephone [facility] [address] [place] [address] CheLorraine thacker CMA Er Follow-up04/03/2025 7:31 PM EDT - 04/03/2025 8:34 PM EDTEmergency [facility] [address] [place] [phone] Chronic right shoulder pain (Primary Dx) Discharge Disposition: Home03/26/2025Results [facility] [address] [place] [phone] Javier Espinosa, MR cervical spine with and without bnzevbyf76/26/2025Orders Only [facility] [address] [place] [phone] External, Scanning Provider 03/08/2025 1:00 PM EDTSupport Visit [facility] - Diabetes and Nutrition Education [address] [place] [address] Javier Espinosa, Madelaine Rush LD Type 2 diabetes mellitus with diabetic polyneuropathy, without long-term current use of insulin ([facility])03/08/20258496Wqntuj73/15/2025[facility] [address] [place] [phone] Javier Espinosa DO Obsessive-compulsive disorder, unspecified type02/17/2025Refill [facility] [address] [place] [address] Javier Espinosa, Laryngopharyngeal reflux (LPR)02/06/2025Orders Only [facility] [address] [place] [phone] Javier Espinosa DO Type 2 diabetes mellitus with diabetic polyneuropathy, without long-term current use of insulin ([facility]) (Primary Dx)02/06/2025Telephone [facility] [address] [place] [phone] MarileeElda, [facility] Med Ycyqsr9102/01/2025Telephone [facility] - Diabetes [address] [place] [phone] Moeller Ana, [facility] 01/31/2025 4:00 PM EDTOffice Visit [facility] [address] [address] Javier Espinosa, Type 2 diabetes mellitus with diabetic polyneuropathy, without long-term current use of insulin ([facility]) (Primary Dx); Dea rash of groin; Laryngopharyngeal reflux (LPR)01/31/20257250Qrhgfm28/02/2025Refill [facility] [address] [place] [address] Javier Espinosa DO Essential hypertensionfrom Last 3 Months Immunizations ImmunizationAdministration DatesNext DueHep A / Hep B008/21/2020,07/04/2020 Influenza (IM) Preservative Free05/06/2017,04/20/2016Influenza, Injectable, quadrivalent (PF)04/29/2021,04/06/2019Tdap108/11/2009Zoster Vaccine Recombinant 11/22/2020,07/04/2020 Family History Medical HistoryRelationNameCommentsHypertensionBrotherHeart diseaseFatherCancer MotherAtrial fibrillationSisterHeart diseaseSisterHypertensionSisterRelationName StatusCommentsBrotherFatherDeceasedMotherDeceasedSister Social History Tobacco UseTypesPacks/DayYears UsedDateSmoking Tobacco: FormerCigarettes1.520 1981 - 2001Smokeless Tobacco: Never Tobacco Cessation:Counseling Given: Not Answered Comments:Quit over 20 years ago Alcohol UseStandard Drinks/WeekCommentsNot Currently0 (1 standard drink = 0.6 oz pure alcohol)PHQ-2AnswerDate RecordedTotal Cgyac3275ChildcareAnswerDate CksbrrcdNkdhmuzxoPtvmhjs88/12/2019EmploymentAnswerDate RecordedEmploymentUnknown 11/30/2018Hunger ScreeningAnswerDate RecordedWithin the past 12 months we worried whether our food would run out before we got money to buy more.Never True04/03/2025Within the past 12 months the food we bought just didn't last and we didn't have money to get more.Never True04/03/2025Purpose - LifeAnswerDate RecordedPurpose and direction in fytwBabahpx85/11/2021ex and Gender Information ValueDate RecordedSex Assigned at BirthNot on fileLegal CogTfvm9901/24/2015 11:29 AM EDTGender IdentityNot on fileSexual OrientationNot on file Last Filed Vital Signs Vital SignReadingTime TakenCommentsBlood Wlmuiqjd627/7404/03/2025 8:32 PM EDT Ymhqu769704/03/2025 8:32 PM FMOMaqsnriybbq47.4 ??C (97.6 ??F)04/03/2025 7:38 PM EDTRespiratory Oygd8211 8:32 PM EDTOxygen Klygeciwkr52%04/03/2025 8:32 PM EDTInhaled Oxygen Concentration--Imlvpa70.7 kg (200 lb)04/03/2025 7:38 PM EDT Alqdmh843.8 cm (5' 10 )04/03/2025 7:38 PM EDTBody Mass Index28.710 7:38 PM EDT Plan of Treatment DateTypeDepartmentCare Team (Latest Contact Info)Ucwgownkurf88/06/2025 2:00 PM ESTOffice Visit [facility] [address] [place] [phone] Javier Espinosa, [address] [place] [address] Health MaintenanceDue DateLast DoneCommentsDiabetic Ophthalmology Exam1955 Medicare Annual Wellness Visit1955dult BMI Follow Up Plan1975 DTaP,Tdap and Td Vaccines (2 - Td or Tdap)/2010Abdominal Aortic Aneurysm (AAA) Qjbofa332Diabetic Foot Exam507/01/2024Influenza Guvrcyt85/02/2021, 04/06/2019, 05/06/2017, Additional history exists Statin Use: Yghcptgk02/Depression Anxhazepv96/ Fall Risk Uvukytfkh82/dult BMI Zktpwjzlp98/ Tobacco Mblsedrfe06/9044Ajlslaghxvf55/10/202804/03/2023, 09/28/2022, 05/18/2022, Additional history existsZoster (Shingles) Vaccine Gachhbpbu50/04/2021, 07/04/2020 Medical Devices Not on file Procedures Procedure NamePriorityDate/TimeAssociated DiagnosisCommentsMR CERVICAL SPINE W WO DSQVFbiwaeh25/22/2025 2:57 PM EDTXR SHOULDER RT MIN 2 RUWIVQW85/14/2025 7:57 PM EDT AMB REFERRAL TO DIABETIC NEESEEGACNauxtbf31/18/2025 2:46 PM EDT Type 2 diabetes mellitus with diabetic polyneuropathy, without long-term current use of insulin ([facility]) UAAYFUFSAXW17/10/2023 9:52 AM EDT from Last 3 Months or Most Recently Relevant to Health Maintenance Results * MR cervical spine with and without contrast (04/11/2025 2:57 PM EDT)Anatomical RegionLateralityModalityMSK, Neuro, Spine, C-spine, Spine CoveraN/AMagnetic Resonance Narrative Authorizing ProviderResult TypeResult StatusNot In System Ref ProvIMG MRI ORDERABLESFinal Result * X-ray shoulder right minimum 2 views [...] on 04/03/2025 8:21 PM Authorizing ProviderResult TypeResult StatusLaurita Stack INTERMEDIATE DESIGNER-CNPIMG DIAGNOSTIC IMAGING ORDERABLESFinal Result * Ambulatory referral to Diabetic Education (03/08/2025 2:46 PM EDT) Narrative Authorizing ProviderResult TypeResult StatusJavier Espinosa DOOUTPATIENT REFERRAL ORDERABLESFinal ResultPerforming OrganizationAddressCity/State/ZIP CodePhone Number MANUALLY TRANSCRIBED RESULTS * Colonoscopy (09/28/2022 9:52 AM EDT)Specimen (Source)Anatomical Location / LateralityCollection Method / VolumeCollection TimeReceived Time09/28/2022 9:52 AM EDT Narrative PM CARDIOVASCULAR - 09/28/2022 10:13 AM EDT [facility] Patient Name: Onesimo Caldwell ?? Procedure Date No Time: 09/28/2022 ?? CSN : [id number] Date of : 1955 Admit Type: Outpatient Age: 67 Room: [place] [address] Gender: Male Note Status: Finalized Attending MD: Dawood Hitchcock DO, Procedure: ? Colonoscopy Indications: ? Screening for colorectal malignant neoplasm, Personal ? history of malignant neoplasm of the colon Providers: ? Dawood Hitchcock DO Referring MD: ?Dawood Hitchcock DO Medicines: ? Propofol per Anesthesia Complications: ? No immediate complications. Procedure: ? After I obtained informed consent, the scope was ? passed under direct vision. Throughout the procedure, ? the patient's blood pressure, pulse, and oxygen ? saturations were monitored continuously. The OLYMNPUS ? [id number] #[id number] ADULT COLONOSCOPE was introduced ? through the anus and advanced to the ileocolonic ? anastomosis. The colonoscopy was performed without ? difficulty. The patient tolerated the procedure well. ? The quality of the bowel preparation was adequate to ? identify polyps greater than 5 mm in size. Findings: ? The perianal and digital rectal examinations were normal. ? A 5 mm polyp was found in the mid rectum. The polyp was sessile. The ? polyp was removed with a hot snare. Resection and retrieval were ? complete. ? The exam was otherwise without abnormality on direct and retroflexion ? views. Estimated Blood Loss: ??Estimated blood loss: none. Impression: ?- One 5 mm polyp in the mid rectum, removed with a hot ? snare. Resected and retrieved. ? - The examination was otherwise normal on direct and ? retroflexion views. Recommendation: ?- Discharge patient to home. ? - Patient has a contact number available for ? emergencies. The signs and symptoms of potential ? delayed complications were discussed with the patient. ? Return to normal activities tomorrow. Written ? discharge instructions were provided to the patient. ? - Repeat colonoscopy in 5 years for surveillance based ? on pathology results. ? - Return to my office PRN. Procedure Code(s): ? --- Professional --- ? 39367, Colonoscopy, flexible; with removal of ? tumor(s), polyp(s), or other lesion(s) by snare ? technique Diagnosis Code(s): ? --- Professional --- ? Z12.11, Encounter for screening for malignant neoplasm of colon ? D12.8, Benign neoplasm of rectum ? Z85.038, Personal history of other malignant neoplasm of large intestine CPT copyright 2021 [employer]. All rights reserved. The codes documented in this report are preliminary and upon tobacco sorter review may be revised to meet current compliance requirements. DO Dawood Reis DO 09/28/2022 10:13:13 AM Number of Addenda: 0 Note Initiated On: 09/28/2022 9:52 AM Procedure Note Dawood Hitchcock DO - 09/28/2022 [facility] Patient Name: Onesimo Caldwell Procedure Date No Time: 09/28/2022 CSN : [id number] Date of : 1955 Admit Type: Outpatient Age: 67 Room: [place] [address] Gender: Male Note Status: Finalized Attending MD: [...] pulse, and oxygen saturations were monitored continuously. [facility] CF-[id number] #[id number] ADULT COLONOSCOPE was introduced through the anus [...] office PRN. Procedure Code(s): --- Professional --- 81020, Colonoscopy, flexible; with removal of tumor(s), polyp(s), or other lesion(s) by snare technique Diagnosis Code(s): --- Professional --- Z12.11, Encounter for screening for malignant neoplasm of colon D12.8, Benign neoplasm of rectum Z85.038, Personal history of other malignant neoplasm of largeintestine CPT copyright 2021 [employer]. All rights reserved. The codes documented in this report are preliminary and upon tobacco sorter reviewmay be revised to meet current compliance requirements. DO Dawood Reis DO 09/28/2022 10:13:13 AM Number of Addenda: 0 Note Initiated On: 09/28/2022 9:52 AM Authorizing ProviderResult TypeResult StatusMicpanda FRIAS PROCEDURE ORDERABLESFinal ResultPerforming OrganizationAddressCity/State/ZIP CodePhone Number PM CARDIOVASCULAR from Last 3 Months or Most Recently Relevant to Health Maintenance Insurance [address] [place] [address] , [place] [address] Care Teams Team MemberRelationshipSpecialtyStart DateEnd Date Javier Espinosa DO [address] [place] [address] PCP - GeneralInternal Utdhnbpo36/14/25
--- OUTSIDE RECORDS SUMMARY | 2025-04-16 09:27 | XMS_ITS | Encounter Summary ---
Author Organization [facility] tem Address [facility] [id number] [address] [place] [address] Care Team Providers Care Seasonal Driver Name Role Phone Javier Espinosa Primary Care Provider [phone] Reason for Visit * ReasonOnset DateCommentsEr Follow-up04/04/2025 Encounter Details DateTypeDepartmentCare Team (Latest Contact Info)Nhekecyknxj04/15/2025Telephone [facility] [address] [place] [phone] Lorraine Viveros CMA Er Follow-up Social History Tobacco UseTypesPacks/DayYears UsedDateSmoking Tobacco: FormerCigarettes1.520 1981 - 2001Smokeless Tobacco: Never Comments:Quit over 20 years ago Alcohol UseStandard Drinks/WeekCommentsNot Currently0 (1 standard drink = 0.6 oz pure alcohol)PHQ-2AnswerDate RecordedTotal Cgpun2705ChildcareAnswerDate NidhfledBqvdmchndHpycjxq75/12/2019EmploymentAnswerDate RecordedEmploymentUnknown 11/30/2018Hunger ScreeningAnswerDate RecordedWithin the past 12 months we worried whether our food would run out before we got money to buy more.Never True04/03/2025Within the past 12 months the food we bought just didn't last and we didn't have money to get more.Never True04/03/2025Purpose - LifeAnswerDate RecordedPurpose and direction in hzalOqaiwdl34/11/2021ex and Gender Information ValueDate RecordedSex Assigned at BirthNot on fileLegal ZhkStbu5201/24/2015 11:29 AM EDTGender IdentityNot on fileSexual OrientationNot on filedocumented as of this encounter Miscellaneous Notes * Telephone Encounter - Lorraine Viveros CMA - 04/04/2025 9:08 AM EDT ED Outreach This documentation is being used for Transition of Care purposes: Yes/No: Yes ED Outreach Date: April 04, 2025 ED Outreach Method: COMMUNICATION METHOD: Telephone ED Outreach Attempt: second ED Outreach Outcome: No Answer/Busy Name of ED Facility: [facility] Date of ED Discharge: 04/03/2025 Discharge Diagnosis: Chronic right shoulder pain ED Chief Complaint: shoulder pain Current Symptom Status: Medication Changes Reviewed: Medication Questions/Concerns: Follow-up PCP Scheduled: Follow-up Specialist Scheduled: Follow up Testing Scheduled: Patient Contacted Office Prior to ED Visit: Additional Comments: Attempted to contact. Unable to leave message on voicemail. Second attempt to contact patient. Will wait for patient to contact the office with any follow up needs. documented in this encounter Plan of Treatment DateTypeDepartmentCare Team (Latest Contact Info)Rfuutgqkbtc78/06/2025 2:00 PM ESTOffice Visit [facility] [address] [place] [address] Javier Espinosa DO [address] [place] [address] documented as of this encounter Visit Diagnoses Not on filedocumented in this encounter Additional Health Concerns AssessmentNoted TimePHQ-9 Depression Total Score: 4:28 PM EDT documented as of this encounter Care Teams Team MemberRelationshipSpecialtyStart DateEnd Date Javier Espinosa DO [address] [place] [address] PCP - GeneralInternal Caiwywqk18/14/25documented as of this encounter
--- OUTSIDE RECORDS SUMMARY | 2025-04-16 09:27 | XMS_ITS | Clinical Summary ---
Author Organization [facility] Address [address] [place] [address] Care Team Providers Care Roof Truss Builder Name Role Phone Unavailable Primary Care Provider Unavailabl e Social History Tobacco UseTypesPacks/DayYears UsedDateSmoking Tobacco: Never AssessedSex and Gender InformationValueDate RecordedSex Assigned at BirthNot on fileLegal Sex Male12/17/2021 10:24 PM EDTGender IdentityNot on fileSexual OrientationNot on file Last Filed Vital Signs Vital SignReadingTime TakenCommentsBlood Tdhstlen085/90954 2:07 PM EST Cdpun656804/24/2020 2:07 PM HZKWyktktttaqr03.5 ??C (97.7 ??F)04/24/2020 2:06 PM ESTRespiratory Rate--Oxygen Doemoertci36%10/25/2019 1:46 PM EDTInhaled Oxygen Concentration--Djusfg214 kg (226 lb)04/24/2020 2:05 PM NUQGvkply947.3 cm (5' 11 )04/24/2020 2:05 PM ESTBody Mass Index31.5204/24/2020 2:05 PM EST Plan of Treatment Not on file
[2025-04-16 10:10] VITALS: BP 127/76; PULSE 58; TEMP 36.1; O2SAT 100
[2025-04-16 10:50] VITALS: BP 121/75; BP 140/87; PULSE 70; PULSE 73; O2SAT 98; O2SAT 99
--- NOTE | 2025-04-16 10:52 | P.ON_ITS ---
Date of procedure: 04/16/25 Pre-op diagnosis: M54.12 Post-op diagnosis: same as pre-op Procedure: Procedure: Left C5-6, 6-7 transforaminal epidural steroid injection Medications: Bupivacaine 0.25% 1cc, lidocaine 2% 1cc, dexamethasone 10mg The patient was seen and examined in the preoperative holding area.? Informed consent was obtained and placed on the chart.? Patient was brought to the medical procedure unit and placed in the prone position where a timeout was completed verifying the correct patient, procedure site, position, and planned special equipment using sterile aseptic technique.? Under direct fluoroscopic visualization a 25-gauge Quincke tipped spinal needle was advanced to the designated neural foramen where contrast dye was injected to show adequate spread.? The needle was inserted at level left C5-6. There was no evidence of vascular or adverse uptake.? Epidural spread was appreciated.? The above- mentioned injectate was then placed in a 1.5 mL aliquot preceded by negative aspiration.? The needle was removed. The needle was inserted and the procedure repeated at level left C6-7.? The surgery site was covered.? Patient was taken to the postprocedural recovery area and monitored for an appropriate length of time before found suitable for discharge in the accompaniment of a responsible adult. Anesthesia: Local Surgeon: Radha Chinchilla Pathology: none sent Condition: stable Disposition: no change
[2025-04-16] MEDS: BUPIVACAINE HCL 0.25% PF 25 MG/10 ML VIAL INJ (10:54)
[2025-04-16] MEDS: DEXAMETHASONE SOD PHOS 10 MG/ML VIAL INJ (10:54)
[2025-04-16] MEDS: LIDOCAINE HCL 2% 400 MG/20 ML MDV 3 ML INJ (10:55)
[2025-04-16] MEDS: IOHEXOL 240 MG/ML - 10 ML VIAL 24 MG INJ (10:55)
== END 2025-04-16 10:58 | disposition home or self-care (01) ==
PROVIDERS: PCP Internal Medicine; Visit Provider Anesthesiology
DX: M54.12 Radiculopathy, cervical region (principal); E11.8 Type 2 diabetes mellitus with unspecified complications; Z79.84 Long term (current) use of oral hypoglycemic drugs
CPT/HCPCS: 36415; 64479; 64480; 82948; J0665; J1100; Q9966

== ENCOUNTER 2025-04-25 13:28 | Outpatient (OUT) | payer MEDICARE, OTHER, SELFPAY ==
--- OUTSIDE RECORDS SUMMARY | 2025-04-25 13:32 | XMS_ITS | Clinical Summary ---
Author Organization [facility] Healthcare Address [address] [place] [address] Care Team Providers Care Managing Director Atlas Name Role Phone Javier Espinosa MD Primary Care Provider [phone] Allergies Active AllergyReactionsCriticalityNoted QjspEshwazpnDndzzyowgdEfpywyb36/02/2014 ZekgohbyvilnYrpzwbg13/11/1780AcbvtyhzduYxnfquq70/26/2019 Medications MedicationSigDispense QuantityRefillsLast FilledStart DateEnd DateStatus albuterol [...] by mouth every 6 (six) hours if ubfqwb6808/21/2022ctive pravastatin (Pravachol) 40 MG tablet Take 40 mg by mouth at atinnnx3303/31/2023ctive traZODone (Desyrel) 50 MG tablet Take 50 [...] mouth Daily 180 capsule 12/06/2023ctive nystatin (Mycostatin) 544307 UNIT/GM powder Indications:Erythema intertrigoApply to the affected [...] Given: Not Answered PHQ-2AnswerDate RecordedPatient Health Questionnaire-2 Nvlzw42508/09/2022Sex and Gender InformationValueDate RecordedSex Assigned at BirthNot on fileLegal Sex Male09/02/2022 7:09 PM EDTGender IdentityNot on fileSexual OrientationNot on file Last Filed Vital Signs Vital SignReadingTime TakenCommentsBlood Xqvnrevm728/7604 12:00 PM EDT Pulse--Temperature--Respiratory Rate--Oxygen Saturation--Inhaled Oxygen Concentration--Vbcbgn41.1 kg (203 lb)10/17/2018 12:00 PM BTGIoaokn592.9 cm (6') 06/09/2021 12:00 PM ESTBody Mass Index27.53010/17/2018 12:00 PM EDT Plan of Treatment DateTypeDepartmentCare Team (Latest Contact Info)Xtbotdyhcce60/06/2026 2:20 PM ESTOffice Visit [facility] [address] [place] [phone] Shani Rodriguez MD [address] [place] [address] [place] [address] Care Teams Team MemberRelationshipSpecialtyStart DateEnd Date Javier Espinosa MD [address] [place] [address] PCP - GeneralInternal Medicine03/06/24
--- OUTSIDE RECORDS SUMMARY | 2025-04-25 13:32 | XMS_ITS | Clinical Summary ---
Author Organization [facility] Address [address] [place] [address] Care Team Providers Care Lead Technical Architect Name Role Phone Unavailable Primary Care Provider Unavailabl e Social History Tobacco UseTypesPacks/DayYears UsedDateSmoking Tobacco: Never AssessedSex and Gender InformationValueDate RecordedSex Assigned at BirthNot on fileLegal Sex Male12/17/2021 10:24 PM EDTGender IdentityNot on fileSexual OrientationNot on file Last Filed Vital Signs Vital SignReadingTime TakenCommentsBlood Rdaulxpo867/99083 2:07 PM EST Cljzc954304/24/2020 2:07 PM TXQKhpmtnxfzms20.5 ??C (97.7 ??F)04/24/2020 2:06 PM ESTRespiratory Rate--Oxygen Zpeafelpmc15%10/25/2019 1:46 PM EDTInhaled Oxygen Concentration--Fnyunl066 kg (226 lb)04/24/2020 2:05 PM JLNSdyozb137.3 cm (5' 11 )04/24/2020 2:05 PM ESTBody Mass Index31.5204/24/2020 2:05 PM EST Plan of Treatment Not on file
--- OUTSIDE RECORDS SUMMARY | 2025-04-25 13:32 | XMS_ITS | Clinical Summary ---
Author Organization [facility] Address [address] [place] [address] Care Team Providers Care Melter Helper Name Role Phone Mann Baker MD Primary Care Provider [phone] Allergies Active AllergyReactionsCriticalityNoted ZdfvCugjwdfeTgsqrnttadNkhkovn01/02/2014 Medications MedicationSigDispense QuantityRefillsLast FilledStart DateEnd DateStatus SUMAtriptan (IMITREX) 50 mg tablet Take 50 mg by mouth as needed.Active Omeprazole Magnesium (PRILOSEC OTC) 20 mg tablet Take 20 mg by mouth twice daily.Active pravastatin (PRAVACHOL) 40 mg tablet Take 40 mg by mouth once daily.Active levothyroxine (LEVOXYL) 100 mcg tablet Take 100 mcg by mouth daily before breakfast.Active FLUoxetine HCl (PROZAC) 40 mg capsule Take 40 mg by mouth once daily.Active FLUOXETINE HCL (PROZAC ORAL) Take 80 mg by mouth once daily.Active haloperidol 0.5 mg tablet Take 0.5 mg by mouth once daily.Active albuterol HFA (VENTOLIN HFA) 90 mcg/actuation inhaler Inhale 2 Puffs as instructed every 6 hours as needed.Active aspirin, enteric coated 81 mg EC tablet Take 81 mg by mouth once daily.Active ferrous sulfate 325 mg (65 mg iron) tablet Take 325 mg by mouth daily with breakfast.Active glipiZIDE (GLUCOTROL) 10 mg tablet Take 10 mg by mouth twice daily before meals.Active lisinopril (ZESTRIL, PRINIVIL) 5 mg tablet Take 5 mg by mouth once daily.Active metFORMIN (GLUCOPHAGE) 500 mg tablet Take 500 mg by mouth twice daily with meals.Active sucralfate (CARAFATE) 1 gram tablet Take 1 g by mouth four times daily.Active Active Problems ProblemNoted DateDiagnosed DateHerniated disc Overview (02/13/2014): c5/6 OCD (obsessive compulsive disorder)HypothyroidismDM (diabetes mellitus) HyperlipidemiaColon cancerTourette's Family History Medical HistoryRelationCommentsCoronary Artery DiseaseFatherage 80 complications gallbladder surgeryColon CancerMotherage 72 CARelationStatusCommentsFatherMother Social History Tobacco UseTypesPacks/DayYears UsedDateSmoking Tobacco: FormerCigarettes1.531 06/21/1974 - 06/21/2005lcohol UseStandard Drinks/WeekCommentsNo0 (1 standard drink = 0.6 oz pure alcohol)PHQ-2AnswerDate RecordedPHQ-2 xuiqo305Area Deprivation IndexAnswerDate RecordedNational Score (1-100), lower number is lower riskNot on file05/29/2020State Score (1-10), lower number is lower riskNot on file05/29/2020Data from: https://www.neighborhoodatlas.medicine.[facility]/. Last address used for calculationNot on file05/29/2020Sex and Gender Information ValueDate RecordedSex Assigned at BirthNot on fileLegal MvxPskb7502/01/2014 9:14 AM EDTGender IdentityNot on fileSexual OrientationNot on file Last Filed Vital Signs Vital SignReadingTime TakenCommentsBlood Wsypijto154/8310 10:27 AM EDT Eydbe001504/14/2018 10:27 AM HRHAibrocfwhfl76.6 ??C (97.9 ??F)04/14/2018 10:27 AM EDTRespiratory Yulq8150 10:27 AM EDTOxygen Dwmueiyxhz012%04/14/2018 10:27 AM EDTInhaled Oxygen Concentration--Zljkuk45.2 kg (194 lb 8 oz)04/14/2018 10:27 AM PJJUexxay748.9 cm (6' 0.01 )04/14/2018 10:27 AM EDTBody Mass Index26.37 04/14/2018 10:27 AM EDT Plan of Treatment Health MaintenanceDue DateLast DoneCommentsAbdominal Aortic Aneurysm Screening 1957Anxiety Owilmoqyr49/17/1975Depression Gwzsysjou24/17/1975Hepatitis C Hyuvoxevv67/17/1975DTaP,Tdap,Td Vaccine (1 - Tdap)02/05/1976Lipid Screening 02/05/1992CT Hmskqujtyiad43/17/2002Cologuard (FIT-DNA)2002Colonoscopy 2002Colorectal Cancer Mfaafetxi68/17/2002Fecal Occult Blood2002 Prostate Cancer Screening Rinmxeuoja24/17/1049Zltcswffuphmi00/17/2002 Pneumococcal Vaccine: 50+ (1 of 1 - PCV)2007Shingrix Vaccine (1 of 2) 2007Diabetes Pzkzeelxb20/26/Advance Directive Discussion 06/21/2024ovid-19 Vaccine (1 - season)2025Influenza Vaccine (#1) 2025RSV Vaccine (1 - 1-dose 75+ series)02/05/2032 Insurance Care Teams Team MemberRelationshipSpecialtyStart DateEnd Date Mann Baker MD [address] [place] [address] PCP - GeneralFamily Gbqsgwpb26/4/18
--- NOTE | 2025-04-25 13:59 | PM.CN ---
Consult Note: HPI Data of Consult Patient: known to practice within the last 3 years Consult date: 04/25/25 Requesting Physician: Rima Abraham NP Primary Care Provider: ALEC VANESSA Consult Narrative Reason for consult: neck pain Narrative: Onesimo Caldwell a pleasant 70 year old male presents for evaluation of neck pain. pt has had chronic neck and LUE pain > 12 months unresponsive to > 6 weeks of PT/HEP, heat, ice, tylenol, NSAIDs. cervical xray and MRI consistent with listhesis at C3-4, moderate DDD, and moderate to severe central/foraminal narrowing C3-6. Pain today 2-3/10 increasing to 5/10 with [address] and reaching. pain well controlled at this time with pain patch, posture brace, and recent TFESI. on 04-16-25 underwent C5-6 C6-7 TFESI under fluoroscopy with 80% improvement per patient. MERY improved at 14% cc:: CC: Rima Abraham NP Review of Systems ROS Musculoskeletal Reports: neck pain Meds Home Medications and Allergies Home Medications ?Medication ?Instructions ?Recorded ?Confirmed ?Type fluoxetine 40 mg capsule (Prozac) 40 mg PO QAM 11/29/24 04/16/25 History levothyroxine 75 mcg capsule 75 mcg PO DAILY 11/29/24 04/16/25 History lisinopril 10 mg tablet 10 mg PO DAILY 11/29/24 04/16/25 History metformin 500 mg tablet 500 mg PO BID 11/29/24 04/16/25 History omeprazole 20 mg capsule,delayed 20 mg PO DAILY 11/29/24 04/16/25 History release pravastatin 40 mg tablet 40 mg PO DAILY 11/29/24 04/16/25 History baclofen 10 mg tablet See Rx Instructions .Route 02/14/25 04/16/25 Rx .COMPLEX PRN muscle spasm #60 tabs Allergies Allergy/AdvReac Type Severity Reaction Status Date / Time metaxalone (From Skelaxin) Allergy Unknown Unknown Verified 04/16/25 10:08 pioglitazone Allergy Unknown Unknown Verified 04/16/25 10:08 tizanidine Allergy Unknown Unknown Verified 04/16/25 10:08 Exam Constitutional Documenting provider has reviewed patient's vital signs: yes Common normals: no apparent distress, oriented x3, healthy appearing, alert and well nourished General appearance: cooperative HENMT Common normals: normocephalic, hearing grossly normal bilaterally and moist oral mucous membranes Head and scalp: normocephalic Eye Common normals: PERRL Pupil: PERRL Neck & C-Spine Common normals: full ROM General: normal visual inspection Cervical spine: pain with cervical ROM; cervical ROM not abnormal and no cervical spine tenderness Other: negative spurlings strength 5/5 in BUE mild facet loading pt non tender over cervical facets tenderness noted to left greater and lesser occipital nerve Chest Common normals: inspection of chest normal Respiratory Common normals: normal respiratory effort, no retractions and no use of accessory muscles Back & Pelvis Thoracic spine/upper back: thoracic ROM normal; no pain with ROM and no thoracic spinal tenderness Lumbar spine/lower back: no pain with ROM and no lumbar spinal tenderness Other: no increased pain with facet loading or palpation strength 5/5 in BLE sensation intact Neuro Common normals: oriented x3 Sensorium/orientation: alert Psych Common normals: mental status grossly normal, thought process normal, cooperative, affect normal, speech normal and activity/motor behavior normal Speech: normal speech Thought process: normal thought process Results Additional Findings Additional findings: If on a controlled substance or opioids, I have checked an [place] report on this patient and there are no aberrancies noted in the prescribing history.??If on a controlled substance or opioid a drug screen was completed and reviewed within the last year, and if there has not been a drug screen completed we ordered one today to monitor higher risk, state monitored pain medication use. As part of providing excellent, safe, comprehensive care, the following was completed at our patient's visit: 1. A medication reconciliation and review to ensure accurate knowledge of current/active medications, including asking our patients to inform us about any wovz-kqx-hribucn medications or herbal remedies/nutritional supplements/alternative remedies. 2. A review to specifically ensure our patients have had annual screening for screening for depression, screening for tobacco use, and screening for unhealthy alcohol use. For concerning screenings had a discussion with the patient, provided patient education, and recommended follow-up with primary care provider when appropriate. If patient noted with a risk of falling, they received education on strength, gait, and balance training to prevent future risk of falling. Portions of this note may have been carried over from the previous visit and updated as appropriate. Please note this office utilizes paper charting in addition to the electronic medical record. A list of current medications, vitals, and PMH is available there as the clinical staff outside of myself do not have access to [facility] charting during the clinic day operations. As part of providing quality comprehensive care the current medications, vitals, and PMH were reviewed in the paper chart. Assessment and Plan Assessment and Plan (1) Cervical spinal stenosis: Assessment and Plan: The patient has had over 3 months of moderate to severe neck and LUE pain with functional impairment and inadequate response to conservative care including NSAIDS (unless there are contraindication such as concurrent blood thinners), multiple oral or topical pain medications, and home exercise program/physical therapy.? Patient has completed >6 weeks of guided home exercise program and/or formal physical therapy program without relief of their symptoms.? The Oswestry Disability Index was completed, and the patient scored a 14%.? (2) Cervical radiculopathy: (3) Cervical spondylosis: (4) Myalgia: Plan upcoming NS consultation with Dr Rodriguez. pain well controlled at this time continue baclofen 5-10mg BID PRN pain/spasms f/u 3 months, sooner if needed
== END 2025-04-25 13:29 | disposition home or self-care (01) ==
LOC: PM 13:29
PROVIDERS: PCP Internal Medicine; Visit Provider Nurse Practitioner
DX: M48.02 Spinal stenosis, cervical region (principal); M54.12 Radiculopathy, cervical region; M47.812 Spondylosis without myelopathy or radiculopathy, cervical region; M79.18 Myalgia, other site
CPT/HCPCS: G0463